=== PATIENT | male | born 1935 | race Caucasian/White ===

== ENCOUNTER 2017-02-10 11:36 | Inpatient (IN) | payer MEDICARE, OTHER ==
[~2017-02-10] VITALS: Ht 172.7 cm; Wt 88.2 kg
[2017-02-10] MEDS: IV NORMAL SALINE 1000ML BAG 1,000 ML IV SCH ×2 (01:30→15:45)
[~2017-02-10 11:36] MED LIST: ASPI-482 PO; GLIP10TA13 PO; INSU100I13 SQ; LOVA40TA2 PO; PIOG45TA19 PO
[2017-02-10 12:14] LABS: BILIRUBIN,URINE NEGATIVE (NEG); GLUCOSE,URINE 500 mg/dL (NEG); NITRITE,URINE NEGATIVE (NEG); PROTEIN,URINE 100 mg/dL (NEG-TRACE); UROBILINOGEN,URINE 0.2 mg/dL (0.2 mg/dL)
[2017-02-10] MEDS ORDERED: ONDANSETRON PF 4 MG/2 ML VIAL. IV ONE (12:15)
[2017-02-10] MEDS ORDERED: MORPHINE SULFATE 4 MG/ML DISP.SYRIN. IV ONE (12:15)
--- NOTE | 2017-02-10 12:17 | PHYS DOC ---
Past Medical History Past Medical History: CAD, Diabetes-Type II, Hypertension, Renal Disease, Unknown, Other Additional Past Medical Histor: enlarged prostate, 1 functioning kidney Past Surgical History: Cancer Surgery, Coronary Bypass Surgery, Knee Replacement Additional Past Surgical Histo: cardiac bypass, back, prostate Alcohol Use: None Drug Use: None Adult General Chief Complaint Chief Complaint: MULTIPLE COMPLAINTS HPI HPI 81-year-old male who reports he awoke with significant right-sided flank pain that does radiate somewhat into his right groin area. He also reports some mild dysuria type symptoms. Denies any fever or chills. Denies any nausea or vomiting. Upon my initial assessment, the patient does not appear to be in any acute distress but does rate his pain an 8 out of 10) early to the right CVA region. Patient does have history of kidney disease and is currently in the process of discussing dialysis. He states he only has one functional right kidney. His left kidney apparently atrophied many years ago for unknown reasons. Denies any history of significant abdominal surgery but has history of open-heart surgery. Pulses last bowel movement was yesterday morning and was not abnormal but he does report he has been constipated. He denies any blood in his stool. Review of Systems Review of Systems Constitutional: Denies fever or chills [] Eyes: Denies change in visual acuity, redness, or eye pain [] HENT: Denies nasal congestion or sore throat [] Respiratory: Denies cough or shortness of breath [] Cardiovascular: No additional information not addressed in HPI [] GI: Has abdominal pain, denies nausea, denies vomiting, denies bloody stools or diarrhea [] : Has dysuria, denies hematuria [] Musculoskeletal: Denies back pain or joint pain [] Integument: Denies rash or skin lesions [] Neurologic: Denies headache, focal weakness or sensory changes [] Endocrine: Denies polyuria or polydipsia [] Current Medications Current Medications Current Medications Medications (Trade) Dose Ordered Sig/Naldo Start Time Stop Time Status Last Admin Dose Admin Ceftriaxone Sodium 50 ml @ 100 mls/hr 1X ONCE 02/10/17 13:30 02/10/17 13:59 DC 02/10/17 13:33 100 MLS/HR Hydralazine HCl (Apresoline) 10 mg 1X ONCE 02/10/17 13:45 02/10/17 13:46 DC 02/10/17 13:52 10 MG Lidocaine HCl (Glydo (Lidocaine) Jelly) 1 eduard 1X ONCE 02/10/17 13:45 02/10/17 13:46 DC 02/10/17 14:09 1 EDUARD Morphine Sulfate 4 mg PRN Q2HR PRN 02/10/17 13:30 02/11/17 13:29 02/10/17 13:52 4 MG Ondansetron HCl (Zofran) 4 mg PRN Q8HRS PRN 02/10/17 13:30 02/10/17 14:36 DC Sodium Chloride 1,000 ml @ 100 mls/hr Q10H 02/10/17 13:26 02/11/17 13:25 02/10/17 15:45 100 MLS/HR Allergies Allergies Allergies Coded Allergies Type Severity Reaction Last Updated Verified Penicillins Allergy Intermediate Hives 02/10/17 Yes Physical Exam Physical Exam Constitutional: Well developed, well nourished, no acute distress, non-toxic appearance. [] HENT: Normocephalic, atraumatic, bilateral external ears normal, oropharynx moist, no oral exudates, nose normal. [] Eyes: PERRLA, EOMI, conjunctiva normal, no discharge. [] Neck: Normal range of motion, no tenderness, supple, no stridor. [] Cardiovascular:Heart rate regular rhythm, no murmur [] Lungs & Thorax: Bilateral breath sounds clear to auscultation [] Abdomen: Bowel sounds normal, soft, no tenderness, no masses, no pulsatile masses. [] Skin: Warm, dry, no erythema, no rash. [] Back: No tenderness, right CVA tenderness. [] Extremities: No tenderness, no cyanosis, no clubbing, ROM intact, no edema. [] Neurologic: Alert and oriented X 3, normal motor function, normal sensory function, no focal deficits noted. [] Psychologic: Affect normal, judgement normal, mood normal. [] Current Patient Data Vital Signs Vital Signs Date Time Temp Pulse Resp B/P (MAP) Pulse Ox O2 Delivery O2 Flow Rate FiO2 02/10/17 13:55 64 20 176/81 (112) 98 Room Air 02/10/17 11:45 98.8 98.8 Lab Values Laboratory Tests Test 02/10/17 11:42 02/10/17 12:15 Urine Collection Type Unknown Urine Color Yellow Urine Clarity Clear Urine pH 6.0 Urine Specific [place] 1.010 Urine Protein 100 mg/dL (NEG-TRACE) Urine Glucose (UA) 500 mg/dL (NEG) Urine Ketones (Stick) Negative mg/dL (NEG) Urine Blood Small (NEG) Urine Nitrite Negative (NEG) Urine Bilirubin Negative (NEG) Urine Urobilinogen Dipstick 0.2 mg/dL (0.2 mg/dL) Urine Leukocyte Esterase Negative (NEG) Urine RBC 6-10 /HPF (0-2) Urine WBC Occ /HPF (0-4) Urine Squamous Epithelial Cells Occ /LPF Urine Bacteria 0 /HPF (0-FEW) Urine Mucus Slight /LPF White Blood Count 9.9 x10^3/uL (4.0-11.0) Red Blood Count 4.82 x10^6/uL (4.30-5.70) Hemoglobin 13.8 g/dL (13.0-17.5) Hematocrit 42.5 % (39.0-53.0) Mean Corpuscular Volume 88 fL (79-100) Mean Corpuscular Hemoglobin 29 pg (25-35) Mean Corpuscular Hemoglobin Concent 33 g/dL (31-37) Red Cell Distribution Width 15.6 % (11.5-14.5) H Platelet Count 187 x10^3/uL (140-400) Neutrophils (%) (Auto) 80 % (31-73) H Lymphocytes (%) (Auto) 13 % (24-48) L Monocytes (%) (Auto) 7 % (0-9) Eosinophils (%) (Auto) 0 % (0-3) Basophils (%) (Auto) 1 % (0-3) Neutrophils # (Auto) 7.9 x10^3uL (1.8-7.7) H Lymphocytes # (Auto) 1.3 x10^3/uL (1.0-4.8) Monocytes # (Auto) 0.7 x10^3/uL (0.0-1.1) Eosinophils # (Auto) 0.0 x10^3/uL (0.0-0.7) Basophils # (Auto) 0.1 x10^3/uL (0.0-0.2) Sodium Level 139 mmol/L (136-145) Potassium Level 4.8 mmol/L (3.5-5.1) Chloride Level 104 mmol/L (98-107) Carbon Dioxide Level 22 mmol/L (21-32) Anion Gap 13 (6-14) Blood Urea Nitrogen 69 mg/dL (8-26) H Creatinine 4.2 mg/dL (0.7-1.3) H Estimated GFR (Cockcroft-Gault) 13.7 Glucose Level 174 mg/dL (70-99) H Calcium Level 8.7 mg/dL (8.5-10.1) Laboratory Tests 02/10/17 12:15 Laboratory Tests 02/10/17 12:15 EKG EKG [] Radiology/Procedures Radiology/Procedures Examination: CT of the abdomen pelvis without contrast History: History of right-sided flank pain Comparison: None available Technique: Axial CT images of the abdomen pelvis were performed without contrast with coronal and sagittal reformats are performed PQRS Compliance Statement: One or more of the following individualized dose reduction techniques were utilized for this examination: 1. Automated exposure control 2. Adjustment of the mA and/or kV according to patient size 3. Use of iterative reconstruction technique Findings: Minimal right upper lobe atelectasis. Minimal bibasal lung atelectasis identified. No evidence of free air identified in the abdomen. The evaluation of the solid organs is limited due to lack of IV contrast. The evaluation of bowel is limited lack of oral contrast. The visualized noncontrasted liver, spleen, adrenals grossly appears unremarkable. The gallbladder is mildly distended. Small hyperdensity is identified in the proximal gallbladder likely gallstones. The visualized pancreas grossly appears unremarkable. The stomach is mildly distended. The small bowel is nondilated. Feces and gas noted throughout the colon. Multiple sigmoid colon diverticulosis. Moderate enlarged prostate gland. The urinary bladder is significantly distended. Moderate right-sided hydronephrosis with moderate proximal hydroureter identified. There is transition point identified at the junction of the proximal and mid right ureter with collapsed appearance of the mid and distal portion of the ureter distal to the proximal portion. An obstructing calculus is not identified. There is mild inflammatory fat stranding identified about the right kidney in the right ureter. Exophytic 1.6 cm density measuring 35 Hounsfield units identified in the superior pole of the right kidney. Moderate to severe atherosclerotic changes identified in the aorta. Moderate enlarged prostate gland. The left kidney is atrophic. Moderate degenerative changes thoracal lumbar spine. Impression: 1. Moderate right-sided hydronephrosis with moderate proximal hydroureter identified. There is transition point identified at the junction of the proximal and mid right ureter with collapsed appearance of the mid and distal portion of the ureter distal to the proximal portion. Could be due to stricture or underlying mucosal lesion. An obstructing calculus is not identified. 2. There is mild inflammatory fat stranding identified about the right kidney could be secondary to back pressure or pyelonephritis. 3. Significantly distended urinary bladder with enlarged appearing prostate gland could be due to bladder outlet obstruction. 4. 1.6 cm exophytic density measuring 30 Hounsfield units identified in the right kidney could be a hyperdense cyst or lesion. Recommend follow-up ultrasound. 5. Gallstones identified within the gallbladder. 6. Multiple sigmoid colon diverticulosis. Course & Med Decision Making Course & Med Decision Making Pertinent Labs and Imaging studies reviewed. (See chart for details) 81-year-old male who has significant right-sided flank pain that has occurred rather suddenly in the night and is somewhat colicky nature will have full laboratory workup including a CT of his abdomen and pelvis without contrast. His laboratory workup reveals an elevated creatinine that has steadily increased from previous levels. His urine shows small amounts of blood but no other acute abnormality. His CBC is unremarkable. His CT of his abdomen and pelvis mistreated mild inflammatory stranding in the right kidney that could be related to pyelonephritis as well as significant right sided hydronephrosis and moderate proximal hydroureter which is not likely related to a stone but more likely related to a ureteral stricture at the mid and distal portion of the right ureter. I discussed these findings with the hospitalist, Dr. Yadav, who agreed to admit with nephrology consult. She stated she would have someone from urology see the patient is on the hospital. A urinary catheter was placed and dose of IV Rocephin was administered. Consult to nephrology was placed. Dragon Disclaimer Dragon Disclaimer This electronic medical record was generated, in whole or in part, using a voice recognition dictation system. Departure Departure Impression: Primary Impression: Renal failure Additional Impressions: Hydronephrosis Pyelonephritis Disposition: 09 ADMITTED INPATIENT Admitting Physician: Renata Yadav Condition: STABLE Referrals: ADWOA DIAZ APRN (PCP) Problem Qualifiers BJ SMITH DO February 10, 2017 12:17
[2017-02-10 12:22] LABS: BACTERIA,URINE 0 /HPF (0-FEW); SQUAMOUS EPITHELIAL CELL,UR OCC /LPF; WBC,URINE OCC /HPF (0-4)
[2017-02-10 12:26] LABS: BASO # 0.1 x10^3/uL (0.0-0.2); BASO % 1 % (0-3); EOS % 0 % (0-3); HEMATOCRIT 42.5 % (39.0-53.0); HEMOGLOBIN 13.8 g/dL (13.0-17.5); LYMPH # 1.3 x10^3/uL (1.0-4.8); LYMPH % 13 % (24-48); MEAN CORPUSCULAR HEMOGLOBIN 29 pg (25-35); MEAN CORPUSCULAR HGB CONC 33 g/dL (31-37); MEAN CORPUSCULAR VOLUME 88 fL (79-100); MONO % 7 % (0-9); NEUT % 80 % (31-73); PLATELET COUNT 187 x10^3/uL (140-400); RED BLOOD COUNT 4.82 x10^6/uL (4.30-5.70); RED CELL DISTRIBUTION WIDTH 15.6 % (11.5-14.5); WHITE BLOOD COUNT 9.9 x10^3/uL (4.0-11.0)
[2017-02-10 12:32] LABS: CALCIUM 8.7 mg/dL (8.5-10.1); CREATININE 4.2 mg/dL (0.7-1.3); GFR 13.7; POTASSIUM 4.8 mmol/L (3.5-5.1)
--- NOTE | 2017-02-10 13:09 | RAD ---
Examination: CT of the abdomen pelvis without contrast History: History of right-sided flank pain Comparison: None available Technique: Axial CT images of the abdomen pelvis were performed without contrast with coronal and sagittal reformats are performed PQRS Compliance Statement: One or more of the following individualized dose reduction techniques were utilized for this examination: 1. Automated exposure control 2. Adjustment of the mA and/or kV according to patient size 3. Use of iterative reconstruction technique Findings: Minimal right upper lobe atelectasis. Minimal bibasal lung atelectasis identified. No evidence of free air identified in the abdomen. The evaluation of the solid organs is limited due to lack of IV contrast. The evaluation of bowel is limited lack of oral contrast. The visualized noncontrasted liver, spleen, adrenals grossly appears unremarkable. The gallbladder is mildly distended. Small hyperdensity is identified in the proximal gallbladder likely gallstones. The visualized pancreas grossly appears unremarkable. The stomach is mildly distended. The small bowel is nondilated. Feces and gas noted throughout the colon. Multiple sigmoid colon diverticulosis. Moderate enlarged prostate gland. The urinary bladder is significantly distended. Moderate right-sided hydronephrosis with moderate proximal hydroureter identified. There is transition point identified at the junction of the proximal and mid right ureter with collapsed appearance of the mid and distal portion of the ureter distal to the proximal portion. An obstructing calculus is not identified. There is mild inflammatory fat stranding identified about the right kidney in the right ureter. Exophytic 1.6 cm density measuring 35 Hounsfield units identified in the superior pole of the right kidney. Moderate to severe atherosclerotic changes identified in the aorta. Moderate enlarged prostate gland. The left kidney is atrophic. Moderate degenerative changes thoracal lumbar spine. Impression: 1. Moderate right-sided hydronephrosis with moderate proximal hydroureter identified. There is transition point identified at the junction of the proximal and mid right ureter with collapsed appearance of the mid and distal portion of the ureter distal to the proximal portion. Could be due to stricture or underlying mucosal lesion. An obstructing calculus is not identified. 2. There is mild inflammatory fat stranding identified about the right kidney could be secondary to back pressure or pyelonephritis. 3. Significantly distended urinary bladder with enlarged appearing prostate gland could be due to bladder outlet obstruction. 4. 1.6 cm exophytic density measuring 30 Hounsfield units identified in the right kidney could be a hyperdense cyst or lesion. Recommend follow-up ultrasound. 5. Gallstones identified within the gallbladder. 6. Multiple sigmoid colon diverticulosis.
[2017-02-10] MEDS ORDERED: ONDANSETRON PF 4 MG/2 ML VIAL. IV PRN ×2 (13:30→14:33)
[2017-02-10] MEDS ORDERED: hydrALAZINE 20 MG/ML VIAL. IVP ONE (13:45)
[2017-02-10] MEDS ORDERED: LIDOCAINE 2% JELLY 6ML IN APPLICATOR. MM ONE (13:45)
[2017-02-10] MEDS: MORPHINE SULFATE 4 MG/ML DISP.SYRIN. IV PRN ×2 (13:52→17:26)
--- NOTE | 2017-02-10 14:23 | ACF ---
Admission Forms Criteria PYELONEPHRITIS, ACUTE Clinical Indications for Admission to Inpatient Care (Place 'X' for any and all applicable criteria): Admission is indicated for ANY ONE of the following 1,2,3,4,5 [ ]I. Outpatient treatment has failed or is not feasible (eg, multidrug- resistant organism).5 [ ]II. beyond 24 weeks' gestation6 [ ]III. Hemodynamic instability [ ]IV. Immunocompromised state (eg, AIDS, diabetes, sickle cell disease) [X]V. Known renal or urologic abnormalities (eg, indwelling catheter, structural abnormalities, renal calculi, urinary stent, previous urologic surgery) [ ]. Condition that requires drainage procedure, including ANY ONE of the following: [ ]a) Urinary obstruction [ ]b) Pyelitis [ ]c) Pyonephrosis [ ]d) Renal or perinephric abscess [ ]e) Emphysematous pyelonephritis 7 [X]VII. Inpatient admission required rather than observation care (Also use Pyelonephritis, Acute: Observation Care Criteria as appropriate) because of ANY ONE of the following: [ ]a) High fever or infection requiring inpatient admission as indicated by ANY ONE of [id number] [ ]A. Documented bacteremia [ ]B. Temp>104.9 [id number] (oral) [ ]C. Temp>103.10F (oral) or <96.80F (rectal) that does not respond to all emergency treatment [ ]b) Acute renal failure [ ]c) Other significant finding or clinical condition judged not to be within the scope of observation care [ ]d) IV fluid to replace significant ongoing (eg, for over 24hrs) losses (> 3 L/m2 per day) [X]e) Other condition,treatment or monitoring requiring inpatient admission The original [facility] [employer] content created by [employer] has been revised. The portions of the content which have been revised are identified through the use of italic text or in bold, and [facility] has neither reviewed nor approved the modified material. All other unmodified content is copyright [employer]. Please see references footnoted in the original [facility] [employer] [facility] edition 2016 Admission Criteria Met?: Yes MARIELOS POZO February 10, 2017 14:23
--- NOTE | 2017-02-10 14:33 | PDOC1 ---
History and Physical Date of Admission Date of Admission DATE: 02/10/17 TIME: 14:21 Identification/Chief Complaint Chief Complaint R sided flank pain Problems: Source Source: Caregiver, Chart review, Patient History of Present Illness History of Present Illness 81 y.o [place] male, known to Dr. 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 NO change in BM. Sudden onset pain, no precipitating factor, alleviated by morphine at ER, no radiation, 10/10 at its worst At ER, CT scan I have personally reviewed shows: 1. Moderate right-sided hydronephrosis with moderate proximal hydroureter identified. There is transition point identified at the junction of the proximal and mid right ureter with collapsed appearance of the mid and distal portion of the ureter distal to the proximal portion. Could be due to stricture or underlying mucosal lesion. An obstructing calculus is not identified. 2. There is mild inflammatory fat stranding identified about the right kidney could be secondary to back pressure or pyelonephritis. 3. Significantly distended urinary bladder with enlarged appearing prostate gland could be due to bladder outlet obstruction. 4. 1.6 cm exophytic density measuring 30 Hounsfield units identified in the right kidney could be a hyperdense cyst or lesion. Recommend follow-up ultrasound. 5. Gallstones identified within the gallbladder. 6. Multiple sigmoid colon diverticulosis. Pt feels better 4/10 from 10./10 pain after IV morphine at ER LAbs crea 4 plus, (lower actually than last labs 3 weeks ago as OP, crea was 5, K was high). Some meds adjustments done as OP and so K is normal here,. SOme oliguria today, VS ok Atrophic left kidney, wants to avod HD at all cost if possible. NO hx kidney stones, denies gross hematuria or tamica urine Past Medical History Cardiovascular: CAD, HTN, Hyperlipidemia Pulmonary: Bronchitis Renal/: Chronic renal insuff, Benign prostatic enlarg. Endocrine: Diabetes Past Surgical History Past Surgical History: Other (cardiac caths, stent) Family History Family History: Hypertension Social History Smoke: No ALCOHOL: none Drugs: None Current Problem List Problem List Problems Medical Problems: (1) Hydronephrosis Status: Acute (2) Pyelonephritis Status: Acute (3) Renal failure Status: Acute Problems: Current Medications Current Medications Current Medications Morphine Sulfate 4 mg 1X ONCE IV Last administered on 02/10/17 12:28; Start 02/10/17 at 12:15; Stop 02/10/17 at 12:16; Status DC Ondansetron HCl (Zofran) 4 mg 1X ONCE IV Last administered on 02/10/17 12:26 ; Start 02/10/17 at 12:15; Stop 02/10/17 at 12:16; Status DC Ceftriaxone Sodium 50 ml @ 100 mls/hr 1X ONCE IV Last administered on 13:33; Start 02/10/17 at 13:30; Stop 02/10/17 at 13:59; Status DC Ondansetron HCl (Zofran) 4 mg PRN Q8HRS PRN IV NAUSEA/VOMITING; Start 02/10/17 at 13:30; Stop 02/11/17 at 13:29 Morphine Sulfate 4 mg PRN Q2HR PRN IV PAIN Last administered on 02/10/17 13:52 ; Start 02/10/17 at 13:30; Stop 02/11/17 at 13:29 Sodium Chloride 1,000 ml @ 100 mls/hr Q10H IV ; Start 02/10/17 at 13:26; Stop 02/11/17 at 13:25 Lidocaine HCl (Glydo (Lidocaine) Jelly) 1 eduard 1X ONCE MM ; Start 02/10/17 at 13 :45; Stop 02/10/17 at 13:46; Status DC Hydralazine HCl (Apresoline) 10 mg 1X ONCE IVP Last administered on 02/10/17 13:52; Start 02/10/17 at 13:45; Stop 02/10/17 at 13:46; Status DC Active Scripts Active Reported Aspir 81 (Aspirin) 81 Mg Tablet.dr 1 Tab PO DAILY Lantus Solostar (Insulin Glargine,Hum.rec.anlog) 100 Unit/1 Ml Insuln.pen 20 Unit SQ QHS Actos (Pioglitazone Hcl) 45 Mg Tablet 1 Tab PO DAILY Lovastatin 40 Mg Tablet 1 Tab PO DAILY Allergies Allergies: Coded Allergies: Penicillins (Verified Allergy, Intermediate, Hives, 02/10/17) ROS General: No: Chills, Night Sweats, Fatigue, Malaise, Appetite, Other PSYCHOLOGICAL ROS: No: Anxiety, Behavioral Disorder, Concentration difficultie , Decreased libido, Depression, Disorientation, Hallucinations, Hostility, Irritablity, Memory difficulties, Mood Swings, Obsessive thoughts, Physical abuse, Sexual abuse, Sleep disturbances, Suicidal ideation, Other Eyes: No Blurry vision, No Decreased vision, No Double vision, No Dry eyes, No Excessive tearing, No Eye Pain, No Itchy Eyes, No Loss of vision, No Photophobia , No Scotomata, No Uses contacts, No Uses glasses, No Other HEENT: No: Heacaches, Visual Changes, Hearing change, Nasal congestion, Nasal discharge, Oral lesions, Sinus pain, Sore Throat, Epistaxis, Sneezing, Snoring, Tinnitus, Vertigo, Vocal changes, Other Hematological and Lymphatic: No: Bleeding Problems, Blood Clots, Blood Transfusions, Brusing, Night Sweats, Pallor, Swollen Lymph Nodes, Other ENDOCRINE: No: Breast Changes, Galactorrhea, Hair Pattern Changes, Hot Flashes , Malaise/lethargy, Mood Swings, Palpitations, Polydipsia/polyuria, Skin Changes , Temperature Intolerance, Unexpected Weight Changes, Other Breast: No New/Changing Breast Lumps, No Nipple changes, No Nipple discharge, No Other Respiratory: No: Cough, Hemoptysis, Orthopnea, Pleuritic Pain, Shortness of breath, SOB with excertion, Sputum Changes, Stridor, Tachypnea, Wheezing, Other Cardiovascular: No Chest Pain, No Palpitations, No Orthopnea, No Paroxysmal Noc. Dyspnea, No Edema, No Lt Headedness, No Other Gastrointestinal: Yes Nausea, Yes Abdominal Pain Genitourinary: No Dysuria, No Frequency, No Incontinence, No Hematuria, No Retention, No Discharge, No Urgency, No Pain, No Flank Pain, No Other, No , No , No , No , No , No , No Musculoskeletal: No Gait Disturbance, No Joint Pain, No Joint Stiffness, No Joint Swelling, No Muscle Pain, No Muscular Weakness, No Pain In:, No Swelling In:, No Other Neurological: No Behavorial Changes, No Bowel/Bladder ControlChng, No Confusion , No Dizziness, No Gait Disturbance, No Headaches, No Impaired Coord/balance, No Memory Loss, No Numbness/Tingling, No Seizures, No Speech Problems, No Tremors, No Visual Changes, No Weakness, No Other Skin: No Dry Skin, No Eczema, No Hair Changes, No Lumps, No Mole Changes, No Mottling, No Nail Changes, No Pruritus, No Rash, No Skin Lesion Changes, No Other, No Acne Physical Exam General: Alert, Oriented X3, Cooperative, No acute distress HEENT: Atraumatic, PERRLA, EOMI Lungs: Clear to auscultation, Normal air movement Heart: S1S2, RRR, no thrills, no rubs, no gallops, no murmurs Cardiovascular: S1, S2 Breasts: Normal Abdomen: Normal bowel sounds, Soft, No tenderness, No hepatosplenomegaly, No masses, Other (no guarding, tenderness RLQ area on deep palp; neg kidney punch) Male Genitals Exam: normal genitalia Rectal Exam: not examined PELVIC: Nml ext genitalia Extremities: No clubbing, No cyanosis, No edema, Normal pulses, No tenderness/ swelling Skin: No rashes, No breakdown, No significant lesion Neuro: Normal gait, Normal speech, Strength at 5/5 X4 ext, Normal tone, Sensation intact, Cranial nerves 3-12 NL, Reflexes 2+ Psych/Mental Status: Mental status NL, Mood NL Vitals Vitals Vital Signs Date Time Temp Pulse Resp B/P (MAP) Pulse Ox O2 Delivery O2 Flow Rate FiO2 02/10/17 13:52 69 236/118 02/10/17 13:52 18 Room Air 02/10/17 12:28 99 02/10/17 11:45 98.8 98.8 Labs Labs Laboratory Tests Test 02/10/17 11:42 02/10/17 12:15 Urine Collection Type Unknown Urine Color Yellow Urine Clarity Clear Urine pH 6.0 Urine Specific [place] 1.010 Urine Protein 100 mg/dL (NEG-TRACE) Urine Glucose (UA) 500 mg/dL (NEG) Urine Ketones (Stick) Negative mg/dL (NEG) Urine Blood Small (NEG) Urine Nitrite Negative (NEG) Urine Bilirubin Negative (NEG) Urine Urobilinogen Dipstick 0.2 mg/dL (0.2 mg/dL) Urine Leukocyte Esterase Negative (NEG) Urine RBC 6-10 /HPF (0-2) Urine WBC Occ /HPF (0-4) Urine Squamous Epithelial Cells Occ /LPF Urine Bacteria 0 /HPF (0-FEW) Urine Mucus Slight /LPF White Blood Count 9.9 x10^3/uL (4.0-11.0) Red Blood Count 4.82 x10^6/uL (4.30-5.70) Hemoglobin 13.8 g/dL (13.0-17.5) Hematocrit 42.5 % (39.0-53.0) Mean Corpuscular Volume 88 fL (79-100) Mean Corpuscular Hemoglobin 29 pg (25-35) Mean Corpuscular Hemoglobin Concent 33 g/dL (31-37) Red Cell Distribution Width 15.6 % (11.5-14.5) Platelet Count 187 x10^3/uL (140-400) Neutrophils (%) (Auto) 80 % (31-73) Lymphocytes (%) (Auto) 13 % (24-48) Monocytes (%) (Auto) 7 % (0-9) Eosinophils (%) (Auto) 0 % (0-3) Basophils (%) (Auto) 1 % (0-3) Neutrophils # (Auto) 7.9 x10^3uL (1.8-7.7) Lymphocytes # (Auto) 1.3 x10^3/uL (1.0-4.8) Monocytes # (Auto) 0.7 x10^3/uL (0.0-1.1) Eosinophils # (Auto) 0.0 x10^3/uL (0.0-0.7) Basophils # (Auto) 0.1 x10^3/uL (0.0-0.2) Sodium Level 139 mmol/L (136-145) Potassium Level 4.8 mmol/L (3.5-5.1) Chloride Level 104 mmol/L (98-107) Carbon Dioxide Level 22 mmol/L (21-32) Anion Gap 13 (6-14) Blood Urea Nitrogen 69 mg/dL (8-26) Creatinine 4.2 mg/dL (0.7-1.3) Estimated GFR (Cockcroft-Gault) 13.7 Glucose Level 174 mg/dL (70-99) Calcium Level 8.7 mg/dL (8.5-10.1) Laboratory Tests Test 02/10/17 11:42 02/10/17 12:15 Urine Collection Type Unknown Urine Color Yellow Urine Clarity Clear Urine pH 6.0 Urine Specific [place] 1.010 Urine Protein 100 mg/dL (NEG-TRACE) Urine Glucose (UA) 500 mg/dL (NEG) Urine Ketones (Stick) Negative mg/dL (NEG) Urine Blood Small (NEG) Urine Nitrite Negative (NEG) Urine Bilirubin Negative (NEG) Urine Urobilinogen Dipstick 0.2 mg/dL (0.2 mg/dL) Urine Leukocyte Esterase Negative (NEG) Urine RBC 6-10 /HPF (0-2) Urine WBC Occ /HPF (0-4) Urine Squamous Epithelial Cells Occ /LPF Urine Bacteria 0 /HPF (0-FEW) Urine Mucus Slight /LPF White Blood Count 9.9 x10^3/uL (4.0-11.0) Red Blood Count 4.82 x10^6/uL (4.30-5.70) Hemoglobin 13.8 g/dL (13.0-17.5) Hematocrit 42.5 % (39.0-53.0) Mean Corpuscular Volume 88 fL (79-100) Mean Corpuscular Hemoglobin 29 pg (25-35) Mean Corpuscular Hemoglobin Concent 33 g/dL (31-37) Red Cell Distribution Width 15.6 % (11.5-14.5) Platelet Count 187 x10^3/uL (140-400) Neutrophils (%) (Auto) 80 % (31-73) Lymphocytes (%) (Auto) 13 % (24-48) Monocytes (%) (Auto) 7 % (0-9) Eosinophils (%) (Auto) 0 % (0-3) Basophils (%) (Auto) 1 % (0-3) Neutrophils # (Auto) 7.9 x10^3uL (1.8-7.7) Lymphocytes # (Auto) 1.3 x10^3/uL (1.0-4.8) Monocytes # (Auto) 0.7 x10^3/uL (0.0-1.1) Eosinophils # (Auto) 0.0 x10^3/uL (0.0-0.7) Basophils # (Auto) 0.1 x10^3/uL (0.0-0.2) Sodium Level 139 mmol/L (136-145) Potassium Level 4.8 mmol/L (3.5-5.1) Chloride Level 104 mmol/L (98-107) Carbon Dioxide Level 22 mmol/L (21-32) Anion Gap 13 (6-14) Blood Urea Nitrogen 69 mg/dL (8-26) Creatinine 4.2 mg/dL (0.7-1.3) Estimated GFR (Cockcroft-Gault) 13.7 Glucose Level 174 mg/dL (70-99) Calcium Level 8.7 mg/dL (8.5-10.1) VTE Prophylaxis Ordered VTE Prophylaxis Devices: Yes VTE Pharmacological Prophylaxi: Yes Assessment/Plan Assessment/Plan 1. SIRS POA, possible infectious in etiology, Pyelopnephritis 2. R/o mid ureter obstructive uropathy with some proximal hydronephrosis 3. SOliatry R kidney (atrophic left) 4. CKD stage 5 5. DM, HTN, CAD with cardiac stents chrocni stable 6,. DM 2 insulin requiring with nephropathy 7, Obesity \8. AOCD 9. BPH 10. Incidental CHolelithiasis 11. Diverticulosis 12. Benign R renal cyst 13. Intolerance to PCN (rash, nausea) PLAN: 2 MN IV rocephin Urine cx Insert velasco accurate I and O (reports of oliguria) BMP daily COnsult renal COnsult uro re this CT findings of possible mid ureter obstrcn No nephrotoxins Resume home meds MOrphine for pain PT/OT SSI Brandon WALLACE Md and family CLAUDIO LANIER MD February 10, 2017 14:33
--- NOTE | 2017-02-10 14:42 | ACF ---
Admit Criteria Forms Admit Criteria Forms Admit Criteria Forms PYELONEPHRITIS, ACUTE Clinical Indications for Admission to Inpatient Care (Place 'X' for any and all applicable criteria): Admission is indicated for ANY ONE of the following 1,2,3,4,5 [ ]I. Outpatient treatment has failed or is not feasible (eg, multidrug- resistant organism).5 [ ]II. beyond 24 weeks' gestation6 [ ]III. Hemodynamic instability [ ]IV. Immunocompromised state (eg, AIDS, diabetes, sickle cell disease) [X]V. Known renal or urologic abnormalities (eg, indwelling catheter, structural abnormalities, renal calculi, urinary stent, previous urologic surgery) [ ]. Condition that requires drainage procedure, including ANY ONE of the following: [ ]a) Urinary obstruction [ ]b) Pyelitis [ ]c) Pyonephrosis [ ]d) Renal or perinephric abscess [ ]e) Emphysematous pyelonephritis 7 [X]VII. Inpatient admission required rather than observation care (Also use Pyelonephritis, Acute: Observation Care Criteria as appropriate) because of ANY ONE of the following: [ ]a) High fever or infection requiring inpatient admission as indicated by ANY ONE of ,12 [ ]A. Documented bacteremia [ ]B. Temp>104.9 [id number] (oral) [ ]C. Temp>103.10F (oral) or <96.80F (rectal) that does not respond to all emergency treatment [X]b) Acute renal failure [ ]c) Other significant finding or clinical condition judged not to be within the scope of observation care [ ]d) IV fluid to replace significant ongoing (eg, for over 24hrs) losses (> 3 L/m2 per day) [ ]e) Other condition,treatment or monitoring requiring inpatient admission The original [employer] content created by [employer] has been revised. The portions of the content which have been revised are identified through the use of italic text or in bold, and [email or web address] has neither reviewed nor approved the modified material. All other unmodified content is copyright [employer]. Please see references footnoted in the original [employer] edition 2016 ELAYNE ALVARENGA February 10, 2017 14:42
[2017-02-10] MEDS ORDERED: LABETALOL 20 MG/4 ML DISP.SYRIN. IVP PRN (14:45)
[2017-02-10] MEDS ORDERED: DEXTROSE 50% 25 GM / 50ML DISP.SYRIN. IV PRN (14:45)
[2017-02-10] MEDS: INSULIN ASPART 300 UNITS/3 ML INSULN.PEN SQ SCH (17:00)
[2017-02-10 19:17] VITALS: BP 156/78
[2017-02-10] MEDS ORDERED: INSULIN DETEMIR 300 UNITS/3 ML INSULN.PEN. SQ SCH (21:00)
[2017-02-10] MEDS: ATORVASTATIN CALCIUM 10 MG TABLET. PO SCH (21:04)
[2017-02-10] MEDS: ACETAMINOPHEN 325 MG TABLET. PO PRN (21:27)
[2017-02-10] MEDS: HEPARIN PF for SUB-Q USE 5,000 UNIT/0.5 ML VIAL. SQ SCH (22:58)
[2017-02-10 23:29] VITALS: BP 151/77
[2017-02-11 03:30] VITALS: BP 141/70
[2017-02-11] MEDS ORDERED: IV NORMAL SALINE 500ML BAG 500 ML IV ONE (04:45)
[2017-02-11 04:46] LABS: BASO % 0 % (0-3); EOS % 0 % (0-3); HEMATOCRIT 36.6 % (39.0-53.0); HEMOGLOBIN 12.2 g/dL (13.0-17.5); LYMPH # 1.2 x10^3/uL (1.0-4.8); LYMPH % 13 % (24-48); MEAN CORPUSCULAR HEMOGLOBIN 29 pg (25-35); MEAN CORPUSCULAR HGB CONC 33 g/dL (31-37); MEAN CORPUSCULAR VOLUME 87 fL (79-100); MONO % 6 % (0-9); NEUT % 80 % (31-73); PLATELET COUNT 172 x10^3/uL (140-400); RED BLOOD COUNT 4.19 x10^6/uL (4.30-5.70); RED CELL DISTRIBUTION WIDTH 15.7 % (11.5-14.5); WHITE BLOOD COUNT 9.1 x10^3/uL (4.0-11.0)
[2017-02-11 05:04] LABS: CALCIUM 7.9 mg/dL (8.5-10.1); CREATININE 5.7 mg/dL (0.7-1.3); GFR 9.6
[2017-02-11 05:08] LABS: POTASSIUM 5.4 mmol/L (3.5-5.1)
[2017-02-11] MEDS: HEPARIN PF for SUB-Q USE 5,000 UNIT/0.5 ML VIAL. SQ SCH ×3 (06:29→21:10)
[2017-02-11 07:00] VITALS: BP 115/63
[2017-02-11] MEDS: INSULIN ASPART 300 UNITS/3 ML INSULN.PEN SQ SCH ×4 (08:00→16:48)
[2017-02-11] MEDS: PIOGLITAZONE 15 MG TABLET. PO SCH (08:11)
[2017-02-11] MEDS: ASPIRIN ENTERIC COATED 81 MG TABLET.DR. PO SCH (08:11)
[2017-02-11] MEDS: INSULIN DETEMIR 300 UNITS/3 ML INSULN.PEN. SQ SCH (08:23)
[2017-02-11] MEDS: IV NORMAL SALINE 1000ML BAG 1,000 ML IV SCH (09:17)
--- NOTE | 2017-02-11 09:50 | PDOC ---
Provider Note Provider Note Urology: c/c acute right flank pain, urine retention 81 y/o male acute onset right flank pain, urine retention Hx: CKD- Dr Leung patient atrophic left kidney no hx kidney stones velasco placed in ER large amount ? scott colored urine now heme colored urine with oliguria over night. CT: mod right hydro- etiology? IMPRESSION: -Acute on top of chronic kidney failure -urine retention- previous hx of TURP -moderate right hydronephrosis Plan: pelvic ultrasound to check placement of velasco catheter renal ultrasound f/u right hydronephrosis, no longer experiencing right flank pain may need cystoscopy right retrograde, right stent placement tomorrow. NAPOLEON CORNELL DO February 11, 2017 09:50
--- NOTE | 2017-02-11 10:55 | PDOC2 ---
CONSULT Date of Consult Date of Consult DATE: 02/11/17 TIME: 10:48 Reason for Consult Reason for Consult: RENAL FAILURE Referring Physician Referring Physician: YANNICK Identification/Chief Complaint Chief Complaint THIS IS AN 81 YR OLD ADMITTED WITH SUDDEN ONSET OF RIGHT FLANK PAIN. HE IS NOTED TO HAVE A RIGHT HYDRONEPHROSIS ON IMAGING DONE. 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 CR IS UP TO 5.7 WITH A K OF 5.4. IMAGES ALSO SHOWED A VERY DISTENDED URINARY BLADDER WITH PROSTATIC HYPERTROPHY. A LUGO PLACED YIELDED A GOOD AMT OF URINE BUT NOT DOCUMENTED. SINCE THEN HE HAS DEVELOPED HEMATURIA AND ANURIA. 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 Endocrine: Diabetes Past Surgical History Past Surgical History: Other (cardiac caths, stent) Family History Family History: Hypertension Social History No ALCOHOL: none Drugs: None Lives: with Family Current Problem List Problem List Problems Medical Problems: (1) Hydronephrosis Status: Acute (2) Pyelonephritis Status: Acute (3) Renal failure Status: Acute Current Medications Current Medications Current Medications Morphine Sulfate 4 mg 1X ONCE IV Last administered on 02/10/17 12:28; Start 02/10/17 at 12:15; Stop 02/10/17 at 12:16; Status DC Ondansetron HCl (Zofran) 4 mg 1X ONCE IV Last administered on 02/10/17 12:26 ; Start 02/10/17 at 12:15; Stop 02/10/17 at 12:16; Status DC Ceftriaxone Sodium 50 ml @ 100 mls/hr 1X ONCE IV Last administered on 13:33; Start 02/10/17 at 13:30; Stop 02/10/17 at 13:59; Status DC Ondansetron HCl (Zofran) 4 mg PRN Q8HRS PRN IV NAUSEA/VOMITING; Start 02/10/17 at 13:30; Stop 02/10/17 at 14:36; Status DC Morphine Sulfate 4 mg PRN Q2HR PRN IV PAIN Last administered on 02/10/17 17:26 ; Start 02/10/17 at 13:30; Stop 02/11/17 at 13:29 Sodium Chloride 1,000 ml @ 100 mls/hr Q10H IV Last administered on 02/11/17 09:17; Start 02/10/17 at 13:26; Stop 02/11/17 at 13:25 Lidocaine HCl (Glydo (Lidocaine) Jelly) 1 eduard 1X ONCE MM Last administered on 02/10/17 14:09; Start 02/10/17 at 13:45; Stop 02/10/17 at 13:46; Status DC Hydralazine HCl (Apresoline) 10 mg 1X ONCE IVP Last administered on 02/10/17 13:52; Start 02/10/17 at 13:45; Stop 02/10/17 at 13:46; Status DC Ondansetron HCl (Zofran) 4 mg PRN Q6HRS PRN IV NAUSEA/VOMITING Last administered on 02/10/17 21:29; Start 02/10/17 at 14:33; Stop 02/11/17 at 14:32 Hydralazine HCl (Apresoline) 10 mg PRN Q4HRS PRN IVP ELEVATED BP, SEE COMMENTS ; Start 02/10/17 at 14:45 Insulin Aspart (NovoLOG) 0-9 UNITS TIDWMEALS SQ ; Start 02/10/17 at 17:00 Dextrose (Dextrose 50%-Water Syringe) 12.5 gm PRN Q15MIN PRN IV SEE COMMENTS; Start 02/10/17 at 14:45 Acetaminophen (Tylenol) 650 mg PRN Q6HRS PRN PO fever Last administered on 02/10 21:27; Start 02/10/17 at 14:45 Heparin Sodium (Porcine) (Heparin Sq) 5,000 unit Q8HRS SQ Last administered on 02/11/17 06:29; Start 02/10/17 at 22:00 Aspirin (Ecotrin) 81 mg [id number] PO Last administered on 02/11/17 08:11; Start 02/11/17 at 08:00 Insulin Detemir (Levemir) 20 units QHS SQ ; Start 02/10/17 at 21:00; Stop at 09:00; Status DC Atorvastatin Calcium (Lipitor) 10 mg QHS PO Last administered on 02/10/17 21: 04; Start 02/10/17 at 21:00 Pioglitazone HCl (Actos) 45 mg DAILY PO Last administered on 02/11/17 08:11; Start 02/11/17 at 09:00 Labetalol HCl (Normodyne) 20 mg PRN Q2HR PRN IVP HYPERTENSION, SEE COMMENTS; Start 02/10/17 at 14:45 Insulin Detemir (Levemir) 20 units DAILY08 SQ Last administered on 02/11/17 08 :23; Start 02/11/17 at 08:00 Sodium Chloride 500 ml @ 500 mls/hr 1X ONCE IV ; Start 02/11/17 at 04:45; Stop 02/11/17 at 05:44; Status DC Active Scripts Active Reported Aspir 81 (Aspirin) 81 Mg Tablet.dr 1 Tab PO DAILY Lantus Solostar (Insulin Glargine,Hum.rec.anlog) 100 Unit/1 Ml Insuln.pen 20 Unit SQ QHS Actos (Pioglitazone Hcl) 45 Mg Tablet 1 Tab PO DAILY Lovastatin 40 Mg Tablet 1 Tab PO DAILY Allergies Allergies: Coded Allergies: Penicillins (Verified Allergy, Intermediate, Hives, 02/10/17) ROS General: YES: Fatigue Eyes: Yes Decreased vision HEENT: YES: Heacaches, Hearing change Respiratory: YES: Cough Gastrointestinal: Yes Constipation Genitourinary: YES Frequency, YES Flank Pain Musculoskeletal: Yes Muscular Weakness Neurological: Yes Weakness Skin: Yes Dry Skin Physical Exam General: Alert, Oriented X3, Cooperative, No acute distress HEENT: Atraumatic, PERRLA Lungs: Clear to auscultation, Normal air movement Heart: Regular rate Abdomen: Normal bowel sounds, Soft, No tenderness Extremities: No clubbing Neuro: Normal speech, Cranial nerves 3-12 NL Psych/Mental Status: Mental status NL, Mood NL MUSCULOSKELETAL: No deformity, No swelling Vitals VITALS Vital Signs Date Time Temp Pulse Resp B/P (MAP) Pulse Ox O2 Delivery O2 Flow Rate FiO2 02/11/17 07:45 Room Air 02/11/17 07:00 98.0 61 18 115/63 (80) 94 98.0 Labs Labs Laboratory Tests Test 02/10/17 11:42 02/10/17 12:15 02/10/17 16:18 02/10/17 21:11 Urine Collection Type Unknown Urine Color Yellow Urine Clarity Clear Urine pH 6.0 Urine Specific [place] 1.010 Urine Protein 100 mg/dL (NEG-TRACE) Urine Glucose (UA) 500 mg/dL (NEG) Urine Ketones (Stick) Negative mg/dL (NEG) Urine Blood Small (NEG) Urine Nitrite Negative (NEG) Urine Bilirubin Negative (NEG) Urine Urobilinogen Dipstick 0.2 mg/dL (0.2 mg/dL) Urine Leukocyte Esterase Negative (NEG) Urine RBC 6-10 /HPF (0-2) Urine WBC Occ /HPF (0-4) Urine Squamous Epithelial Cells Occ /LPF Urine Bacteria 0 /HPF (0-FEW) Urine Mucus Slight /LPF White Blood Count 9.9 x10^3/uL (4.0-11.0) Red Blood Count 4.82 x10^6/uL (4.30-5.70) Hemoglobin 13.8 g/dL (13.0-17.5) Hematocrit 42.5 % (39.0-53.0) Mean Corpuscular Volume 88 fL (79-100) Mean Corpuscular Hemoglobin 29 pg (25-35) Mean Corpuscular Hemoglobin Concent 33 g/dL (31-37) Red Cell Distribution Width 15.6 % (11.5-14.5) Platelet Count 187 x10^3/uL (140-400) Neutrophils (%) (Auto) 80 % (31-73) Lymphocytes (%) (Auto) 13 % (24-48) Monocytes (%) (Auto) 7 % (0-9) Eosinophils (%) (Auto) 0 % (0-3) Basophils (%) (Auto) 1 % (0-3) Neutrophils # (Auto) 7.9 x10^3uL (1.8-7.7) Lymphocytes # (Auto) 1.3 x10^3/uL (1.0-4.8) Monocytes # (Auto) 0.7 x10^3/uL (0.0-1.1) Eosinophils # (Auto) 0.0 x10^3/uL (0.0-0.7) Basophils # (Auto) 0.1 x10^3/uL (0.0-0.2) Erythrocyte Sedimentation Rate 7 (0-15) Sodium Level 139 mmol/L (136-145) Potassium Level 4.8 mmol/L (3.5-5.1) Chloride Level 104 mmol/L (98-107) Carbon Dioxide Level 22 mmol/L (21-32) Anion Gap 13 (6-14) Blood Urea Nitrogen 69 mg/dL (8-26) Creatinine 4.2 mg/dL (0.7-1.3) Estimated GFR (Cockcroft-Gault) 13.7 Glucose Level 174 mg/dL (70-99) Hemoglobin A1c 7.6 % (4.8-5.6) Calcium Level 8.7 mg/dL (8.5-10.1) Glucose (Fingerstick) 134 mg/dL (70-99) 157 mg/dL (70-99) Test 02/11/17 03:41 02/11/17 03:42 02/11/17 07:20 White Blood Count 9.1 x10^3/uL (4.0-11.0) Red Blood Count 4.19 x10^6/uL (4.30-5.70) Hemoglobin 12.2 g/dL (13.0-17.5) Hematocrit 36.6 % (39.0-53.0) Mean Corpuscular Volume 87 fL (79-100) Mean Corpuscular Hemoglobin 29 pg (25-35) Mean Corpuscular Hemoglobin Concent 33 g/dL (31-37) Red Cell Distribution Width 15.7 % (11.5-14.5) Platelet Count 172 x10^3/uL (140-400) Neutrophils (%) (Auto) 80 % (31-73) Lymphocytes (%) (Auto) 13 % (24-48) Monocytes (%) (Auto) 6 % (0-9) Eosinophils (%) (Auto) 0 % (0-3) Basophils (%) (Auto) 0 % (0-3) Neutrophils # (Auto) 7.3 x10^3uL (1.8-7.7) Lymphocytes # (Auto) 1.2 x10^3/uL (1.0-4.8) Monocytes # (Auto) 0.6 x10^3/uL (0.0-1.1) Eosinophils # (Auto) 0.0 x10^3/uL (0.0-0.7) Basophils # (Auto) 0.0 x10^3/uL (0.0-0.2) Sodium Level 140 mmol/L (136-145) Potassium Level 5.4 mmol/L (3.5-5.1) Chloride Level 107 mmol/L (98-107) Carbon Dioxide Level 22 mmol/L (21-32) Anion Gap 11 (6-14) Blood Urea Nitrogen 76 mg/dL (8-26) Creatinine 5.7 mg/dL (0.7-1.3) Estimated GFR (Cockcroft-Gault) 9.6 Glucose Level 143 mg/dL (70-99) Calcium Level 7.9 mg/dL (8.5-10.1) Glucose (Fingerstick) 134 mg/dL (70-99) Laboratory Tests Test 02/10/17 11:42 02/10/17 12:15 02/10/17 16:18 02/10/17 21:11 Urine Collection Type Unknown Urine Color Yellow Urine Clarity Clear Urine pH 6.0 Urine Specific [place] 1.010 Urine Protein 100 mg/dL (NEG-TRACE) Urine Glucose (UA) 500 mg/dL (NEG) Urine Ketones (Stick) Negative mg/dL (NEG) Urine Blood Small (NEG) Urine Nitrite Negative (NEG) Urine Bilirubin Negative (NEG) Urine Urobilinogen Dipstick 0.2 mg/dL (0.2 mg/dL) Urine Leukocyte Esterase Negative (NEG) Urine RBC 6-10 /HPF (0-2) Urine WBC Occ /HPF (0-4) Urine Squamous Epithelial Cells Occ /LPF Urine Bacteria 0 /HPF (0-FEW) Urine Mucus Slight /LPF White Blood Count 9.9 x10^3/uL (4.0-11.0) Red Blood Count 4.82 x10^6/uL (4.30-5.70) Hemoglobin 13.8 g/dL (13.0-17.5) Hematocrit 42.5 % (39.0-53.0) Mean Corpuscular Volume 88 fL (79-100) Mean Corpuscular Hemoglobin 29 pg (25-35) Mean Corpuscular Hemoglobin Concent 33 g/dL (31-37) Red Cell Distribution Width 15.6 % (11.5-14.5) Platelet Count 187 x10^3/uL (140-400) Neutrophils (%) (Auto) 80 % (31-73) Lymphocytes (%) (Auto) 13 % (24-48) Monocytes (%) (Auto) 7 % (0-9) Eosinophils (%) (Auto) 0 % (0-3) Basophils (%) (Auto) 1 % (0-3) Neutrophils # (Auto) 7.9 x10^3uL (1.8-7.7) Lymphocytes # (Auto) 1.3 x10^3/uL (1.0-4.8) Monocytes # (Auto) 0.7 x10^3/uL (0.0-1.1) Eosinophils # (Auto) 0.0 x10^3/uL (0.0-0.7) Basophils # (Auto) 0.1 x10^3/uL (0.0-0.2) Erythrocyte Sedimentation Rate 7 (0-15) Sodium Level 139 mmol/L (136-145) Potassium Level 4.8 mmol/L (3.5-5.1) Chloride Level 104 mmol/L (98-107) Carbon Dioxide Level 22 mmol/L (21-32) Anion Gap 13 (6-14) Blood Urea Nitrogen 69 mg/dL (8-26) Creatinine 4.2 mg/dL (0.7-1.3) Estimated GFR (Cockcroft-Gault) 13.7 Glucose Level 174 mg/dL (70-99) Hemoglobin A1c 7.6 % (4.8-5.6) Calcium Level 8.7 mg/dL (8.5-10.1) Glucose (Fingerstick) 134 mg/dL (70-99) 157 mg/dL (70-99) Test 02/11/17 03:41 02/11/17 03:42 02/11/17 07:20 White Blood Count 9.1 x10^3/uL (4.0-11.0) Red Blood Count 4.19 x10^6/uL (4.30-5.70) Hemoglobin 12.2 g/dL (13.0-17.5) Hematocrit 36.6 % (39.0-53.0) Mean Corpuscular Volume 87 fL (79-100) Mean Corpuscular Hemoglobin 29 pg (25-35) Mean Corpuscular Hemoglobin Concent 33 g/dL (31-37) Red Cell Distribution Width 15.7 % (11.5-14.5) Platelet Count 172 x10^3/uL (140-400) Neutrophils (%) (Auto) 80 % (31-73) Lymphocytes (%) (Auto) 13 % (24-48) Monocytes (%) (Auto) 6 % (0-9) Eosinophils (%) (Auto) 0 % (0-3) Basophils (%) (Auto) 0 % (0-3) Neutrophils # (Auto) 7.3 x10^3uL (1.8-7.7) Lymphocytes # (Auto) 1.2 x10^3/uL (1.0-4.8) Monocytes # (Auto) 0.6 x10^3/uL (0.0-1.1) Eosinophils # (Auto) 0.0 x10^3/uL (0.0-0.7) Basophils # (Auto) 0.0 x10^3/uL (0.0-0.2) Sodium Level 140 mmol/L (136-145) Potassium Level 5.4 mmol/L (3.5-5.1) Chloride Level 107 mmol/L (98-107) Carbon Dioxide Level 22 mmol/L (21-32) Anion Gap 11 (6-14) Blood Urea Nitrogen 76 mg/dL (8-26) Creatinine 5.7 mg/dL (0.7-1.3) Estimated GFR (Cockcroft-Gault) 9.6 Glucose Level 143 mg/dL (70-99) Calcium Level 7.9 mg/dL (8.5-10.1) Glucose (Fingerstick) 134 mg/dL (70-99) Assessment/Plan Assessment/Plan IMP CHERI WITH ANURIA AND CR OF 5.7 CKD STAGE 4 TO 5 WITH CR OF 3.5-4.0 AT BASELINE ATROPHIED LEFT KIDNEY RIGHT KIDNEY HYDRONEPHROSIS MILD HYPERKALEMIA BPH WITH URINARY RETENTION DM II HTN PLAN KAYEXALATE REPEAT SONOGRAM TODAY MAINTAIN LUGO IVF'S UROLOGY TO SEE PT MAY NEED CYSTO IF PROGRESSIVE RENAL FAILURE WILL PROB START HD ON MONDAY D/W JORGE CARTER MD February 11, 2017 10:55
[2017-02-11 11:00] VITALS: BP 125/66
[2017-02-11] MEDS ORDERED: SODIUM POLYSTYRENE SULFONATE 15 GM/60 ML ORAL.SUSP. PO ONE (11:00)
--- NOTE | 2017-02-11 11:07 | RAD ---
Indication: Right flank pain. Kerns catheter placement. Technique: Renal ultrasound was performed. Exam was technically difficult given body habitus. No comparison is available. Findings: Right kidney measures at least 11.8 cm in length and the left 7.7 cm. There is moderate right hydronephrosis. There is a simple right cyst measuring 18 mm. Bladder is decompressed by Kerns catheter. Impression: 1. Kerns catheter is in place. 2. Atrophic left kidney. 3. Moderate right hydronephrosis. 4. Simple cyst right kidney.
--- NOTE | 2017-02-11 11:12 | CONS ---
DATE OF CONSULTATION: 02/11/2017 CHIEF COMPLAINT: Acute right flank pain, urinary retention. HISTORY OF PRESENT ILLNESS: This is an 81-year-old male that presented to the Emergency Room with acute onset of right flank pain. He was also found to be in urinary retention and a Kerns catheter was placed in the Emergency Room and it is my understanding that the return of scott-colored urine, but the amount was not recorded in the chart. This patient has a history of chronic kidney disease. He is a patient of Dr. Ramirez. He has a history of a solitary right kidney and an atrophic left kidney. I am not sure what his baseline BUN and creatinine were. The patient underwent a CT scan while in the Emergency Room, which revealed moderate right-sided hydronephrosis and dilation of the proximal right ureter. No obvious stone was identified. The patient's admission creatinine was 4.2. His BUN is 69. The patient was admitted for pain control and evaluation. It should be mentioned that a CT scan, which demonstrated a distended urinary bladder and an enlarged prostate gland. PAST MEDICAL HISTORY: The patient has a history of chronic kidney disease and diabetes. ALLERGIES: THE PATIENT IS ALLERGIC TO PENICILLINS. PHYSICAL EXAMINATION: GENERAL DESCRIPTION: An 81-year-old male who is alert and oriented. He denies any pain or discomfort at this time. His nausea and emesis has completely subsided. ABDOMEN: Moderately obese. Negative for flank pain to palpation bilaterally. No palpable abdominal masses. No suprapubic tenderness. GENITALIA: The patient has indwelling Kerns catheter, which is now draining heme colored urine. I told that he has developed oliguria over the night. The catheter was irrigated. It was not obstructed. EXTREMITIES: Negative for cyanosis or edema. LABORATORY DATA: The patient's white blood cell count is 9.1. His hemoglobin is 12.1, hematocrit 36.6, platelet count is adequate. Chemistries on admission, the patient's creatinine was 4.2, his BUN was 69. This morning, his creatinine is 5.7 and his BUN 76, glucose 143, potassium is slightly elevated at ____. Urinalysis on admission, no evidence of bacteria, occasional white blood cells, 6-10 red blood cells, nitrite negative. X-RAY STUDIES: Noncontrast CT scan performed while the patient was in the Emergency Room, found to have the bladder was significantly distended. He had moderate right-sided hydronephrosis with moderate proximal hydroureter. The remaining ureter was not dilated below the level. Calculus was not identified. During ____ the patient developed gross hematuria and oliguria. IMPRESSION: 1. Acute on top of chronic kidney failure. 2. Urinary retention - previous history of transurethral resection of the prostate procedure. 3. Moderate right hydronephrosis. PLANS: 1. I have ordered a pelvic ultrasound to check the placement of Kerns catheter to make sure the Kerns balloon is within the bladder. 2. I have ordered a renal ultrasound. Follow up right hydronephrosis to see if he still has right hydronephrosis since he is no longer experiencing right flank pain. 3. The patient may need cystoscopy, right retrograde pyelogram and placement of right ureteral stent tomorrow if symptoms do not improve. NAPOLEON CORNELL DO DR: INES/weston JOB#: [id number] / [id number]
--- NOTE | 2017-02-11 12:55 | PDOC ---
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 Vitals Vitals Vital Signs Date Time Temp Pulse Resp B/P (MAP) Pulse Ox O2 Delivery O2 Flow Rate FiO2 02/11/17 11:00 98.3 69 18 125/66 (85) 95 Room Air 98.3 Physical Exam General: Alert, Oriented X3, Cooperative, No acute distress Heart: Regular rate, Normal S1, Normal S2 Lungs: Clear Abdomen: Normal bowel sounds, Soft, No tenderness, Other (LUGO) Extremities: No clubbing Skin: No rashes, No breakdown, No significant lesion Labs LABS Laboratory Tests Test 02/10/17 16:18 02/10/17 21:11 02/11/17 03:41 02/11/17 03:42 Glucose (Fingerstick) 134 mg/dL (70-99) 157 mg/dL (70-99) White Blood Count 9.1 x10^3/uL (4.0-11.0) Red Blood Count 4.19 x10^6/uL (4.30-5.70) Hemoglobin 12.2 g/dL (13.0-17.5) Hematocrit 36.6 % (39.0-53.0) Mean Corpuscular Volume 87 fL (79-100) Mean Corpuscular Hemoglobin 29 pg (25-35) Mean Corpuscular Hemoglobin Concent 33 g/dL (31-37) Red Cell Distribution Width 15.7 % (11.5-14.5) Platelet Count 172 x10^3/uL (140-400) Neutrophils (%) (Auto) 80 % (31-73) Lymphocytes (%) (Auto) 13 % (24-48) Monocytes (%) (Auto) 6 % (0-9) Eosinophils (%) (Auto) 0 % (0-3) Basophils (%) (Auto) 0 % (0-3) Neutrophils # (Auto) 7.3 x10^3uL (1.8-7.7) Lymphocytes # (Auto) 1.2 x10^3/uL (1.0-4.8) Monocytes # (Auto) 0.6 x10^3/uL (0.0-1.1) Eosinophils # (Auto) 0.0 x10^3/uL (0.0-0.7) Basophils # (Auto) 0.0 x10^3/uL (0.0-0.2) Sodium Level 140 mmol/L (136-145) Potassium Level 5.4 mmol/L (3.5-5.1) Chloride Level 107 mmol/L (98-107) Carbon Dioxide Level 22 mmol/L (21-32) Anion Gap 11 (6-14) Blood Urea Nitrogen 76 mg/dL (8-26) Creatinine 5.7 mg/dL (0.7-1.3) Estimated GFR (Cockcroft-Gault) 9.6 Glucose Level 143 mg/dL (70-99) Calcium Level 7.9 mg/dL (8.5-10.1) Test 02/11/17 07:20 02/11/17 11:01 Glucose (Fingerstick) 134 mg/dL (70-99) 148 mg/dL (70-99) Assessment and Plan Assessmemt and Plan Problems Medical Problems: (1) Hydronephrosis Status: Acute (2) Pyelonephritis Status: Acute (3) Renal failure Status: Acute Problems: Comment Review of Relevant I have reviewed the following items magaly (where applicable) has been applied. Labs Laboratory Tests Test 02/10/17 11:42 02/10/17 12:15 02/10/17 16:18 02/10/17 21:11 Urine Collection Type Unknown Urine Color Yellow Urine Clarity Clear Urine pH 6.0 Urine Specific [place] 1.010 Urine Protein 100 mg/dL (NEG-TRACE) Urine Glucose (UA) 500 mg/dL (NEG) Urine Ketones (Stick) Negative mg/dL (NEG) Urine Blood Small (NEG) Urine Nitrite Negative (NEG) Urine Bilirubin Negative (NEG) Urine Urobilinogen Dipstick 0.2 mg/dL (0.2 mg/dL) Urine Leukocyte Esterase Negative (NEG) Urine RBC 6-10 /HPF (0-2) Urine WBC Occ /HPF (0-4) Urine Squamous Epithelial Cells Occ /LPF Urine Bacteria 0 /HPF (0-FEW) Urine Mucus Slight /LPF White Blood Count 9.9 x10^3/uL (4.0-11.0) Red Blood Count 4.82 x10^6/uL (4.30-5.70) Hemoglobin 13.8 g/dL (13.0-17.5) Hematocrit 42.5 % (39.0-53.0) Mean Corpuscular Volume 88 fL (79-100) Mean Corpuscular Hemoglobin 29 pg (25-35) Mean Corpuscular Hemoglobin Concent 33 g/dL (31-37) Red Cell Distribution Width 15.6 % (11.5-14.5) Platelet Count 187 x10^3/uL (140-400) Neutrophils (%) (Auto) 80 % (31-73) Lymphocytes (%) (Auto) 13 % (24-48) Monocytes (%) (Auto) 7 % (0-9) Eosinophils (%) (Auto) 0 % (0-3) Basophils (%) (Auto) 1 % (0-3) Neutrophils # (Auto) 7.9 x10^3uL (1.8-7.7) Lymphocytes # (Auto) 1.3 x10^3/uL (1.0-4.8) Monocytes # (Auto) 0.7 x10^3/uL (0.0-1.1) Eosinophils # (Auto) 0.0 x10^3/uL (0.0-0.7) Basophils # (Auto) 0.1 x10^3/uL (0.0-0.2) Erythrocyte Sedimentation Rate 7 (0-15) Sodium Level 139 mmol/L (136-145) Potassium Level 4.8 mmol/L (3.5-5.1) Chloride Level 104 mmol/L (98-107) Carbon Dioxide Level 22 mmol/L (21-32) Anion Gap 13 (6-14) Blood Urea Nitrogen 69 mg/dL (8-26) Creatinine 4.2 mg/dL (0.7-1.3) Estimated GFR (Cockcroft-Gault) 13.7 Glucose Level 174 mg/dL (70-99) Hemoglobin A1c 7.6 % (4.8-5.6) Calcium Level 8.7 mg/dL (8.5-10.1) Glucose (Fingerstick) 134 mg/dL (70-99) 157 mg/dL (70-99) Test 02/11/17 03:41 02/11/17 03:42 02/11/17 07:20 02/11/17 11:01 White Blood Count 9.1 x10^3/uL (4.0-11.0) Red Blood Count 4.19 x10^6/uL (4.30-5.70) Hemoglobin 12.2 g/dL (13.0-17.5) Hematocrit 36.6 % (39.0-53.0) Mean Corpuscular Volume 87 fL (79-100) Mean Corpuscular Hemoglobin 29 pg (25-35) Mean Corpuscular Hemoglobin Concent 33 g/dL (31-37) Red Cell Distribution Width 15.7 % (11.5-14.5) Platelet Count 172 x10^3/uL (140-400) Neutrophils (%) (Auto) 80 % (31-73) Lymphocytes (%) (Auto) 13 % (24-48) Monocytes (%) (Auto) 6 % (0-9) Eosinophils (%) (Auto) 0 % (0-3) Basophils (%) (Auto) 0 % (0-3) Neutrophils # (Auto) 7.3 x10^3uL (1.8-7.7) Lymphocytes # (Auto) 1.2 x10^3/uL (1.0-4.8) Monocytes # (Auto) 0.6 x10^3/uL (0.0-1.1) Eosinophils # (Auto) 0.0 x10^3/uL (0.0-0.7) Basophils # (Auto) 0.0 x10^3/uL (0.0-0.2) Sodium Level 140 mmol/L (136-145) Potassium Level 5.4 mmol/L (3.5-5.1) Chloride Level 107 mmol/L (98-107) Carbon Dioxide Level 22 mmol/L (21-32) Anion Gap 11 (6-14) Blood Urea Nitrogen 76 mg/dL (8-26) Creatinine 5.7 mg/dL (0.7-1.3) Estimated GFR (Cockcroft-Gault) 9.6 Glucose Level 143 mg/dL (70-99) Calcium Level 7.9 mg/dL (8.5-10.1) Glucose (Fingerstick) 134 mg/dL (70-99) 148 mg/dL (70-99) Laboratory Tests Test 02/10/17 16:18 02/10/17 21:11 02/11/17 03:41 02/11/17 03:42 Glucose (Fingerstick) 134 mg/dL (70-99) 157 mg/dL (70-99) White Blood Count 9.1 x10^3/uL (4.0-11.0) Red Blood Count 4.19 x10^6/uL (4.30-5.70) Hemoglobin 12.2 g/dL (13.0-17.5) Hematocrit 36.6 % (39.0-53.0) Mean Corpuscular Volume 87 fL (79-100) Mean Corpuscular Hemoglobin 29 pg (25-35) Mean Corpuscular Hemoglobin Concent 33 g/dL (31-37) Red Cell Distribution Width 15.7 % (11.5-14.5) Platelet Count 172 x10^3/uL (140-400) Neutrophils (%) (Auto) 80 % (31-73) Lymphocytes (%) (Auto) 13 % (24-48) Monocytes (%) (Auto) 6 % (0-9) Eosinophils (%) (Auto) 0 % (0-3) Basophils (%) (Auto) 0 % (0-3) Neutrophils # (Auto) 7.3 x10^3uL (1.8-7.7) Lymphocytes # (Auto) 1.2 x10^3/uL (1.0-4.8) Monocytes # (Auto) 0.6 x10^3/uL (0.0-1.1) Eosinophils # (Auto) 0.0 x10^3/uL (0.0-0.7) Basophils # (Auto) 0.0 x10^3/uL (0.0-0.2) Sodium Level 140 mmol/L (136-145) Potassium Level 5.4 mmol/L (3.5-5.1) Chloride Level 107 mmol/L (98-107) Carbon Dioxide Level 22 mmol/L (21-32) Anion Gap 11 (6-14) Blood Urea Nitrogen 76 mg/dL (8-26) Creatinine 5.7 mg/dL (0.7-1.3) Estimated GFR (Cockcroft-Gault) 9.6 Glucose Level 143 mg/dL (70-99) Calcium Level 7.9 mg/dL (8.5-10.1) Test 02/11/17 07:20 02/11/17 11:01 Glucose (Fingerstick) 134 mg/dL (70-99) 148 mg/dL (70-99) Medications Current Medications Morphine Sulfate 4 mg 1X ONCE IV Last administered on 02/10/17 12:28; Start 02/10/17 at 12:15; Stop 02/10/17 at 12:16; Status DC Ondansetron HCl (Zofran) 4 mg 1X ONCE IV Last administered on 02/10/17 12:26 ; Start 02/10/17 at 12:15; Stop 02/10/17 at 12:16; Status DC Ceftriaxone Sodium 50 ml @ 100 mls/hr 1X ONCE IV Last administered on 13:33; Start 02/10/17 at 13:30; Stop 02/10/17 at 13:59; Status DC Ondansetron HCl (Zofran) 4 mg PRN Q8HRS PRN IV NAUSEA/VOMITING; Start 02/10/17 at 13:30; Stop 02/10/17 at 14:36; Status DC Morphine Sulfate 4 mg PRN Q2HR PRN IV PAIN Last administered on 02/10/17 17:26 ; Start 02/10/17 at 13:30; Stop 02/11/17 at 13:29 Sodium Chloride 1,000 ml @ 100 mls/hr Q10H IV Last administered on 02/11/17 09:17; Start 02/10/17 at 13:26; Stop 02/11/17 at 13:25 Lidocaine HCl (Glydo (Lidocaine) Jelly) 1 eduard 1X ONCE MM Last administered on 02/10/17 14:09; Start 02/10/17 at 13:45; Stop 02/10/17 at 13:46; Status DC Hydralazine HCl (Apresoline) 10 mg 1X ONCE IVP Last administered on 02/10/17 13:52; Start 02/10/17 at 13:45; Stop 02/10/17 at 13:46; Status DC Ondansetron HCl (Zofran) 4 mg PRN Q6HRS PRN IV NAUSEA/VOMITING Last administered on 02/10/17 21:29; Start 02/10/17 at 14:33; Stop 02/11/17 at 14:32 Hydralazine HCl (Apresoline) 10 mg PRN Q4HRS PRN IVP ELEVATED BP, SEE COMMENTS ; Start 02/10/17 at 14:45 Insulin Aspart (NovoLOG) 0-9 UNITS TIDWMEALS SQ ; Start 02/10/17 at 17:00 Dextrose (Dextrose 50%-Water Syringe) 12.5 gm PRN Q15MIN PRN IV SEE COMMENTS; Start 02/10/17 at 14:45 Acetaminophen (Tylenol) 650 mg PRN Q6HRS PRN PO fever Last administered on 02/10 21:27; Start 02/10/17 at 14:45 Heparin Sodium (Porcine) (Heparin Sq) 5,000 unit Q8HRS SQ Last administered on 02/11/17 06:29; Start 02/10/17 at 22:00 Aspirin (Ecotrin) 81 mg DAILYWBKFT PO Last administered on 02/11/17 08:11; Start 02/11/17 at 08:00 Insulin Detemir (Levemir) 20 units QHS SQ ; Start 02/10/17 at 21:00; Stop at 09:00; Status DC Atorvastatin Calcium (Lipitor) 10 mg QHS PO Last administered on 02/10/17 21: 04; Start 02/10/17 at 21:00 Pioglitazone HCl (Actos) 45 mg DAILY PO Last administered on 02/11/17 08:11; Start 02/11/17 at 09:00 Labetalol HCl (Normodyne) 20 mg PRN Q2HR PRN IVP HYPERTENSION, SEE COMMENTS; Start 02/10/17 at 14:45 Insulin Detemir (Levemir) 20 units DAILY08 SQ Last administered on 02/11/17 08 :23; Start 02/11/17 at 08:00 Sodium Chloride 500 ml @ 500 mls/hr 1X ONCE IV ; Start 02/11/17 at 04:45; Stop 02/11/17 at 05:44; Status DC Sodium Polystyrene Sulfonate (Kayexalate) 15 gm 1X ONCE PO Last administered on 02/11/17t 12:27; Start 02/11/17 at 11:00; Stop 02/11/17 at 11:01; Status DC Active Scripts Active Reported Aspir 81 (Aspirin) 81 Mg Tablet. 1 Tab PO DAILY Lantus Solostar (Insulin Glargine,Hum.rec.anlog) 100 Unit/1 Ml Insuln.pen 20 Unit SQ QHS Actos (Pioglitazone Hcl) 45 Mg Tablet 1 Tab PO DAILY Lovastatin 40 Mg Tablet 1 Tab PO DAILY Vitals/I & O Vital Sign - Last 24 Hours 02/10/17 02/10/17 02/10/17 02/10/17 13:52 13:52 13:55 14:25 Pulse 69 69 64 70 Resp 18 20 14 B/P (MAP) 236/118 (157) 236/118 176/81 (112) 133/62 (85) Pulse Ox 98 96 O2 Delivery Room Air Room Air Room Air 02/10/17 02/10/17 02/10/17 02/10/17 14:39 14:55 15:15 17:26 Pulse 68 Resp 18 B/P (MAP) 134/63 (86) 151/68 (95) Pulse Ox 97 O2 Delivery Room Air Room Air Room Air 02/10/17 02/10/17 02/10/17 02/11/17 18:25 19:17 23:29 03:30 Temp 98.1 98.0 97.7 98.1 98.0 97.7 Pulse 68 66 69 Resp 18 18 18 B/P (MAP) 156/78 (104) 151/77 (101) 141/70 (93) Pulse Ox 96 97 96 O2 Delivery Room Air Room Air Room Air Room Air 02/11/17 02/11/17 02/11/17 07:00 07:45 11:00 Temp 98.0 98.3 98.0 98.3 Pulse 61 69 Resp 18 18 B/P (MAP) 115/63 (80) 125/66 (85) Pulse Ox 94 95 O2 Delivery Room Air Room Air Room Air Intake and Output 02/10/17 02/10/17 02/11/17 15:00 23:00 07:00 Intake Total 50 ml 400 ml 2000 ml Output Total 1100 ml 835 ml Balance 50 ml -700 ml 1165 ml SHAKIR BHARDWAJ MD February 11, 2017 12:55
[2017-02-11 15:00] VITALS: BP 138/65
[2017-02-11 19:43] VITALS: BP 122/58
[2017-02-11] MEDS: ATORVASTATIN CALCIUM 10 MG TABLET. PO SCH (21:05)
[2017-02-11 23:19] VITALS: BP 133/68
[2017-02-12] VITALS (9 sets, daily range): BP systolic 142–166; BP diastolic 65–85
[2017-02-12] MEDS: ACETAMINOPHEN 325 MG TABLET. PO PRN (00:58)
[2017-02-12] MEDS: MORPHINE SULFATE 4 MG/ML DISP.SYRIN. IV PRN ×2 (01:41→18:25)
[2017-02-12 04:19] LABS: CALCIUM 7.4 mg/dL (8.5-10.1); GFR 9.1; POTASSIUM 4.3 mmol/L (3.5-5.1)
[2017-02-12] MEDS: HEPARIN PF for SUB-Q USE 5,000 UNIT/0.5 ML VIAL. SQ SCH ×3 (06:00→21:08)
[2017-02-12] MEDS: INSULIN ASPART 300 UNITS/3 ML INSULN.PEN SQ SCH ×3 (08:00→16:43)
[2017-02-12] MEDS: ASPIRIN ENTERIC COATED 81 MG TABLET.DR. PO SCH (08:00)
[2017-02-12] MEDS: INSULIN DETEMIR 300 UNITS/3 ML INSULN.PEN. SQ SCH (08:00)
[2017-02-12] MEDS: PIOGLITAZONE 15 MG TABLET. PO SCH (09:00)
[2017-02-12] MEDS ORDERED: PROCHLORPERAZINE 10 MG/2 ML VIAL. IV PRN (09:30)
[2017-02-12] MEDS ORDERED: MORPHINE SULFATE 2 MG/ML DISP.SYRIN. IV PRN (09:30)
[2017-02-12] MEDS ORDERED: ONDANSETRON PF 4 MG/2 ML VIAL. IV PRN (09:30)
[2017-02-12] MEDS ORDERED: IV NORMAL SALINE 1000ML BAG 1,000 ML IV SCH (09:30)
[2017-02-12] MEDS ORDERED: fentaNYL PF VIAL 100 MCG/2 ML VIAL IV PRN ×2 (09:30)
[2017-02-12] MEDS ORDERED: HYDROmorphone 2 MG/ML VIAL IV PRN (09:30)
--- NOTE | 2017-02-12 10:29 | PDOC ---
Provider Note Provider Note Urology: Discussed procedure, (Cystoscopy right ureteral stent placement) with patient and family, all of their questions were answered they appear to understand and agreeable. NAPOLEON CORNELL DO February 12, 2017 10:29
--- NOTE | 2017-02-12 10:34 | PDOC2 ---
UROLOGY CONSULT Date of Admission DATE: 02/12/17 TIME: 10:30 Reason for Consult: Renal failure, right hydronephrosis Problems: (1) Renal failure (2) Hydronephrosis HISTORY OF KIDNEY PROBLEMS: Yes Presented with acute right flank pain ROS ROS: RESPIRATORY: Shortness of breath denies. Cough denies. UROLOGY: Denies blood in urine. Denies difficulty urinating Current Medications Current Medications Morphine Sulfate 4 mg 1X ONCE IV Last administered on 02/10/17 12:28; Start 02/10/17 at 12:15; Stop 02/10/17 at 12:16; Status DC Ondansetron HCl (Zofran) 4 mg 1X ONCE IV Last administered on 02/10/17 12:26 ; Start 02/10/17 at 12:15; Stop 02/10/17 at 12:16; Status DC Ceftriaxone Sodium 50 ml @ 100 mls/hr 1X ONCE IV Last administered on 13:33; Start 02/10/17 at 13:30; Stop 02/10/17 at 13:59; Status DC Ondansetron HCl (Zofran) 4 mg PRN Q8HRS PRN IV NAUSEA/VOMITING; Start 02/10/17 at 13:30; Stop 02/10/17 at 14:36; Status DC Morphine Sulfate 4 mg PRN Q2HR PRN IV PAIN Last administered on 02/10/17 17:26 ; Start 02/10/17 at 13:30; Stop 02/11/17 at 13:29; Status DC Sodium Chloride 1,000 ml @ 100 mls/hr Q10H IV Last administered on 02/11/17 09:17; Start 02/10/17 at 13:26; Stop 02/11/17 at 13:25; Status DC Lidocaine HCl (Glydo (Lidocaine) Jelly) 1 eduard 1X ONCE MM Last administered on 02/10/17 14:09; Start 02/10/17 at 13:45; Stop 02/10/17 at 13:46; Status DC Hydralazine HCl (Apresoline) 10 mg 1X ONCE IVP Last administered on 02/10/17 13:52; Start 02/10/17 at 13:45; Stop 02/10/17 at 13:46; Status DC Ondansetron HCl (Zofran) 4 mg PRN Q6HRS PRN IV NAUSEA/VOMITING Last administered on 02/10/17 21:29; Start 02/10/17 at 14:33; Stop 02/11/17 at 14:32 ; Status DC Hydralazine HCl (Apresoline) 10 mg PRN Q4HRS PRN IVP ELEVATED BP, SEE COMMENTS ; Start 02/10/17 at 14:45 Insulin Aspart (NovoLOG) 0-9 UNITS TIDWMEALS SQ ; Start 02/10/17 at 17:00 Dextrose (Dextrose 50%-Water Syringe) 12.5 gm PRN Q15MIN PRN IV SEE COMMENTS; Start 02/10/17 at 14:45 Acetaminophen (Tylenol) 650 mg PRN Q6HRS PRN PO fever Last administered on 02/12 00:58; Start 02/10/17 at 14:45 Heparin Sodium (Porcine) (Heparin Sq) 5,000 unit Q8HRS SQ Last administered on 02/11/17 21:10; Start 02/10/17 at 22:00 Aspirin (Ecotrin) 81 mg DAILYWBKFT PO Last administered on 02/11/17 08:11; Start 02/11/17 at 08:00 Insulin Detemir (Levemir) 20 units QHS SQ ; Start 02/10/17 at 21:00; Stop at 09:00; Status DC Atorvastatin Calcium (Lipitor) 10 mg QHS PO Last administered on 02/11/17 21: 05; Start 02/10/17 at 21:00 Pioglitazone HCl (Actos) 45 mg DAILY PO Last administered on 02/11/17 08:11; Start 02/11/17 at 09:00 Labetalol HCl (Normodyne) 20 mg PRN Q2HR PRN IVP HYPERTENSION, SEE COMMENTS; Start 02/10/17 at 14:45 Insulin Detemir (Levemir) 20 units DAILY08 SQ Last administered on 02/11/17 08 :23; Start 02/11/17 at 08:00 Sodium Chloride 500 ml @ 500 mls/hr 1X ONCE IV ; Start 02/11/17 at 04:45; Stop 02/11/17 at 05:44; Status DC Sodium Polystyrene Sulfonate (Kayexalate) 15 gm 1X ONCE PO Last administered on 02/11/17 12:27; Start 02/11/17 at 11:00; Stop 02/11/17 at 11:01; Status DC Morphine Sulfate 4 mg PRN Q2HR PRN IV PAIN Last administered on 02/12/17 01:41 ; Start 02/12/17 at 01:45 Ondansetron HCl (Zofran) 4 mg PRN Q6HRS PRN IV NAUSEA/VOMITING; Start 02/12/17 at 09:30; Stop 02/13/17 at 09:29 Fentanyl Citrate (Fentanyl 2ml Vial) 25 mcg PRN Q5MIN PRN IV MILD PAIN; Start 02/12/17 at 09:30; Stop 02/13/17 at 09:29 Fentanyl Citrate (Fentanyl 2ml Vial) 50 mcg PRN Q5MIN PRN IV MODERATE PAIN; Start 02/12/17 at 09:30; Stop 02/13/17 at 09:29 Morphine Sulfate 1 mg PRN Q10MIN PRN IV SEVERE PAIN; Start 02/12/17 at 09:30; Stop 02/13/17 at 09:29 Hydromorphone HCl (Dilaudid) 0.5 mg PRN Q10MIN PRN IV SEV PAIN, Second choice; Start 02/12/17 at 09:30; Stop 02/13/17 at 09:29 Prochlorperazine Edisylate (Compazine) 5 mg PACU PRN PRN IV NAUSEA, MRX1; Start 02/12/17 at 09:30; Stop 02/13/17 at 09:29 Sodium Chloride 1,000 ml @ 0 mls/hr Q0M IV ; Start 02/12/17 at 09:30 Active Scripts Active Reported Aspir 81 (Aspirin) 81 Mg Tablet.dr 1 Tab PO DAILY Lantus Solostar (Insulin Glargine,Hum.rec.anlog) 100 Unit/1 Ml Insuln.pen 20 Unit SQ QHS Actos (Pioglitazone Hcl) 45 Mg Tablet 1 Tab PO DAILY Lovastatin 40 Mg Tablet 1 Tab PO DAILY Allergies: Coded Allergies: Penicillins (Verified Allergy, Intermediate, Hives, 02/10/17) Physical Examination PHYSICAL EXAMINATION: GENERAL: Gen. appearance: No acute distress. Mood/affect: Pleasant. HEENT: Head: Normocephalic, atraumatic. Airway Impairment: No. CHEST: Shape and expansion: Normal. Expansion: Normal. SKIN: General: Warm. Color: Good. GENITOURINARY:External genitalia - wnl. NEUROLOGICAL: Mental status: Alert and oriented 3. Language: Normal. Right flank pain during the night VITALS Vital Signs Date Time Temp Pulse Resp B/P (MAP) Pulse Ox O2 Delivery O2 Flow Rate FiO2 02/12/17 07:00 98.0 67 16 163/68 (99) 93 Room Air 98.0 Labs Laboratory Tests Test 02/10/17 11:42 02/10/17 12:15 02/10/17 16:18 02/10/17 21:11 Urine Collection Type Unknown Urine Color Yellow Urine Clarity Clear Urine pH 6.0 Urine Specific [place] 1.010 Urine Protein 100 mg/dL (NEG-TRACE) Urine Glucose (UA) 500 mg/dL (NEG) Urine Ketones (Stick) Negative mg/dL (NEG) Urine Blood Small (NEG) Urine Nitrite Negative (NEG) Urine Bilirubin Negative (NEG) Urine Urobilinogen Dipstick 0.2 mg/dL (0.2 mg/dL) Urine Leukocyte Esterase Negative (NEG) Urine RBC 6-10 /HPF (0-2) Urine WBC Occ /HPF (0-4) Urine Squamous Epithelial Cells Occ /LPF Urine Bacteria 0 /HPF (0-FEW) Urine Mucus Slight /LPF White Blood Count 9.9 x10^3/uL (4.0-11.0) Red Blood Count 4.82 x10^6/uL (4.30-5.70) Hemoglobin 13.8 g/dL (13.0-17.5) Hematocrit 42.5 % (39.0-53.0) Mean Corpuscular Volume 88 fL (79-100) Mean Corpuscular Hemoglobin 29 pg (25-35) Mean Corpuscular Hemoglobin Concent 33 g/dL (31-37) Red Cell Distribution Width 15.6 % (11.5-14.5) Platelet Count 187 x10^3/uL (140-400) Neutrophils (%) (Auto) 80 % (31-73) Lymphocytes (%) (Auto) 13 % (24-48) Monocytes (%) (Auto) 7 % (0-9) Eosinophils (%) (Auto) 0 % (0-3) Basophils (%) (Auto) 1 % (0-3) Neutrophils # (Auto) 7.9 x10^3uL (1.8-7.7) Lymphocytes # (Auto) 1.3 x10^3/uL (1.0-4.8) Monocytes # (Auto) 0.7 x10^3/uL (0.0-1.1) Eosinophils # (Auto) 0.0 x10^3/uL (0.0-0.7) Basophils # (Auto) 0.1 x10^3/uL (0.0-0.2) Erythrocyte Sedimentation Rate 7 (0-15) Sodium Level 139 mmol/L (136-145) Potassium Level 4.8 mmol/L (3.5-5.1) Chloride Level 104 mmol/L (98-107) Carbon Dioxide Level 22 mmol/L (21-32) Anion Gap 13 (6-14) Blood Urea Nitrogen 69 mg/dL (8-26) Creatinine 4.2 mg/dL (0.7-1.3) Estimated GFR (Cockcroft-Gault) 13.7 Glucose Level 174 mg/dL (70-99) Hemoglobin A1c 7.6 % (4.8-5.6) Calcium Level 8.7 mg/dL (8.5-10.1) Glucose (Fingerstick) 134 mg/dL (70-99) 157 mg/dL (70-99) Test 02/11/17 03:41 02/11/17 03:42 02/11/17 07:20 02/11/17 11:01 White Blood Count 9.1 x10^3/uL (4.0-11.0) Red Blood Count 4.19 x10^6/uL (4.30-5.70) Hemoglobin 12.2 g/dL (13.0-17.5) Hematocrit 36.6 % (39.0-53.0) Mean Corpuscular Volume 87 fL (79-100) Mean Corpuscular Hemoglobin 29 pg (25-35) Mean Corpuscular Hemoglobin Concent 33 g/dL (31-37) Red Cell Distribution Width 15.7 % (11.5-14.5) Platelet Count 172 x10^3/uL (140-400) Neutrophils (%) (Auto) 80 % (31-73) Lymphocytes (%) (Auto) 13 % (24-48) Monocytes (%) (Auto) 6 % (0-9) Eosinophils (%) (Auto) 0 % (0-3) Basophils (%) (Auto) 0 % (0-3) Neutrophils # (Auto) 7.3 x10^3uL (1.8-7.7) Lymphocytes # (Auto) 1.2 x10^3/uL (1.0-4.8) Monocytes # (Auto) 0.6 x10^3/uL (0.0-1.1) Eosinophils # (Auto) 0.0 x10^3/uL (0.0-0.7) Basophils # (Auto) 0.0 x10^3/uL (0.0-0.2) Sodium Level 140 mmol/L (136-145) Potassium Level 5.4 mmol/L (3.5-5.1) Chloride Level 107 mmol/L (98-107) Carbon Dioxide Level 22 mmol/L (21-32) Anion Gap 11 (6-14) Blood Urea Nitrogen 76 mg/dL (8-26) Creatinine 5.7 mg/dL (0.7-1.3) Estimated GFR (Cockcroft-Gault) 9.6 Glucose Level 143 mg/dL (70-99) Calcium Level 7.9 mg/dL (8.5-10.1) Glucose (Fingerstick) 134 mg/dL (70-99) 148 mg/dL (70-99) Test 02/11/17 16:16 02/11/17 20:45 02/12/17 03:42 02/12/17 07:43 Glucose (Fingerstick) 134 mg/dL (70-99) 135 mg/dL (70-99) 77 mg/dL (70-99) Sodium Level 138 mmol/L (136-145) Potassium Level 4.3 mmol/L (3.5-5.1) Chloride Level 106 mmol/L (98-107) Carbon Dioxide Level 21 mmol/L (21-32) Anion Gap 11 (6-14) Blood Urea Nitrogen 79 mg/dL (8-26) Creatinine 6.0 mg/dL (0.7-1.3) Estimated GFR (Cockcroft-Gault) 9.1 Glucose Level 82 mg/dL (70-99) Calcium Level 7.4 mg/dL (8.5-10.1) Laboratory Tests Test 02/11/17 11:01 02/11/17 16:16 02/11/17 20:45 02/12/17 03:42 Glucose (Fingerstick) 148 mg/dL (70-99) 134 mg/dL (70-99) 135 mg/dL (70-99) Sodium Level 138 mmol/L (136-145) Potassium Level 4.3 mmol/L (3.5-5.1) Chloride Level 106 mmol/L (98-107) Carbon Dioxide Level 21 mmol/L (21-32) Anion Gap 11 (6-14) Blood Urea Nitrogen 79 mg/dL (8-26) Creatinine 6.0 mg/dL (0.7-1.3) Estimated GFR (Cockcroft-Gault) 9.1 Glucose Level 82 mg/dL (70-99) Calcium Level 7.4 mg/dL (8.5-10.1) Test 02/12/17 07:43 Glucose (Fingerstick) 77 mg/dL (70-99) Images CT-scan reviewed Assessment/Plan Plan: Cystoscopy right retrograde, placement of right ureteral stent discussed with family and patient, all questions answered they appear to understand and agreeable Problem Qualifiers (1) Hydronephrosis: Hydronephrosis type: unspecified Qualified Codes: N13.30 - Unspecified hydronephrosis NAPOLEON CORNELL DO February 12, 2017 10:34
--- NOTE | 2017-02-12 11:13 | PDOC ---
Renal-Progress Notes Subjective Notes Notes NO COMPLAINTS History of Present Illness Hx of present illness STABLE Vitals Vitals Vital Signs Date Time Temp Pulse Resp B/P (MAP) Pulse Ox O2 Delivery O2 Flow Rate FiO2 02/12/17 10:42 97.5 71 14 188/84 96 Room Air 97.5 Weight Weight [ ] I.O. Intake and Output Intake and Output 02/12/17 07:00 Intake Total 1060 ml Output Total 1425 ml Balance -365 ml IV Total 1060 ml Output Urine Total 1425 ml Labs Labs Laboratory Tests Test 02/11/17 16:16 02/11/17 20:45 02/12/17 03:42 02/12/17 07:43 Glucose (Fingerstick) 134 mg/dL (70-99) 135 mg/dL (70-99) 77 mg/dL (70-99) Sodium Level 138 mmol/L (136-145) Potassium Level 4.3 mmol/L (3.5-5.1) Chloride Level 106 mmol/L (98-107) Carbon Dioxide Level 21 mmol/L (21-32) Anion Gap 11 (6-14) Blood Urea Nitrogen 79 mg/dL (8-26) Creatinine 6.0 mg/dL (0.7-1.3) Estimated GFR (Cockcroft-Gault) 9.1 Glucose Level 82 mg/dL (70-99) Calcium Level 7.4 mg/dL (8.5-10.1) Micro Micro Microbiology 02/10/17 Urine Culture - Final, Complete 02/10/17 Urine Culture Result 1 (MANGO) - Final, Complete Review of Systems Constitutional: yes: alert, oriented Ears/Nose/Throat: Yes: no symptom reported Eyes: Yes: no symptom reported Pulmonary: Yes no symptom reported Cardiovascular: Yes no symptom reported Gastrointestional: Yes: no symptom reported Genitourinary: Yes: no symptom reported Musculoskeletal: Yes: no symptom reported Psychiatric/Neurological: Yes: no symptom reported Endocrine: Yes: no symptom reported Hematologic/Lymphatic: Yes: no symptom reported Physical Exam General Appearance: no apparent distress Skin: warm Respiratory: bilateral CTA Heart: S1S2 Abdomen: soft Extremities: pulses present Neurology: alert, oriented Assessment Assessment IMP CHERI WITH CR UP TO 6.0 CKD STAGE 4-5 WITH CR 3.5-4.0 ATROPHIED LEFT KIDNEY RIGHT URETERAL OBSTRUCTION WITH RIGHT HYDRONEPHROSIS HYPERKALEMIA-RESOLVED PLAN CONT IVF'S CYSTO AND STENT TODAY D/W UROLOGY MAY NEED DIALYSIS IF CLEARANCE DOES NOT GET BETTER WITH DECOMPRESSION OF HYDRO JORGE CERON MD February 12, 2017 11:13
[2017-02-12] MEDS: IV NORMAL SALINE 1000ML BAG 1,000 ML IV SCH (11:15)
[2017-02-12] MEDS ORDERED: IOHEXOL 300 MG/ML 50 ML VIAL. ONE (11:19)
[2017-02-12] MEDS ORDERED: LIDOCAINE 2% PF Vial for OR 5 ML VIAL. ONE (11:20)
[2017-02-12] MEDS ORDERED: ONDANSETRON PF 4 MG/2 ML VIAL. ONE (11:20)
[2017-02-12] MEDS ORDERED: PROPOFOL 20 ML IV ONE (11:20)
[2017-02-12] MEDS ORDERED: DEXAMETHASONE SOD PHOS 20 MG/5 ML VIAL. ONE (11:20)
[2017-02-12] MEDS ORDERED: CIPROFLOXACIN 400MG PREMIX 200 ML IV ONE (11:30)
[2017-02-12] MEDS ORDERED: ePHEDrine PF IN SALINE 50 MG/5 ML DISP.SYRIN IV ONE (11:52)
--- NOTE | 2017-02-12 12:27 | PDOC ---
BRIEF OPERATIVE NOTE Date: February 12, 2017 Pre-Op Diagnosis Right hydronephrosis, ARF, Flank pain Post-Op Diagnosis Same plus distal right ureteral calculus at UVJ Procedure Performed Cystoscopy right retrograde, placement of ureteral stent (4.8Fr by 24cm) Surgeon Del Anesthesia Type: General Specimens Obtained None Findings calculus distal right ureter with high-grade obstruction Complications None Additional Remarks patient will need ureteroscopy holmium laser lithotripsy in future as outpatient NAPOLEON CORNELL DO February 12, 2017 12:27
[2017-02-12] MEDS ORDERED: SEVOFLURANE 31 TO 60 MINUTES. IH ONE (12:29)
[2017-02-12] MEDS: hydrALAZINE 20 MG/ML VIAL. IVP PRN (12:45)
--- NOTE | 2017-02-12 13:12 | PDOC ---
PROGRESS NOTES Chief Complaint Chief Complaint CC: decreased urine out put A/P CHERI WITH ANURIA : worsening. 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 Vitals Vitals Vital Signs Date Time Temp Pulse Resp B/P (MAP) Pulse Ox O2 Delivery O2 Flow Rate FiO2 02/12/17 12:45 82 181/82 02/12/17 12:44 98.3 16 93 Room Air 98.3 Physical Exam General: Alert, Oriented X3, Cooperative, No acute distress Heart: Regular rate, Normal S1, Normal S2 Lungs: Clear Abdomen: Normal bowel sounds, Soft, No tenderness, Other (LUGO) Extremities: No clubbing Skin: No rashes, No breakdown, No significant lesion Labs LABS Laboratory Tests Test 02/11/17 16:16 02/11/17 20:45 02/12/17 03:42 02/12/17 07:43 Glucose (Fingerstick) 134 mg/dL (70-99) 135 mg/dL (70-99) 77 mg/dL (70-99) Sodium Level 138 mmol/L (136-145) Potassium Level 4.3 mmol/L (3.5-5.1) Chloride Level 106 mmol/L (98-107) Carbon Dioxide Level 21 mmol/L (21-32) Anion Gap 11 (6-14) Blood Urea Nitrogen 79 mg/dL (8-26) Creatinine 6.0 mg/dL (0.7-1.3) Estimated GFR (Cockcroft-Gault) 9.1 Glucose Level 82 mg/dL (70-99) Calcium Level 7.4 mg/dL (8.5-10.1) Test 02/12/17 12:21 Glucose (Fingerstick) 114 mg/dL (70-99) Assessment and Plan Assessmemt and Plan Problems Medical Problems: (1) Hydronephrosis Status: Acute (2) Pyelonephritis Status: Acute (3) Renal failure Status: Acute Problems: Comment Review of Relevant I have reviewed the following items magaly (where applicable) has been applied. Labs Laboratory Tests Test 02/10/17 16:18 02/10/17 21:11 02/11/17 03:41 02/11/17 03:42 Glucose (Fingerstick) 134 mg/dL (70-99) 157 mg/dL (70-99) White Blood Count 9.1 x10^3/uL (4.0-11.0) Red Blood Count 4.19 x10^6/uL (4.30-5.70) Hemoglobin 12.2 g/dL (13.0-17.5) Hematocrit 36.6 % (39.0-53.0) Mean Corpuscular Volume 87 fL (79-100) Mean Corpuscular Hemoglobin 29 pg (25-35) Mean Corpuscular Hemoglobin Concent 33 g/dL (31-37) Red Cell Distribution Width 15.7 % (11.5-14.5) Platelet Count 172 x10^3/uL (140-400) Neutrophils (%) (Auto) 80 % (31-73) Lymphocytes (%) (Auto) 13 % (24-48) Monocytes (%) (Auto) 6 % (0-9) Eosinophils (%) (Auto) 0 % (0-3) Basophils (%) (Auto) 0 % (0-3) Neutrophils # (Auto) 7.3 x10^3uL (1.8-7.7) Lymphocytes # (Auto) 1.2 x10^3/uL (1.0-4.8) Monocytes # (Auto) 0.6 x10^3/uL (0.0-1.1) Eosinophils # (Auto) 0.0 x10^3/uL (0.0-0.7) Basophils # (Auto) 0.0 x10^3/uL (0.0-0.2) Sodium Level 140 mmol/L (136-145) Potassium Level 5.4 mmol/L (3.5-5.1) Chloride Level 107 mmol/L (98-107) Carbon Dioxide Level 22 mmol/L (21-32) Anion Gap 11 (6-14) Blood Urea Nitrogen 76 mg/dL (8-26) Creatinine 5.7 mg/dL (0.7-1.3) Estimated GFR (Cockcroft-Gault) 9.6 Glucose Level 143 mg/dL (70-99) Calcium Level 7.9 mg/dL (8.5-10.1) Test 02/11/17 07:20 02/11/17 11:01 02/11/17 16:16 02/11/17 20:45 Glucose (Fingerstick) 134 mg/dL (70-99) 148 mg/dL (70-99) 134 mg/dL (70-99) 135 mg/dL (70-99) Test 02/12/17 03:42 02/12/17 07:43 02/12/17 12:21 Sodium Level 138 mmol/L (136-145) Potassium Level 4.3 mmol/L (3.5-5.1) Chloride Level 106 mmol/L (98-107) Carbon Dioxide Level 21 mmol/L (21-32) Anion Gap 11 (6-14) Blood Urea Nitrogen 79 mg/dL (8-26) Creatinine 6.0 mg/dL (0.7-1.3) Estimated GFR (Cockcroft-Gault) 9.1 Glucose Level 82 mg/dL (70-99) Calcium Level 7.4 mg/dL (8.5-10.1) Glucose (Fingerstick) 77 mg/dL (70-99) 114 mg/dL (70-99) Laboratory Tests Test 02/11/17 16:16 02/11/17 20:45 02/12/17 03:42 02/12/17 07:43 Glucose (Fingerstick) 134 mg/dL (70-99) 135 mg/dL (70-99) 77 mg/dL (70-99) Sodium Level 138 mmol/L (136-145) Potassium Level 4.3 mmol/L (3.5-5.1) Chloride Level 106 mmol/L (98-107) Carbon Dioxide Level 21 mmol/L (21-32) Anion Gap 11 (6-14) Blood Urea Nitrogen 79 mg/dL (8-26) Creatinine 6.0 mg/dL (0.7-1.3) Estimated GFR (Cockcroft-Gault) 9.1 Glucose Level 82 mg/dL (70-99) Calcium Level 7.4 mg/dL (8.5-10.1) Test 02/12/17 12:21 Glucose (Fingerstick) 114 mg/dL (70-99) Microbiology 02/10/17 Urine Culture - Final, Complete 02/10/17 Urine Culture Result 1 (MANGO) - Final, Complete Medications Current Medications Morphine Sulfate 4 mg 1X ONCE IV Last administered on 02/10/17 12:28; Start 02/10/17 at 12:15; Stop 02/10/17 at 12:16; Status DC Ondansetron HCl (Zofran) 4 mg 1X ONCE IV Last administered on 02/10/17 12:26 ; Start 02/10/17 at 12:15; Stop 02/10/17 at 12:16; Status DC Ceftriaxone Sodium 50 ml @ 100 mls/hr 1X ONCE IV Last administered on 13:33; Start 02/10/17 at 13:30; Stop 02/10/17 at 13:59; Status DC Ondansetron HCl (Zofran) 4 mg PRN Q8HRS PRN IV NAUSEA/VOMITING; Start 02/10/17 at 13:30; Stop 02/10/17 at 14:36; Status DC Morphine Sulfate 4 mg PRN Q2HR PRN IV PAIN Last administered on 02/10/17 17:26 ; Start 02/10/17 at 13:30; Stop 02/11/17 at 13:29; Status DC Sodium Chloride 1,000 ml @ 100 mls/hr Q10H IV Last administered on 02/11/17 09:17; Start 02/10/17 at 13:26; Stop 02/11/17 at 13:25; Status DC Lidocaine HCl (Glydo (Lidocaine) Jelly) 1 eduard 1X ONCE MM Last administered on 02/10/17 14:09; Start 02/10/17 at 13:45; Stop 02/10/17 at 13:46; Status DC Hydralazine HCl (Apresoline) 10 mg 1X ONCE IVP Last administered on 02/10/17 13:52; Start 02/10/17 at 13:45; Stop 02/10/17 at 13:46; Status DC Ondansetron HCl (Zofran) 4 mg PRN Q6HRS PRN IV NAUSEA/VOMITING Last administered on 02/10/17 21:29; Start 02/10/17 at 14:33; Stop 02/11/17 at 14:32 ; Status DC Hydralazine HCl (Apresoline) 10 mg PRN Q4HRS PRN IVP ELEVATED BP, SEE COMMENTS Last administered on 02/12/17 12:45; Start 02/10/17 at 14:45 Insulin Aspart (NovoLOG) 0-9 UNITS TIDWMEALS SQ ; Start 02/10/17 at 17:00 Dextrose (Dextrose 50%-Water Syringe) 12.5 gm PRN Q15MIN PRN IV SEE COMMENTS; Start 02/10/17 at 14:45 Acetaminophen (Tylenol) 650 mg PRN Q6HRS PRN PO fever Last administered on 02/12 00:58; Start 02/10/17 at 14:45 Heparin Sodium (Porcine) (Heparin Sq) 5,000 unit Q8HRS SQ Last administered on 02/11/17 21:10; Start 02/10/17 at 22:00 Aspirin (Ecotrin) 81 mg [id number] PO Last administered on 02/11/17 08:11; Start 02/11/17 at 08:00 Insulin Detemir (Levemir) 20 units QHS SQ ; Start 02/10/17 at 21:00; Stop at 09:00; Status DC Atorvastatin Calcium (Lipitor) 10 mg QHS PO Last administered on 02/11/17 21: 05; Start 02/10/17 at 21:00 Pioglitazone HCl (Actos) 45 mg DAILY PO Last administered on 02/11/17 08:11; Start 02/11/17 at 09:00 Labetalol HCl (Normodyne) 20 mg PRN Q2HR PRN IVP HYPERTENSION, SEE COMMENTS; Start 02/10/17 at 14:45 Insulin Detemir (Levemir) 20 units DAILY08 SQ Last administered on 02/11/17 08 :23; Start 02/11/17 at 08:00 Sodium Chloride 500 ml @ 500 mls/hr 1X ONCE IV ; Start 02/11/17 at 04:45; Stop 02/11/17 at 05:44; Status DC Sodium Polystyrene Sulfonate (Kayexalate) 15 gm 1X ONCE PO Last administered on 02/11/17 12:27; Start 02/11/17 at 11:00; Stop 02/11/17 at 11:01; Status DC Morphine Sulfate 4 mg PRN Q2HR PRN IV PAIN Last administered on 5/21/17at 01:41 ; Start 02/12/17 at 01:45 Ondansetron HCl (Zofran) 4 mg PRN Q6HRS PRN IV NAUSEA/VOMITING; Start 02/12/17 at 09:30; Stop 02/13/17 at 09:29 Fentanyl Citrate (Fentanyl 2ml Vial) 25 mcg PRN Q5MIN PRN IV MILD PAIN; Start 02/12/17 at 09:30; Stop 02/13/17 at 09:29 Fentanyl Citrate (Fentanyl 2ml Vial) 50 mcg PRN Q5MIN PRN IV MODERATE PAIN; Start 02/12/17 at 09:30; Stop 02/13/17 at 09:29 Morphine Sulfate 1 mg PRN Q10MIN PRN IV SEVERE PAIN; Start 02/12/17 at 09:30; Stop 02/13/17 at 09:29 Hydromorphone HCl (Dilaudid) 0.5 mg PRN Q10MIN PRN IV SEV PAIN, Second choice; Start 02/12/17 at 09:30; Stop 02/13/17 at 09:29 Prochlorperazine Edisylate (Compazine) 5 mg PACU PRN PRN IV NAUSEA, MRX1; Start 02/12/17 at 09:30; Stop 02/13/17 at 09:29 Sodium Chloride 1,000 ml @ 0 mls/hr Q0M IV ; Start 02/12/17 at 09:30 Sodium Chloride 1,000 ml @ 75 mls/hr [id number] IV ; Start 02/12/17 at 11:15 Iohexol (Omnipaque 300 Mg/ml) 50 ml STK-MED ONCE .ROUTE Last administered on t 11:51; Start 02/12/17 at 11:19; Stop 02/12/17 at 11:20; Status DC Dexamethasone Sodium Phosphate (Decadron) 20 mg STK-MED ONCE .ROUTE ; Start at 11:20; Stop 02/12/17 at 11:21; Status DC Lidocaine HCl (Lidocaine Pf 2% Vial) 5 ml STK-MED ONCE .ROUTE ; Start 02/12/17 at 11:20; Stop 02/12/17 at 11:21; Status DC Ondansetron HCl (Zofran) 4 mg STK-MED ONCE .ROUTE ; Start 02/12/17 at 11:20; Stop 02/12/17 at 11:21; Status DC Propofol 20 ml @ As Directed STK-MED ONCE IV ; Start 02/12/17 at 11:20; Stop at 11:21; Status DC Ciprofloxacin Lactate 200 ml @ 200 mls/hr 1X PREOP ONCE IV Last administered on 02/12/17t 11:34; Start 02/12/17 at 11:30; Stop 02/12/17 at 12:29; Status DC Ephedrine Sulfate 50 mg STK-MED ONCE IV ; Start 02/12/17 at 11:52; Stop at 11:53; Status DC Sevoflurane (Ultane) 30 ml STK-MED ONCE IH ; Start 02/12/17 at 12:29; Stop 02/12 at 12:30; Status DC Active Scripts Active Reported Aspir 81 (Aspirin) 81 Mg Tablet. 1 Tab PO DAILY Lantus Solostar (Insulin Glargine,Hum.rec.anlog) 100 Unit/1 Ml Insuln.pen 20 Unit SQ QHS Actos (Pioglitazone Hcl) 45 Mg Tablet 1 Tab PO DAILY Lovastatin 40 Mg Tablet 1 Tab PO DAILY Vitals/I & O Vital Sign - Last 24 Hours 02/11/17 02/11/17 02/11/17 02/11/17 15:00 19:43 20:00 21:14 Temp 97.7 98.5 97.7 98.5 Pulse 63 68 Resp 18 18 B/P (MAP) 138/65 (89) 122/58 (79) Pulse Ox 96 93 O2 Delivery Room Air Room Air Room Air Room Air 02/11/17 02/12/17 02/12/17 02/12/17 23:19 03:22 07:00 08:15 Temp 97.7 97.7 98.0 97.7 97.7 98.0 Pulse 60 64 67 Resp 18 18 16 B/P (MAP) 133/68 (89) 151/65 (93) 163/68 (99) Pulse Ox 97 95 93 O2 Delivery Room Air Room Air Room Air Room Air 02/12/17 02/12/17 02/12/17 02/12/17 10:42 12:14 12:29 12:42 Temp 97.5 99.5 97.5 99.5 Pulse 71 91 87 Resp 14 14 16 B/P (MAP) 188/84 174/81 181/82 Pulse Ox 96 99 95 O2 Delivery Room Air Simple Mask Room Air Room Air 02/12/17 02/12/17 12:44 12:45 Temp 98.3 98.3 Pulse 87 82 Resp 16 B/P (MAP) 174/93 181/82 Pulse Ox 93 O2 Delivery Room Air Intake and Output 02/11/17 02/11/17 02/12/17 15:00 23:00 07:00 Intake Total 1060 ml Output Total 500 ml 925 ml Balance 560 ml -925 ml SHAKIR BHARDWAJ MD February 12, 2017 13:12
[2017-02-12] MEDS: METOPROLOL TART IMMED RELEASE 25 MG TABLET. PO SCH ×2 (14:33→21:02)
--- NOTE | 2017-02-12 15:48 | OP ---
DATE OF SURGERY: 02/12/2017 PREOPERATIVE DIAGNOSES: Right flank pain, right hydronephrosis, and acute renal failure. POSTOPERATIVE DIAGNOSES: Right flank pain, right hydronephrosis, acute renal failure, and distal right ureteral calculus. PROCEDURE: Cystoscopy, right retrograde pyelogram, placement of indwelling right ureteral stent (4.8 Palestinian x 24 cm). SURGEON: Napoleon Cornell DO ANESTHESIA: General. INDICATIONS AND JUDGMENT: This is an 81-year-old male admitted to the hospital with acute right flank pain. CT scan without contrast revealed moderate right hydronephrosis and what appeared to be obstruction of the right kidney. However, the definite stone was not identified at that time. The patient continued to have right flank pain. His creatinine continued to elevated; therefore, it was felt that he would benefit from cystoscopy, retrograde pyelogram, and stent placement. The procedure was explained to the patient and his family. They appeared to understand and were agreeable. DESCRIPTION OF PROCEDURE: The patient was preloaded with 400 mg of IV Cipro. He was taken to the operating room and placed on the operating room table in the supine position. He was given a general anesthetic and then placed in a dorsal lithotomy position using Watson stirrups hence we do not have a cystoscopy table. A C-arm was moved into position. Rigid cystoscopy was performed. The prostate was enlarged, felt to be about 25 g. Scope was advanced into the bladder. The bladder was examined. There was no evidence of calculi within the bladder. The right ureteral orifice was identified. It was cannulated with an 8-Palestinian cone tip ureteral catheter. Contrast was injected. There appeared to be a large stone at the ureterovesical junction with high-grade obstruction and dilated right ureter. I then with some difficulty advanced a 0.035 Glidewire past the obstruction at the ureterovesical angle and was able to advance the wire up into the renal pelvis. Following that, a 4.8 Palestinian x 24 cm double-J ureteral stent was advanced over the Glidewire under fluoroscopy, past the obstructing stone and up into the renal pelvis. Positioning appeared to be satisfactory, therefore, the wire was removed. Fluoroscopy revealed that this large calculus did not have much calcium and it was not very radiopaque. The instruments were removed. The patient tolerated the procedure well. I did not replace his Kerns catheter at the conclusion of the case. He was sent to recovery room in satisfactory condition. Plans will be to allow the patient's renal function to improve to his baseline. We will bring him back as an outpatient for ureteroscopy, holmium laser lithotripsy stone extraction. NAPOLEON CORNELL DO DR: INES/weston JOB#: [id number] / [id number]
[2017-02-12] MEDS ORDERED: LIDOCAINE 2% JELLY 6ML IN APPLICATOR. MM ONE (18:15)
[2017-02-12] MEDS: ATORVASTATIN CALCIUM 10 MG TABLET. PO SCH (21:01)
[2017-02-12] MEDS ORDERED: INSULIN ASPART 300 UNITS/3 ML INSULN.PEN SQ ONE (21:15)
[2017-02-13] MEDS: IV NORMAL SALINE 1000ML BAG 1,000 ML IV SCH ×3 (00:40→22:53)
[2017-02-13 03:19] VITALS: BP 140/63
[2017-02-13] MEDS: HEPARIN PF for SUB-Q USE 5,000 UNIT/0.5 ML VIAL. SQ SCH ×3 (05:11→21:33)
[2017-02-13 06:13] LABS: CALCIUM 7.6 mg/dL (8.5-10.1); CREATININE 5.9 mg/dL (0.7-1.3); GFR 9.2; POTASSIUM 5.2 mmol/L (3.5-5.1)
[2017-02-13 07:00] VITALS: BP 164/78
[2017-02-13] MEDS: INSULIN ASPART 300 UNITS/3 ML INSULN.PEN SQ SCH ×3 (08:00→17:02)
[2017-02-13] MEDS: PIOGLITAZONE 15 MG TABLET. PO SCH (09:52)
[2017-02-13] MEDS: METOPROLOL TART IMMED RELEASE 25 MG TABLET. PO SCH ×2 (09:55→21:32)
[2017-02-13] MEDS: ASPIRIN ENTERIC COATED 81 MG TABLET.DR. PO SCH (09:55)
[2017-02-13] MEDS: INSULIN DETEMIR 300 UNITS/3 ML INSULN.PEN. SQ SCH (10:01)
[2017-02-13 11:00] VITALS: BP 172/78
--- NOTE | 2017-02-13 11:12 | PDOC ---
Renal-Progress Notes Vitals Vitals Vital Signs Date Time Temp Pulse Resp B/P (MAP) Pulse Ox O2 Delivery O2 Flow Rate FiO2 02/13/17 09:55 86 164/78 02/13/17 07:00 98.0 18 94 Room Air 98.0 Weight Weight [ ] I.O. Intake and Output Intake and Output 02/13/17 06:59 Intake Total 1400 ml Output Total 1775 ml Balance -375 ml Intake Oral 500 ml IV Total 900 ml Output Urine Total 1775 ml Labs Labs Laboratory Tests Test 02/12/17 12:21 02/12/17 13:05 02/12/17 16:21 02/12/17 20:53 Glucose (Fingerstick) 114 mg/dL (70-99) 115 mg/dL (70-99) 305 mg/dL (70-99) 254 mg/dL (70-99) Test 02/13/17 04:35 02/13/17 07:56 Sodium Level 139 mmol/L (136-145) Potassium Level 5.2 mmol/L (3.5-5.1) Chloride Level 106 mmol/L (98-107) Carbon Dioxide Level 20 mmol/L (21-32) Anion Gap 13 (6-14) Blood Urea Nitrogen 80 mg/dL (8-26) Creatinine 5.9 mg/dL (0.7-1.3) Estimated GFR (Cockcroft-Gault) 9.2 Glucose Level 192 mg/dL (70-99) Calcium Level 7.6 mg/dL (8.5-10.1) Glucose (Fingerstick) 171 mg/dL (70-99) Micro Micro Microbiology 02/10/17 Urine Culture - Final, Complete 02/10/17 Urine Culture Result 1 (MANGO) - Final, Complete Review of Systems Constitutional: yes: alert, oriented Ears/Nose/Throat: Yes: no symptom reported Eyes: Yes: no symptom reported Pulmonary: Yes no symptom reported Cardiovascular: Yes no symptom reported Gastrointestional: Yes: no symptom reported Genitourinary: Yes: no symptom reported Musculoskeletal: Yes: no symptom reported Psychiatric/Neurological: Yes: no symptom reported Endocrine: Yes: no symptom reported Hematologic/Lymphatic: Yes: no symptom reported Physical Exam General Appearance: no apparent distress Skin: warm Respiratory: bilateral CTA Heart: S1S2 Abdomen: soft Extremities: pulses present Neurology: alert, oriented Assessment Assessment IMP CHERI WITH CR UP TO 6.0 YESTERDAY BUT DOWN TO 5.6 TODAY S/P RIGHT URETERAL STENT FOR STONE RELATED OBSTRUCTION CKD STAGE 4-5 WITH CR 3.5-4.0 ATROPHIED LEFT KIDNEY HYPERKALEMIA-RESOLVED PLAN CONT IVF'S CONT TO LOOK FOR IMPROVEMENT IN RENAL FUNCTION MAY NEED DIALYSIS IF CLEARANCE DOES NOT CONT TO GET BETTER JORGE CERON MD February 13, 2017 11:12
--- NOTE | 2017-02-13 12:49 | PDOC ---
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 Clark was walking in the hallway with nurse this morning No acute distress No complaints reported Discussed care with nurse Vitals Vitals Vital Signs Date Time Temp Pulse Resp B/P (MAP) Pulse Ox O2 Delivery O2 Flow Rate FiO2 02/13/17 11:00 98.1 68 18 172/78 (109) 96 Room Air 98.1 Physical Exam General: Alert, Oriented X3, Cooperative, No acute distress Heart: Regular rate, Normal S1, Normal S2 Lungs: Clear, Other (no wheezing) Abdomen: Normal bowel sounds, Soft, No tenderness, Other (LUGO) Extremities: No clubbing Skin: No rashes, No breakdown, No significant lesion Labs LABS Laboratory Tests Test 02/12/17 13:05 02/12/17 16:21 02/12/17 20:53 02/13/17 04:35 Glucose (Fingerstick) 115 mg/dL (70-99) 305 mg/dL (70-99) 254 mg/dL (70-99) Sodium Level 139 mmol/L (136-145) Potassium Level 5.2 mmol/L (3.5-5.1) Chloride Level 106 mmol/L (98-107) Carbon Dioxide Level 20 mmol/L (21-32) Anion Gap 13 (6-14) Blood Urea Nitrogen 80 mg/dL (8-26) Creatinine 5.9 mg/dL (0.7-1.3) Estimated GFR (Cockcroft-Gault) 9.2 Glucose Level 192 mg/dL (70-99) Calcium Level 7.6 mg/dL (8.5-10.1) Test 02/13/17 07:56 02/13/17 11:17 Glucose (Fingerstick) 171 mg/dL (70-99) 281 mg/dL (70-99) Review of Systems Review of Systems General: denies weakness GI: denies N/V/D/C Assessment and Plan Assessmemt and Plan Problems Medical Problems: (1) Hydronephrosis Status: Acute (2) Pyelonephritis Status: Acute (3) Renal failure Status: Acute CHERI WITH ANURIA 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 Ramirez recommends continued IVF and monitor renal function , "may need dialysis if clearance does not cont to get better" -Recheck AM labs -Monitor Cr -PT/OT as appropriate -Discharge disposition pending -Subspecialty input appreciated Problems: Comment Review of Relevant I have reviewed the following items magaly (where applicable) has been applied. Labs Laboratory Tests Test 02/11/17 16:16 02/11/17 20:45 02/12/17 03:42 02/12/17 07:43 Glucose (Fingerstick) 134 mg/dL (70-99) 135 mg/dL (70-99) 77 mg/dL (70-99) Sodium Level 138 mmol/L (136-145) Potassium Level 4.3 mmol/L (3.5-5.1) Chloride Level 106 mmol/L (98-107) Carbon Dioxide Level 21 mmol/L (21-32) Anion Gap 11 (6-14) Blood Urea Nitrogen 79 mg/dL (8-26) Creatinine 6.0 mg/dL (0.7-1.3) Estimated GFR (Cockcroft-Gault) 9.1 Glucose Level 82 mg/dL (70-99) Calcium Level 7.4 mg/dL (8.5-10.1) Test 02/12/17 12:21 02/12/17 13:05 02/12/17 16:21 02/12/17 20:53 Glucose (Fingerstick) 114 mg/dL (70-99) 115 mg/dL (70-99) 305 mg/dL (70-99) 254 mg/dL (70-99) Test 02/13/17 04:35 02/13/17 07:56 02/13/17 11:17 Sodium Level 139 mmol/L (136-145) Potassium Level 5.2 mmol/L (3.5-5.1) Chloride Level 106 mmol/L (98-107) Carbon Dioxide Level 20 mmol/L (21-32) Anion Gap 13 (6-14) Blood Urea Nitrogen 80 mg/dL (8-26) Creatinine 5.9 mg/dL (0.7-1.3) Estimated GFR (Cockcroft-Gault) 9.2 Glucose Level 192 mg/dL (70-99) Calcium Level 7.6 mg/dL (8.5-10.1) Glucose (Fingerstick) 171 mg/dL (70-99) 281 mg/dL (70-99) Laboratory Tests Test 02/12/17 13:05 02/12/17 16:21 02/12/17 20:53 02/13/17 04:35 Glucose (Fingerstick) 115 mg/dL (70-99) 305 mg/dL (70-99) 254 mg/dL (70-99) Sodium Level 139 mmol/L (136-145) Potassium Level 5.2 mmol/L (3.5-5.1) Chloride Level 106 mmol/L (98-107) Carbon Dioxide Level 20 mmol/L (21-32) Anion Gap 13 (6-14) Blood Urea Nitrogen 80 mg/dL (8-26) Creatinine 5.9 mg/dL (0.7-1.3) Estimated GFR (Cockcroft-Gault) 9.2 Glucose Level 192 mg/dL (70-99) Calcium Level 7.6 mg/dL (8.5-10.1) Test 02/13/17 07:56 02/13/17 11:17 Glucose (Fingerstick) 171 mg/dL (70-99) 281 mg/dL (70-99) Microbiology 02/10/17 Urine Culture - Final, Complete 02/10/17 Urine Culture Result 1 (MANGO) - Final, Complete Medications Current Medications Morphine Sulfate 4 mg 1X ONCE IV Last administered on 02/10/17 12:28; Start 02/10/17 at 12:15; Stop 02/10/17 at 12:16; Status DC Ondansetron HCl (Zofran) 4 mg 1X ONCE IV Last administered on 02/10/17 12:26 ; Start 02/10/17 at 12:15; Stop 02/10/17 at 12:16; Status DC Ceftriaxone Sodium 50 ml @ 100 mls/hr 1X ONCE IV Last administered on 13:33; Start 02/10/17 at 13:30; Stop 02/10/17 at 13:59; Status DC Ondansetron HCl (Zofran) 4 mg PRN Q8HRS PRN IV NAUSEA/VOMITING; Start 02/10/17 at 13:30; Stop 02/10/17 at 14:36; Status DC Morphine Sulfate 4 mg PRN Q2HR PRN IV PAIN Last administered on 02/10/17 17:26 ; Start 02/10/17 at 13:30; Stop 02/11/17 at 13:29; Status DC Sodium Chloride 1,000 ml @ 100 mls/hr Q10H IV Last administered on 02/11/17 09:17; Start 02/10/17 at 13:26; Stop 02/11/17 at 13:25; Status DC Lidocaine HCl (Glydo (Lidocaine) Jelly) 1 eduard 1X ONCE MM Last administered on 02/10/17 14:09; Start 02/10/17 at 13:45; Stop 02/10/17 at 13:46; Status DC Hydralazine HCl (Apresoline) 10 mg 1X ONCE IVP Last administered on 02/10/17 13:52; Start 02/10/17 at 13:45; Stop 02/10/17 at 13:46; Status DC Ondansetron HCl (Zofran) 4 mg PRN Q6HRS PRN IV NAUSEA/VOMITING Last administered on 02/10/17 21:29; Start 02/10/17 at 14:33; Stop 02/11/17 at 14:32 ; Status DC Hydralazine HCl (Apresoline) 10 mg PRN Q4HRS PRN IVP ELEVATED BP, SEE COMMENTS Last administered on 02/12/17 12:45; Start 02/10/17 at 14:45 Insulin Aspart (NovoLOG) 0-9 UNITS TIDWMEALS SQ Last administered on 02/13/17 11:42; Start 02/10/17 at 17:00 Dextrose (Dextrose 50%-Water Syringe) 12.5 gm PRN Q15MIN PRN IV SEE COMMENTS; Start 02/10/17 at 14:45 Acetaminophen (Tylenol) 650 mg PRN Q6HRS PRN PO fever Last administered on 02/12 00:58; Start 02/10/17 at 14:45 Heparin Sodium (Porcine) (Heparin Sq) 5,000 unit Q8HRS SQ Last administered on 02/13/17 05:11; Start 02/10/17 at 22:00 Aspirin (Ecotrin) 81 mg DAILYWBKFT PO Last administered on 02/13/17 09:55; Start 02/11/17 at 08:00 Insulin Detemir (Levemir) 20 units QHS SQ ; Start 02/10/17 at 21:00; Stop at 09:00; Status DC Atorvastatin Calcium (Lipitor) 10 mg QHS PO Last administered on 02/12/17 21: 01; Start 02/10/17 at 21:00 Pioglitazone HCl (Actos) 45 mg DAILY PO Last administered on 02/13/17 09:52; Start 02/11/17 at 09:00 Labetalol HCl (Normodyne) 20 mg PRN Q2HR PRN IVP HYPERTENSION, SEE COMMENTS; Start 02/10/17 at 14:45 Insulin Detemir (Levemir) 20 units DAILY08 SQ Last administered on 02/13/17 10 :01; Start 02/11/17 at 08:00 Sodium Chloride 500 ml @ 500 mls/hr 1X ONCE IV ; Start 02/11/17 at 04:45; Stop 02/11/17 at 05:44; Status DC Sodium Polystyrene Sulfonate (Kayexalate) 15 gm 1X ONCE PO Last administered on 02/11/17 12:27; Start 02/11/17 at 11:00; Stop 02/11/17 at 11:01; Status DC Morphine Sulfate 4 mg PRN Q2HR PRN IV PAIN Last administered on 02/12/17 18:25 ; Start 02/12/17 at 01:45 Ondansetron HCl (Zofran) 4 mg PRN Q6HRS PRN IV NAUSEA/VOMITING; Start 02/12/17 at 09:30; Stop 02/13/17 at 09:29; Status DC Fentanyl Citrate (Fentanyl 2ml Vial) 25 mcg PRN Q5MIN PRN IV MILD PAIN; Start 02/12/17 at 09:30; Stop 02/13/17 at 09:29; Status DC Fentanyl Citrate (Fentanyl 2ml Vial) 50 mcg PRN Q5MIN PRN IV MODERATE PAIN; Start 02/12/17 at 09:30; Stop 02/13/17 at 09:29; Status DC Morphine Sulfate 1 mg PRN Q10MIN PRN IV SEVERE PAIN; Start 02/12/17 at 09:30; Stop 02/13/17 at 09:29; Status DC Hydromorphone HCl (Dilaudid) 0.5 mg PRN Q10MIN PRN IV SEV PAIN, Second choice; Start 02/12/17 at 09:30; Stop 02/13/17 at 09:29; Status DC Prochlorperazine Edisylate (Compazine) 5 mg PACU PRN PRN IV NAUSEA, MRX1; Start 02/12/17 at 09:30; Stop 02/13/17 at 09:29; Status DC Sodium Chloride 1,000 ml @ 0 mls/hr Q0M IV ; Start 02/12/17 at 09:30 Sodium Chloride 1,000 ml @ 100 mls/hr Q10H IV Last administered on 02/13/17 11:37; Start 02/12/17 at 11:15 Iohexol (Omnipaque 300 Mg/ml) 50 ml STK-MED ONCE .ROUTE Last administered on 11:51; Start 02/12/17 at 11:19; Stop 02/12/17 at 11:20; Status DC Dexamethasone Sodium Phosphate (Decadron) 20 mg STK-MED ONCE .ROUTE ; Start at 11:20; Stop 02/12/17 at 11:21; Status DC Lidocaine HCl (Lidocaine Pf 2% Vial) 5 ml STK-MED ONCE .ROUTE ; Start 02/12/17 at 11:20; Stop 02/12/17 at 11:21; Status DC Ondansetron HCl (Zofran) 4 mg STK-MED ONCE .ROUTE ; Start 02/12/17 at 11:20; Stop 02/12/17 at 11:21; Status DC Propofol 20 ml @ As Directed STK-MED ONCE IV ; Start 02/12/17 at 11:20; Stop at 11:21; Status DC Ciprofloxacin Lactate 200 ml @ 200 mls/hr 1X PREOP ONCE IV Last administered on 02/12/17 11:34; Start 02/12/17 at 11:30; Stop 02/12/17 at 12:29; Status DC Ephedrine Sulfate 50 mg STK-MED ONCE IV ; Start 02/12/17 at 11:52; Stop at 11:53; Status DC Sevoflurane (Ultane) 30 ml STK-MED ONCE IH ; Start 02/12/17 at 12:29; Stop 02/12 at 12:30; Status DC Metoprolol Tartrate (Lopressor) 25 mg BID PO Last administered on 02/13/17 09: 55; Start 02/12/17 at 14:15 Lidocaine HCl (Glydo (Lidocaine) Jelly) 1 eduard 1X ONCE MM Last administered on 02/12/17 18:11; Start 02/12/17 at 18:15; Stop 02/12/17 at 18:16; Status DC Insulin Aspart (NovoLOG) 4 units 1X ONCE SQ Last administered on 02/12/17 21: 19; Start 02/12/17 at 21:15; Stop 02/12/17 at 21:16; Status DC Active Scripts Active Reported Aspir 81 (Aspirin) 81 Mg Tablet.dr 1 Tab PO DAILY Lantus Solostar (Insulin Glargine,Hum.rec.anlog) 100 Unit/1 Ml Insuln.pen 20 Unit SQ QHS Actos (Pioglitazone Hcl) 45 Mg Tablet 1 Tab PO DAILY Lovastatin 40 Mg Tablet 1 Tab PO DAILY Vitals/I & O Vital Sign - Last 24 Hours 02/12/17 02/12/17 02/12/17 02/12/17 13:01 13:15 13:30 14:00 Temp 97.7 97.7 Pulse 88 93 99 91 Resp 20 20 20 20 B/P (MAP) 165/76 (105) 160/73 (102) Pulse Ox 94 94 93 94 O2 Delivery Room Air Room Air Room Air Room Air 02/12/17 02/12/17 02/12/17 02/12/17 14:15 14:30 14:33 14:45 Pulse 105 98 88 104 Resp 20 20 20 B/P (MAP) 166/85 (112) 151/73 (99) 165/76 Pulse Ox 95 94 95 O2 Delivery Room Air Room Air Room Air 02/12/17 02/12/17 02/12/17 02/12/17 15:00 18:25 19:13 19:36 Temp 97.7 97.7 Pulse 105 71 Resp 20 18 B/P (MAP) 142/68 (92) 160/71 (100) Pulse Ox 88 96 O2 Delivery Room Air Room Air Room Air Room Air 02/12/17 02/12/17 02/12/17 02/13/17 20:00 21:02 23:11 03:19 Temp 97.4 97.7 97.4 97.7 Pulse 71 74 69 Resp 18 18 B/P (MAP) 160/71 143/74 (97) 140/63 (88) Pulse Ox 96 96 O2 Delivery Room Air Room Air Room Air 02/13/17 02/13/17 02/13/17 07:00 09:55 11:00 Temp 98.0 98.1 98.0 98.1 Pulse 73 86 68 Resp 18 18 B/P (MAP) 164/78 (106) 164/78 172/78 (109) Pulse Ox 94 96 O2 Delivery Room Air Room Air Intake and Output 02/12/17 02/12/17 02/13/17 15:00 23:00 07:00 Intake Total 900 ml 300 ml 200 ml Output Total 900 ml 875 ml Balance 900 ml -600 ml -675 ml NGHIA AC III DO February 13, 2017 12:49
[2017-02-13 15:00] VITALS: BP 138/65
[2017-02-13 19:44] VITALS: BP 141/65
[2017-02-13] MEDS: ATORVASTATIN CALCIUM 10 MG TABLET. PO SCH (21:31)
[2017-02-13 23:42] VITALS: BP 163/75
[2017-02-14] VITALS (7 sets, daily range): BP systolic 142–180; BP diastolic 69–87
[2017-02-14 04:48] LABS: BASO # 0.1 x10^3/uL (0.0-0.2); BASO % 1 % (0-3); EOS % 3 % (0-3); HEMATOCRIT 37.5 % (39.0-53.0); HEMOGLOBIN 12.1 g/dL (13.0-17.5); LYMPH # 1.6 x10^3/uL (1.0-4.8); LYMPH % 16 % (24-48); MEAN CORPUSCULAR HEMOGLOBIN 29 pg (25-35); MEAN CORPUSCULAR HGB CONC 32 g/dL (31-37); MEAN CORPUSCULAR VOLUME 89 fL (79-100); MONO % 9 % (0-9); NEUT % 71 % (31-73); PLATELET COUNT 186 x10^3/uL (140-400); RED BLOOD COUNT 4.22 x10^6/uL (4.30-5.70); RED CELL DISTRIBUTION WIDTH 16.1 % (11.5-14.5)
[2017-02-14 05:17] LABS: CREATININE 4.9 mg/dL (0.7-1.3); GFR 11.5; POTASSIUM 5.2 mmol/L (3.5-5.1)
[2017-02-14] MEDS: HEPARIN PF for SUB-Q USE 5,000 UNIT/0.5 ML VIAL. SQ SCH ×3 (05:58→21:52)
--- NOTE | 2017-02-14 07:34 | RAD ---
KUB, 02/14/2017: History: Follow-up stent placement A bladder catheter is in place. A right ureteral stent is in place. Its upper pigtail is projected over the mid right kidney region. Its lower pigtail is partially uncoiled with its tip projected over the region of the right side of the urinary bladder. The renal regions are partially obscured by overlying bowel content. No radiopaque urinary tract calculus is identified. Scattered vascular calcifications are noted. The abdominal gas pattern is unremarkable. Moderate multilevel degenerative change is present in the spine. IMPRESSION: 1. A right ureteral stent is in place. 2. No acute abdominal abnormality is detected.
[2017-02-14] MEDS: ASPIRIN ENTERIC COATED 81 MG TABLET.DR. PO SCH (07:45)
[2017-02-14] MEDS: INSULIN ASPART 300 UNITS/3 ML INSULN.PEN SQ SCH ×3 (07:45→17:16)
[2017-02-14] MEDS: METOPROLOL TART IMMED RELEASE 25 MG TABLET. PO SCH ×2 (07:46→21:30)
[2017-02-14] MEDS: PIOGLITAZONE 15 MG TABLET. PO SCH (07:46)
[2017-02-14] MEDS: INSULIN DETEMIR 300 UNITS/3 ML INSULN.PEN. SQ SCH (07:53)
[2017-02-14] MEDS: IV NORMAL SALINE 1000ML BAG 1,000 ML IV SCH ×2 (09:01→17:14)
[2017-02-14] MEDS: hydrALAZINE 20 MG/ML VIAL. IVP PRN (09:35)
--- NOTE | 2017-02-14 10:24 | PDOC ---
PROGRESS NOTES Chief Complaint Chief Complaint Right ureteral obstruction History of Present Illness History of Present Illness Mr. Clark was lying upright in bed in NAD Reports he is feeling ok Vitals Vitals Vital Signs Date Time Temp Pulse Resp B/P (MAP) Pulse Ox O2 Delivery O2 Flow Rate FiO2 02/14/17 09:39 72 173/82 (112) 02/14/17 07:00 98.4 18 95 Room Air 98.4 Physical Exam General: Alert, Oriented X3, Cooperative, No acute distress Heart: Regular rate, Normal S1, Normal S2 Lungs: Clear, Other (no wheezing) Abdomen: Normal bowel sounds, Soft, No tenderness, Other (LUGO) Extremities: No clubbing, No cyanosis Skin: No rashes, No breakdown, No significant lesion Labs LABS Laboratory Tests Test 02/13/17 11:17 02/13/17 16:04 02/13/17 20:44 02/14/17 04:25 Glucose (Fingerstick) 281 mg/dL (70-99) 226 mg/dL (70-99) 162 mg/dL (70-99) White Blood Count 10.0 x10^3/uL (4.0-11.0) Red Blood Count 4.22 x10^6/uL (4.30-5.70) Hemoglobin 12.1 g/dL (13.0-17.5) Hematocrit 37.5 % (39.0-53.0) Mean Corpuscular Volume 89 fL (79-100) Mean Corpuscular Hemoglobin 29 pg (25-35) Mean Corpuscular Hemoglobin Concent 32 g/dL (31-37) Red Cell Distribution Width 16.1 % (11.5-14.5) Platelet Count 186 x10^3/uL (140-400) Neutrophils (%) (Auto) 71 % (31-73) Lymphocytes (%) (Auto) 16 % (24-48) Monocytes (%) (Auto) 9 % (0-9) Eosinophils (%) (Auto) 3 % (0-3) Basophils (%) (Auto) 1 % (0-3) Neutrophils # (Auto) 7.2 x10^3uL (1.8-7.7) Lymphocytes # (Auto) 1.6 x10^3/uL (1.0-4.8) Monocytes # (Auto) 0.9 x10^3/uL (0.0-1.1) Eosinophils # (Auto) 0.3 x10^3/uL (0.0-0.7) Basophils # (Auto) 0.1 x10^3/uL (0.0-0.2) Sodium Level 144 mmol/L (136-145) Potassium Level 5.2 mmol/L (3.5-5.1) Chloride Level 111 mmol/L (98-107) Carbon Dioxide Level 21 mmol/L (21-32) Anion Gap 12 (6-14) Blood Urea Nitrogen 75 mg/dL (8-26) Creatinine 4.9 mg/dL (0.7-1.3) Estimated GFR (Cockcroft-Gault) 11.5 Glucose Level 124 mg/dL (70-99) Calcium Level 8.0 mg/dL (8.5-10.1) Test 02/14/17 07:30 Glucose (Fingerstick) 110 mg/dL (70-99) Review of Systems Review of Systems Denies chest pain Denies SOA Assessment and Plan Assessmemt and Plan Problems Medical Problems: (1) Hydronephrosis Status: Acute (2) Pyelonephritis Status: Acute (3) Renal failure Status: Acute Assessment: S/P Cystoscopy, right retrograde pyelogram, placement of indwelling right ureteral stent (4.8 Turkish x 24 cm). CHERI WITH ANURIA CKD STAGE 4 TO 5 - Cr improving with last level at 4.9 ATROPHIED LEFT KIDNEY RIGHT KIDNEY HYDRONEPHROSIS - s/p right ureteral stent 02/12 MILD HYPERKALEMIA BPH WITH URINARY RETENTION - improved with lugo in place DM II WITH HYPERGLYCEMIA HTN - most likely secondary to CKD Plan: -Nephro consulted- Dr. Paredes recommends continued IVF and monitor renal function - if Cr improves tomorrow, pt can be d/c. -Urology following -Recheck AM labs -Monitor Cr -PT/OT as appropriate -Discharge disposition pending -Subspecialty input appreciated Problems: Comment Review of Relevant I have reviewed the following items magaly (where applicable) has been applied. Labs Laboratory Tests Test 02/12/17 12:21 02/12/17 13:05 02/12/17 16:21 02/12/17 20:53 Glucose (Fingerstick) 114 mg/dL (70-99) 115 mg/dL (70-99) 305 mg/dL (70-99) 254 mg/dL (70-99) Test 02/13/17 04:35 02/13/17 07:56 02/13/17 11:17 02/13/17 16:04 Sodium Level 139 mmol/L (136-145) Potassium Level 5.2 mmol/L (3.5-5.1) Chloride Level 106 mmol/L (98-107) Carbon Dioxide Level 20 mmol/L (21-32) Anion Gap 13 (6-14) Blood Urea Nitrogen 80 mg/dL (8-26) Creatinine 5.9 mg/dL (0.7-1.3) Estimated GFR (Cockcroft-Gault) 9.2 Glucose Level 192 mg/dL (70-99) Calcium Level 7.6 mg/dL (8.5-10.1) Glucose (Fingerstick) 171 mg/dL (70-99) 281 mg/dL (70-99) 226 mg/dL (70-99) Test 02/13/17 20:44 02/14/17 04:25 02/14/17 07:30 Glucose (Fingerstick) 162 mg/dL (70-99) 110 mg/dL (70-99) White Blood Count 10.0 x10^3/uL (4.0-11.0) Red Blood Count 4.22 x10^6/uL (4.30-5.70) Hemoglobin 12.1 g/dL (13.0-17.5) Hematocrit 37.5 % (39.0-53.0) Mean Corpuscular Volume 89 fL (79-100) Mean Corpuscular Hemoglobin 29 pg (25-35) Mean Corpuscular Hemoglobin Concent 32 g/dL (31-37) Red Cell Distribution Width 16.1 % (11.5-14.5) Platelet Count 186 x10^3/uL (140-400) Neutrophils (%) (Auto) 71 % (31-73) Lymphocytes (%) (Auto) 16 % (24-48) Monocytes (%) (Auto) 9 % (0-9) Eosinophils (%) (Auto) 3 % (0-3) Basophils (%) (Auto) 1 % (0-3) Neutrophils # (Auto) 7.2 x10^3uL (1.8-7.7) Lymphocytes # (Auto) 1.6 x10^3/uL (1.0-4.8) Monocytes # (Auto) 0.9 x10^3/uL (0.0-1.1) Eosinophils # (Auto) 0.3 x10^3/uL (0.0-0.7) Basophils # (Auto) 0.1 x10^3/uL (0.0-0.2) Sodium Level 144 mmol/L (136-145) Potassium Level 5.2 mmol/L (3.5-5.1) Chloride Level 111 mmol/L (98-107) Carbon Dioxide Level 21 mmol/L (21-32) Anion Gap 12 (6-14) Blood Urea Nitrogen 75 mg/dL (8-26) Creatinine 4.9 mg/dL (0.7-1.3) Estimated GFR (Cockcroft-Gault) 11.5 Glucose Level 124 mg/dL (70-99) Calcium Level 8.0 mg/dL (8.5-10.1) Laboratory Tests Test 02/13/17 11:17 02/13/17 16:04 02/13/17 20:44 02/14/17 04:25 Glucose (Fingerstick) 281 mg/dL (70-99) 226 mg/dL (70-99) 162 mg/dL (70-99) White Blood Count 10.0 x10^3/uL (4.0-11.0) Red Blood Count 4.22 x10^6/uL (4.30-5.70) Hemoglobin 12.1 g/dL (13.0-17.5) Hematocrit 37.5 % (39.0-53.0) Mean Corpuscular Volume 89 fL (79-100) Mean Corpuscular Hemoglobin 29 pg (25-35) Mean Corpuscular Hemoglobin Concent 32 g/dL (31-37) Red Cell Distribution Width 16.1 % (11.5-14.5) Platelet Count 186 x10^3/uL (140-400) Neutrophils (%) (Auto) 71 % (31-73) Lymphocytes (%) (Auto) 16 % (24-48) Monocytes (%) (Auto) 9 % (0-9) Eosinophils (%) (Auto) 3 % (0-3) Basophils (%) (Auto) 1 % (0-3) Neutrophils # (Auto) 7.2 x10^3uL (1.8-7.7) Lymphocytes # (Auto) 1.6 x10^3/uL (1.0-4.8) Monocytes # (Auto) 0.9 x10^3/uL (0.0-1.1) Eosinophils # (Auto) 0.3 x10^3/uL (0.0-0.7) Basophils # (Auto) 0.1 x10^3/uL (0.0-0.2) Sodium Level 144 mmol/L (136-145) Potassium Level 5.2 mmol/L (3.5-5.1) Chloride Level 111 mmol/L (98-107) Carbon Dioxide Level 21 mmol/L (21-32) Anion Gap 12 (6-14) Blood Urea Nitrogen 75 mg/dL (8-26) Creatinine 4.9 mg/dL (0.7-1.3) Estimated GFR (Cockcroft-Gault) 11.5 Glucose Level 124 mg/dL (70-99) Calcium Level 8.0 mg/dL (8.5-10.1) Test 02/14/17 07:30 Glucose (Fingerstick) 110 mg/dL (70-99) Microbiology 02/10/17 Urine Culture - Final, Complete 02/10/17 Urine Culture Result 1 (MANGO) - Final, Complete Medications Current Medications Morphine Sulfate 4 mg 1X ONCE IV Last administered on 02/10/17 12:28; Start 02/10/17 at 12:15; Stop 02/10/17 at 12:16; Status DC Ondansetron HCl (Zofran) 4 mg 1X ONCE IV Last administered on 02/10/17 12:26 ; Start 02/10/17 at 12:15; Stop 02/10/17 at 12:16; Status DC Ceftriaxone Sodium 50 ml @ 100 mls/hr 1X ONCE IV Last administered on 13:33; Start 02/10/17 at 13:30; Stop 02/10/17 at 13:59; Status DC Ondansetron HCl (Zofran) 4 mg PRN Q8HRS PRN IV NAUSEA/VOMITING; Start 02/10/17 at 13:30; Stop 02/10/17 at 14:36; Status DC Morphine Sulfate 4 mg PRN Q2HR PRN IV PAIN Last administered on 02/10/17 17:26 ; Start 02/10/17 at 13:30; Stop 02/11/17 at 13:29; Status DC Sodium Chloride 1,000 ml @ 100 mls/hr Q10H IV Last administered on 02/11/17 09:17; Start 02/10/17 at 13:26; Stop 02/11/17 at 13:25; Status DC Lidocaine HCl (Glydo (Lidocaine) Jelly) 1 eduard 1X ONCE MM Last administered on 02/10/17 14:09; Start 02/10/17 at 13:45; Stop 02/10/17 at 13:46; Status DC Hydralazine HCl (Apresoline) 10 mg 1X ONCE IVP Last administered on 02/10/17 13:52; Start 02/10/17 at 13:45; Stop 02/10/17 at 13:46; Status DC Ondansetron HCl (Zofran) 4 mg PRN Q6HRS PRN IV NAUSEA/VOMITING Last administered on 02/10/17 21:29; Start 02/10/17 at 14:33; Stop 02/11/17 at 14:32 ; Status DC Hydralazine HCl (Apresoline) 10 mg PRN Q4HRS PRN IVP ELEVATED BP, SEE COMMENTS Last administered on 02/14/17 09:35; Start 02/10/17 at 14:45 Insulin Aspart (NovoLOG) 0-9 UNITS TIDWMEALS SQ Last administered on 02/13/17 17:02; Start 02/10/17 at 17:00 Dextrose (Dextrose 50%-Water Syringe) 12.5 gm PRN Q15MIN PRN IV SEE COMMENTS; Start 02/10/17 at 14:45 Acetaminophen (Tylenol) 650 mg PRN Q6HRS PRN PO fever Last administered on 02/12 00:58; Start 02/10/17 at 14:45 Heparin Sodium (Porcine) (Heparin Sq) 5,000 unit Q8HRS SQ Last administered on 02/14/17 05:58; Start 02/10/17 at 22:00 Aspirin (Ecotrin) 81 mg DAILYWBKFT PO Last administered on 02/14/17 07:45; Start 02/11/17 at 08:00 Insulin Detemir (Levemir) 20 units QHS SQ ; Start 02/10/17 at 21:00; Stop at 09:00; Status DC Atorvastatin Calcium (Lipitor) 10 mg QHS PO Last administered on 02/13/17 21: 31; Start 02/10/17 at 21:00 Pioglitazone HCl (Actos) 45 mg DAILY PO Last administered on 02/14/17 07:46; Start 02/11/17 at 09:00 Labetalol HCl (Normodyne) 20 mg PRN Q2HR PRN IVP HYPERTENSION, SEE COMMENTS; Start 02/10/17 at 14:45 Insulin Detemir (Levemir) 20 units DAILY08 SQ Last administered on 02/14/17 07 :53; Start 02/11/17 at 08:00 Sodium Chloride 500 ml @ 500 mls/hr 1X ONCE IV ; Start 02/11/17 at 04:45; Stop 02/11/17 at 05:44; Status DC Sodium Polystyrene Sulfonate (Kayexalate) 15 gm 1X ONCE PO Last administered on 02/11/17 12:27; Start 02/11/17 at 11:00; Stop 02/11/17 at 11:01; Status DC Morphine Sulfate 4 mg PRN Q2HR PRN IV PAIN Last administered on 02/12/17 18:25 ; Start 02/12/17 at 01:45 Ondansetron HCl (Zofran) 4 mg PRN Q6HRS PRN IV NAUSEA/VOMITING; Start 02/12/17 at 09:30; Stop 02/13/17 at 09:29; Status DC Fentanyl Citrate (Fentanyl 2ml Vial) 25 mcg PRN Q5MIN PRN IV MILD PAIN; Start 02/12/17 at 09:30; Stop 02/13/17 at 09:29; Status DC Fentanyl Citrate (Fentanyl 2ml Vial) 50 mcg PRN Q5MIN PRN IV MODERATE PAIN; Start 02/12/17 at 09:30; Stop 02/13/17 at 09:29; Status DC Morphine Sulfate 1 mg PRN Q10MIN PRN IV SEVERE PAIN; Start 02/12/17 at 09:30; Stop 02/13/17 at 09:29; Status DC Hydromorphone HCl (Dilaudid) 0.5 mg PRN Q10MIN PRN IV SEV PAIN, Second choice; Start 02/12/17 at 09:30; Stop 02/13/17 at 09:29; Status DC Prochlorperazine Edisylate (Compazine) 5 mg PACU PRN PRN IV NAUSEA, MRX1; Start 02/12/17 at 09:30; Stop 02/13/17 at 09:29; Status DC Sodium Chloride 1,000 ml @ 0 mls/hr Q0M IV ; Start 02/12/17 at 09:30; Stop at 14:24; Status DC Sodium Chloride 1,000 ml @ 100 mls/hr Q10H IV Last administered on 02/14/17 09:01; Start 02/12/17 at 11:15 Iohexol (Omnipaque 300 Mg/ml) 50 ml STK-MED ONCE .ROUTE Last administered on 11:51; Start 02/12/17 at 11:19; Stop 02/12/17 at 11:20; Status DC Dexamethasone Sodium Phosphate (Decadron) 20 mg STK-MED ONCE .ROUTE ; Start at 11:20; Stop 02/12/17 at 11:21; Status DC Lidocaine HCl (Lidocaine Pf 2% Vial) 5 ml STK-MED ONCE .ROUTE ; Start 02/12/17 at 11:20; Stop 02/12/17 at 11:21; Status DC Ondansetron HCl (Zofran) 4 mg STK-MED ONCE .ROUTE ; Start 02/12/17 at 11:20; Stop 02/12/17 at 11:21; Status DC Propofol 20 ml @ As Directed STK-MED ONCE IV ; Start 02/12/17 at 11:20; Stop at 11:21; Status DC Ciprofloxacin Lactate 200 ml @ 200 mls/hr 1X PREOP ONCE IV Last administered on 02/12/17 11:34; Start 02/12/17 at 11:30; Stop 02/12/17 at 12:29; Status DC Ephedrine Sulfate 50 mg STK-MED ONCE IV ; Start 02/12/17 at 11:52; Stop at 11:53; Status DC Sevoflurane (Ultane) 30 ml STK-MED ONCE IH ; Start 02/12/17 at 12:29; Stop 02/12 at 12:30; Status DC Metoprolol Tartrate (Lopressor) 25 mg BID PO Last administered on 02/14/17 07: 46; Start 02/12/17 at 14:15 Lidocaine HCl (Glydo (Lidocaine) Jelly) 1 eduard 1X ONCE MM Last administered on 02/12/17 18:11; Start 02/12/17 at 18:15; Stop 02/12/17 at 18:16; Status DC Insulin Aspart (NovoLOG) 4 units 1X ONCE SQ Last administered on 02/12/17 21: 19; Start 02/12/17 at 21:15; Stop 02/12/17 at 21:16; Status DC Active Scripts Active Reported Aspir 81 (Aspirin) 81 Mg Tablet.dr 1 Tab PO DAILY Lantus Solostar (Insulin Glargine,Hum.rec.anlog) 100 Unit/1 Ml Insuln.pen 20 Unit SQ QHS Actos (Pioglitazone Hcl) 45 Mg Tablet 1 Tab PO DAILY Lovastatin 40 Mg Tablet 1 Tab PO DAILY Vitals/I & O Vital Sign - Last 24 Hours 02/13/17 02/13/17 02/13/17 02/13/17 11:00 15:00 19:44 21:32 Temp 98.1 97.8 97.8 98.1 97.8 97.8 Pulse 68 71 77 77 Resp 18 18 B/P (MAP) 172/78 (109) 138/65 (89) 141/65 (90) 141/65 Pulse Ox 96 96 97 O2 Delivery Room Air Room Air Room Air 02/13/17 02/14/17 02/14/17 02/14/17 23:42 03:28 07:00 07:46 Temp 98.3 98.3 98.4 98.3 98.3 98.4 Pulse 78 66 71 80 Resp 18 18 B/P (MAP) 163/75 (104) 172/79 (110) 180/87 (118) 180/87 Pulse Ox 96 94 95 O2 Delivery Room Air Room Air Room Air 02/14/17 02/14/17 09:35 09:39 Pulse 72 72 B/P (MAP) 173/82 173/82 (112) Intake and Output 502/13/17 02/14/17 15:00 23:00 07:00 Intake Total 200 ml Output Total 1500 ml 1950 ml Balance 200 ml -1500 ml -1950 ml NGHIA AC III, DO February 14, 2017 10:24
--- NOTE | 2017-02-14 11:23 | PDOC ---
Renal-Progress Notes Subjective Notes Notes BETTER History of Present Illness Hx of present illness IMPROVED Vitals Vitals Vital Signs Date Time Temp Pulse Resp B/P (MAP) Pulse Ox O2 Delivery O2 Flow Rate FiO2 02/14/17 09:39 72 173/82 (112) 02/14/17 07:00 98.4 18 95 Room Air 98.4 Weight Weight [ ] I.O. Intake and Output Intake and Output 02/14/17 07:00 Intake Total 200 ml Output Total 3450 ml Balance -3250 ml Intake Oral 200 ml Output Urine Total 3450 ml Labs Labs Laboratory Tests Test 02/13/17 16:04 02/13/17 20:44 02/14/17 04:25 02/14/17 07:30 Glucose (Fingerstick) 226 mg/dL (70-99) 162 mg/dL (70-99) 110 mg/dL (70-99) White Blood Count 10.0 x10^3/uL (4.0-11.0) Red Blood Count 4.22 x10^6/uL (4.30-5.70) Hemoglobin 12.1 g/dL (13.0-17.5) Hematocrit 37.5 % (39.0-53.0) Mean Corpuscular Volume 89 fL (79-100) Mean Corpuscular Hemoglobin 29 pg (25-35) Mean Corpuscular Hemoglobin Concent 32 g/dL (31-37) Red Cell Distribution Width 16.1 % (11.5-14.5) Platelet Count 186 x10^3/uL (140-400) Neutrophils (%) (Auto) 71 % (31-73) Lymphocytes (%) (Auto) 16 % (24-48) Monocytes (%) (Auto) 9 % (0-9) Eosinophils (%) (Auto) 3 % (0-3) Basophils (%) (Auto) 1 % (0-3) Neutrophils # (Auto) 7.2 x10^3uL (1.8-7.7) Lymphocytes # (Auto) 1.6 x10^3/uL (1.0-4.8) Monocytes # (Auto) 0.9 x10^3/uL (0.0-1.1) Eosinophils # (Auto) 0.3 x10^3/uL (0.0-0.7) Basophils # (Auto) 0.1 x10^3/uL (0.0-0.2) Sodium Level 144 mmol/L (136-145) Potassium Level 5.2 mmol/L (3.5-5.1) Chloride Level 111 mmol/L (98-107) Carbon Dioxide Level 21 mmol/L (21-32) Anion Gap 12 (6-14) Blood Urea Nitrogen 75 mg/dL (8-26) Creatinine 4.9 mg/dL (0.7-1.3) Estimated GFR (Cockcroft-Gault) 11.5 Glucose Level 124 mg/dL (70-99) Calcium Level 8.0 mg/dL (8.5-10.1) Micro Micro Microbiology 02/10/17 Urine Culture - Final, Complete 02/10/17 Urine Culture Result 1 (MANGO) - Final, Complete Review of Systems Constitutional: yes: alert, oriented Ears/Nose/Throat: Yes: no symptom reported Eyes: Yes: no symptom reported Pulmonary: Yes no symptom reported Cardiovascular: Yes no symptom reported Gastrointestional: Yes: no symptom reported Genitourinary: Yes: no symptom reported Musculoskeletal: Yes: no symptom reported Psychiatric/Neurological: Yes: no symptom reported Endocrine: Yes: no symptom reported Hematologic/Lymphatic: Yes: no symptom reported Physical Exam General Appearance: no apparent distress Skin: warm Respiratory: bilateral CTA Heart: S1S2 Abdomen: soft Extremities: pulses present Neurology: alert, oriented Assessment Assessment IMP CHERI WITH CR UP TO 6.0 YESTERDAY BUT DOWN TO 4.9 TODAY S/P RIGHT URETERAL STENT FOR STONE RELATED OBSTRUCTION 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
[2017-02-14] MEDS ORDERED: POLYETHYLENE GLYCOL 3350 17 GM PACKET. PO PRN (11:45)
[2017-02-14] MEDS ORDERED: SENNOSIDES/DOCUSATE 8.6/50MG TABLET. PO PRN (11:45)
[2017-02-14] MEDS: POLYETHYLENE GLYCOL 3350 17 GM PACKET. PO SCH (11:56)
[2017-02-14] MEDS: ATORVASTATIN CALCIUM 10 MG TABLET. PO SCH (21:29)
[2017-02-15 03:10] VITALS: BP 158/71
[2017-02-15 03:39] LABS: BASO % 1 % (0-3); EOS % 3 % (0-3); HEMATOCRIT 34.4 % (39.0-53.0); HEMOGLOBIN 11.7 g/dL (13.0-17.5); LYMPH # 1.9 x10^3/uL (1.0-4.8); LYMPH % 21 % (24-48); MEAN CORPUSCULAR HEMOGLOBIN 30 pg (25-35); MEAN CORPUSCULAR HGB CONC 34 g/dL (31-37); MEAN CORPUSCULAR VOLUME 88 fL (79-100); MONO % 9 % (0-9); NEUT % 66 % (31-73); PLATELET COUNT 183 x10^3/uL (140-400); RED BLOOD COUNT 3.94 x10^6/uL (4.30-5.70); RED CELL DISTRIBUTION WIDTH 16.4 % (11.5-14.5)
[2017-02-15 04:23] LABS: CREATININE 4.4 mg/dL (0.7-1.3); POTASSIUM 4.5 mmol/L (3.5-5.1)
[2017-02-15] MEDS: HEPARIN PF for SUB-Q USE 5,000 UNIT/0.5 ML VIAL. SQ SCH ×3 (05:44→20:44)
[2017-02-15] MEDS: IV NORMAL SALINE 1000ML BAG 1,000 ML IV SCH ×2 (05:45→15:14)
[2017-02-15 07:00] VITALS: BP 148/76
[2017-02-15] MEDS: INSULIN DETEMIR 300 UNITS/3 ML INSULN.PEN. SQ SCH ×2 (08:00→12:56)
[2017-02-15] MEDS: INSULIN ASPART 300 UNITS/3 ML INSULN.PEN SQ SCH ×3 (08:00→16:58)
[2017-02-15] MEDS: PIOGLITAZONE 15 MG TABLET. PO SCH (08:17)
[2017-02-15] MEDS: ASPIRIN ENTERIC COATED 81 MG TABLET.DR. PO SCH (08:17)
[2017-02-15] MEDS: METOPROLOL TART IMMED RELEASE 25 MG TABLET. PO SCH ×2 (08:18→20:37)
[2017-02-15] MEDS: POLYETHYLENE GLYCOL 3350 17 GM PACKET. PO SCH (08:18)
--- NOTE | 2017-02-15 08:52 | PDOC ---
PROGRESS NOTES Chief Complaint Chief Complaint Right ureteral obstruction History of Present Illness History of Present Illness Mr. Clark was lying upright in bed in NAD Eating breakfast Reports he is feeling ok Would like to go home, but stated he would prefer w/out a velasco Vitals Vitals Vital Signs Date Time Temp Pulse Resp B/P (MAP) Pulse Ox O2 Delivery O2 Flow Rate FiO2 02/15/17 08:18 73 158/71 02/15/17 03:10 98.5 18 94 Room Air 98.5 Physical Exam General: Alert, Oriented X3, Cooperative, No acute distress Heart: Regular rate, Normal S1, Normal S2 Lungs: Clear, Other (no wheezing) Abdomen: Normal bowel sounds, Soft, No tenderness, Other (VELASCO) Extremities: No clubbing, No cyanosis Skin: No rashes, No breakdown, No significant lesion Labs LABS Laboratory Tests Test 02/14/17 12:02 02/14/17 14:43 02/14/17 16:21 02/14/17 21:10 Glucose (Fingerstick) 243 mg/dL (70-99) 273 mg/dL (70-99) 174 mg/dL (70-99) 96 mg/dL (70-99) Test 02/15/17 02:45 02/15/17 07:42 White Blood Count 9.0 x10^3/uL (4.0-11.0) Red Blood Count 3.94 x10^6/uL (4.30-5.70) Hemoglobin 11.7 g/dL (13.0-17.5) Hematocrit 34.4 % (39.0-53.0) Mean Corpuscular Volume 88 fL (79-100) Mean Corpuscular Hemoglobin 30 pg (25-35) Mean Corpuscular Hemoglobin Concent 34 g/dL (31-37) Red Cell Distribution Width 16.4 % (11.5-14.5) Platelet Count 183 x10^3/uL (140-400) Neutrophils (%) (Auto) 66 % (31-73) Lymphocytes (%) (Auto) 21 % (24-48) Monocytes (%) (Auto) 9 % (0-9) Eosinophils (%) (Auto) 3 % (0-3) Basophils (%) (Auto) 1 % (0-3) Neutrophils # (Auto) 5.9 x10^3uL (1.8-7.7) Lymphocytes # (Auto) 1.9 x10^3/uL (1.0-4.8) Monocytes # (Auto) 0.8 x10^3/uL (0.0-1.1) Eosinophils # (Auto) 0.3 x10^3/uL (0.0-0.7) Basophils # (Auto) 0.0 x10^3/uL (0.0-0.2) Sodium Level 145 mmol/L (136-145) Potassium Level 4.5 mmol/L (3.5-5.1) Chloride Level 112 mmol/L (98-107) Carbon Dioxide Level 21 mmol/L (21-32) Anion Gap 12 (6-14) Blood Urea Nitrogen 70 mg/dL (8-26) Creatinine 4.4 mg/dL (0.7-1.3) Estimated GFR (Cockcroft-Gault) 13.0 Glucose Level 71 mg/dL (70-99) Calcium Level 8.0 mg/dL (8.5-10.1) Glucose (Fingerstick) 99 mg/dL (70-99) Review of Systems Review of Systems Denies chest pain Denies SOA Assessment and Plan Assessmemt and Plan Problems Medical Problems: (1) Hydronephrosis Status: Acute (2) Pyelonephritis Status: Acute (3) Renal failure Status: Acute Assessment: S/P Cystoscopy, right retrograde pyelogram, placement of indwelling right ureteral stent (4.8 Cuban x 24 cm). CHERI WITH ANURIA CKD STAGE 4 TO 5 - Cr improving with last level at 4.4 ATROPHIED LEFT KIDNEY RIGHT KIDNEY HYDRONEPHROSIS - s/p right ureteral stent 02/12 MILD HYPERKALEMIA BPH WITH URINARY RETENTION - improved with velasco in place DM II WITH HYPERGLYCEMIA HTN - most likely secondary to CKD Plan: -Nephro consulted- ok to d/c with improving Cr -Urology following - need to determine if pt will require velasco at home -D/C today if ok with urology -Activity as tolerated -f/u w/ pcp in 2 weeks -Subspecialty input appreciated Problems: Comment Review of Relevant I have reviewed the following items magaly (where applicable) has been applied. Labs Laboratory Tests Test 02/13/17 11:17 02/13/17 16:04 02/13/17 20:44 02/14/17 04:25 Glucose (Fingerstick) 281 mg/dL (70-99) 226 mg/dL (70-99) 162 mg/dL (70-99) White Blood Count 10.0 x10^3/uL (4.0-11.0) Red Blood Count 4.22 x10^6/uL (4.30-5.70) Hemoglobin 12.1 g/dL (13.0-17.5) Hematocrit 37.5 % (39.0-53.0) Mean Corpuscular Volume 89 fL (79-100) Mean Corpuscular Hemoglobin 29 pg (25-35) Mean Corpuscular Hemoglobin Concent 32 g/dL (31-37) Red Cell Distribution Width 16.1 % (11.5-14.5) Platelet Count 186 x10^3/uL (140-400) Neutrophils (%) (Auto) 71 % (31-73) Lymphocytes (%) (Auto) 16 % (24-48) Monocytes (%) (Auto) 9 % (0-9) Eosinophils (%) (Auto) 3 % (0-3) Basophils (%) (Auto) 1 % (0-3) Neutrophils # (Auto) 7.2 x10^3uL (1.8-7.7) Lymphocytes # (Auto) 1.6 x10^3/uL (1.0-4.8) Monocytes # (Auto) 0.9 x10^3/uL (0.0-1.1) Eosinophils # (Auto) 0.3 x10^3/uL (0.0-0.7) Basophils # (Auto) 0.1 x10^3/uL (0.0-0.2) Sodium Level 144 mmol/L (136-145) Potassium Level 5.2 mmol/L (3.5-5.1) Chloride Level 111 mmol/L (98-107) Carbon Dioxide Level 21 mmol/L (21-32) Anion Gap 12 (6-14) Blood Urea Nitrogen 75 mg/dL (8-26) Creatinine 4.9 mg/dL (0.7-1.3) Estimated GFR (Cockcroft-Gault) 11.5 Glucose Level 124 mg/dL (70-99) Calcium Level 8.0 mg/dL (8.5-10.1) Test 02/14/17 07:30 02/14/17 12:02 02/14/17 14:43 02/14/17 16:21 Glucose (Fingerstick) 110 mg/dL (70-99) 243 mg/dL (70-99) 273 mg/dL (70-99) 174 mg/dL (70-99) Test 02/14/17 21:10 02/15/17 02:45 02/15/17 07:42 Glucose (Fingerstick) 96 mg/dL (70-99) 99 mg/dL (70-99) White Blood Count 9.0 x10^3/uL (4.0-11.0) Red Blood Count 3.94 x10^6/uL (4.30-5.70) Hemoglobin 11.7 g/dL (13.0-17.5) Hematocrit 34.4 % (39.0-53.0) Mean Corpuscular Volume 88 fL (79-100) Mean Corpuscular Hemoglobin 30 pg (25-35) Mean Corpuscular Hemoglobin Concent 34 g/dL (31-37) Red Cell Distribution Width 16.4 % (11.5-14.5) Platelet Count 183 x10^3/uL (140-400) Neutrophils (%) (Auto) 66 % (31-73) Lymphocytes (%) (Auto) 21 % (24-48) Monocytes (%) (Auto) 9 % (0-9) Eosinophils (%) (Auto) 3 % (0-3) Basophils (%) (Auto) 1 % (0-3) Neutrophils # (Auto) 5.9 x10^3uL (1.8-7.7) Lymphocytes # (Auto) 1.9 x10^3/uL (1.0-4.8) Monocytes # (Auto) 0.8 x10^3/uL (0.0-1.1) Eosinophils # (Auto) 0.3 x10^3/uL (0.0-0.7) Basophils # (Auto) 0.0 x10^3/uL (0.0-0.2) Sodium Level 145 mmol/L (136-145) Potassium Level 4.5 mmol/L (3.5-5.1) Chloride Level 112 mmol/L (98-107) Carbon Dioxide Level 21 mmol/L (21-32) Anion Gap 12 (6-14) Blood Urea Nitrogen 70 mg/dL (8-26) Creatinine 4.4 mg/dL (0.7-1.3) Estimated GFR (Cockcroft-Gault) 13.0 Glucose Level 71 mg/dL (70-99) Calcium Level 8.0 mg/dL (8.5-10.1) Laboratory Tests Test 02/14/17 12:02 02/14/17 14:43 02/14/17 16:21 02/14/17 21:10 Glucose (Fingerstick) 243 mg/dL (70-99) 273 mg/dL (70-99) 174 mg/dL (70-99) 96 mg/dL (70-99) Test 02/15/17 02:45 02/15/17 07:42 White Blood Count 9.0 x10^3/uL (4.0-11.0) Red Blood Count 3.94 x10^6/uL (4.30-5.70) Hemoglobin 11.7 g/dL (13.0-17.5) Hematocrit 34.4 % (39.0-53.0) Mean Corpuscular Volume 88 fL (79-100) Mean Corpuscular Hemoglobin 30 pg (25-35) Mean Corpuscular Hemoglobin Concent 34 g/dL (31-37) Red Cell Distribution Width 16.4 % (11.5-14.5) Platelet Count 183 x10^3/uL (140-400) Neutrophils (%) (Auto) 66 % (31-73) Lymphocytes (%) (Auto) 21 % (24-48) Monocytes (%) (Auto) 9 % (0-9) Eosinophils (%) (Auto) 3 % (0-3) Basophils (%) (Auto) 1 % (0-3) Neutrophils # (Auto) 5.9 x10^3uL (1.8-7.7) Lymphocytes # (Auto) 1.9 x10^3/uL (1.0-4.8) Monocytes # (Auto) 0.8 x10^3/uL (0.0-1.1) Eosinophils # (Auto) 0.3 x10^3/uL (0.0-0.7) Basophils # (Auto) 0.0 x10^3/uL (0.0-0.2) Sodium Level 145 mmol/L (136-145) Potassium Level 4.5 mmol/L (3.5-5.1) Chloride Level 112 mmol/L (98-107) Carbon Dioxide Level 21 mmol/L (21-32) Anion Gap 12 (6-14) Blood Urea Nitrogen 70 mg/dL (8-26) Creatinine 4.4 mg/dL (0.7-1.3) Estimated GFR (Cockcroft-Gault) 13.0 Glucose Level 71 mg/dL (70-99) Calcium Level 8.0 mg/dL (8.5-10.1) Glucose (Fingerstick) 99 mg/dL (70-99) Microbiology 02/10/17 Urine Culture - Final, Complete 02/10/17 Urine Culture Result 1 (MANGO) - Final, Complete Medications Current Medications Morphine Sulfate 4 mg 1X ONCE IV Last administered on 02/10/17 12:28; Start 02/10/17 at 12:15; Stop 02/10/17 at 12:16; Status DC Ondansetron HCl (Zofran) 4 mg 1X ONCE IV Last administered on 02/10/17 12:26 ; Start 02/10/17 at 12:15; Stop 02/10/17 at 12:16; Status DC Ceftriaxone Sodium 50 ml @ 100 mls/hr 1X ONCE IV Last administered on 13:33; Start 02/10/17 at 13:30; Stop 02/10/17 at 13:59; Status DC Ondansetron HCl (Zofran) 4 mg PRN Q8HRS PRN IV NAUSEA/VOMITING; Start 02/10/17 at 13:30; Stop 02/10/17 at 14:36; Status DC Morphine Sulfate 4 mg PRN Q2HR PRN IV PAIN Last administered on 02/10/17 17:26 ; Start 02/10/17 at 13:30; Stop 02/11/17 at 13:29; Status DC Sodium Chloride 1,000 ml @ 100 mls/hr Q10H IV Last administered on 02/11/17 09:17; Start 02/10/17 at 13:26; Stop 02/11/17 at 13:25; Status DC Lidocaine HCl (Glydo (Lidocaine) Jelly) 1 eduard 1X ONCE MM Last administered on 02/10/17 14:09; Start 02/10/17 at 13:45; Stop 02/10/17 at 13:46; Status DC Hydralazine HCl (Apresoline) 10 mg 1X ONCE IVP Last administered on 02/10/17 13:52; Start 02/10/17 at 13:45; Stop 02/10/17 at 13:46; Status DC Ondansetron HCl (Zofran) 4 mg PRN Q6HRS PRN IV NAUSEA/VOMITING Last administered on 02/10/17 21:29; Start 02/10/17 at 14:33; Stop 02/11/17 at 14:32 ; Status DC Hydralazine HCl (Apresoline) 10 mg PRN Q4HRS PRN IVP ELEVATED BP, SEE COMMENTS Last administered on 02/14/17 09:35; Start 02/10/17 at 14:45 Insulin Aspart (NovoLOG) 0-9 UNITS TIDWMEALS SQ Last administered on 02/14/17 17:16; Start 02/10/17 at 17:00 Dextrose (Dextrose 50%-Water Syringe) 12.5 gm PRN Q15MIN PRN IV SEE COMMENTS; Start 02/10/17 at 14:45 Acetaminophen (Tylenol) 650 mg PRN Q6HRS PRN PO fever Last administered on 02/12 00:58; Start 02/10/17 at 14:45 Heparin Sodium (Porcine) (Heparin Sq) 5,000 unit Q8HRS SQ Last administered on 02/15/17 05:44; Start 02/10/17 at 22:00 Aspirin (Ecotrin) 81 mg [id number] PO Last administered on 02/15/17 08:17; Start 02/11/17 at 08:00 Insulin Detemir (Levemir) 20 units QHS SQ ; Start 02/10/17 at 21:00; Stop at 09:00; Status DC Atorvastatin Calcium (Lipitor) 10 mg QHS PO Last administered on 02/14/17 21: 29; Start 02/10/17 at 21:00 Pioglitazone HCl (Actos) 45 mg DAILY PO Last administered on 02/15/17 08:17; Start 02/11/17 at 09:00 Labetalol HCl (Normodyne) 20 mg PRN Q2HR PRN IVP HYPERTENSION, SEE COMMENTS; Start 02/10/17 at 14:45 Insulin Detemir (Levemir) 20 units DAILY08 SQ Last administered on 02/14/17 07 :53; Start 02/11/17 at 08:00 Sodium Chloride 500 ml @ 500 mls/hr 1X ONCE IV ; Start 02/11/17 at 04:45; Stop 02/11/17 at 05:44; Status DC Sodium Polystyrene Sulfonate (Kayexalate) 15 gm 1X ONCE PO Last administered on 02/11/17 12:27; Start 02/11/17 at 11:00; Stop 02/11/17 at 11:01; Status DC Morphine Sulfate 4 mg PRN Q2HR PRN IV PAIN Last administered on 02/12/17 18:25 ; Start 02/12/17 at 01:45 Ondansetron HCl (Zofran) 4 mg PRN Q6HRS PRN IV NAUSEA/VOMITING; Start 02/12/17 at 09:30; Stop 02/13/17 at 09:29; Status DC Fentanyl Citrate (Fentanyl 2ml Vial) 25 mcg PRN Q5MIN PRN IV MILD PAIN; Start 02/12/17 at 09:30; Stop 02/13/17 at 09:29; Status DC Fentanyl Citrate (Fentanyl 2ml Vial) 50 mcg PRN Q5MIN PRN IV MODERATE PAIN; Start 02/12/17 at 09:30; Stop 02/13/17 at 09:29; Status DC Morphine Sulfate 1 mg PRN Q10MIN PRN IV SEVERE PAIN; Start 02/12/17 at 09:30; Stop 02/13/17 at 09:29; Status DC Hydromorphone HCl (Dilaudid) 0.5 mg PRN Q10MIN PRN IV SEV PAIN, Second choice; Start 02/12/17 at 09:30; Stop 02/13/17 at 09:29; Status DC Prochlorperazine Edisylate (Compazine) 5 mg PACU PRN PRN IV NAUSEA, MRX1; Start 02/12/17 at 09:30; Stop 02/13/17 at 09:29; Status DC Sodium Chloride 1,000 ml @ 0 mls/hr Q0M IV ; Start 02/12/17 at 09:30; Stop at 14:24; Status DC Sodium Chloride 1,000 ml @ 100 mls/hr Q10H IV Last administered on 02/15/17 05:45; Start 02/12/17 at 11:15 Iohexol (Omnipaque 300 Mg/ml) 50 ml STK-MED ONCE .ROUTE Last administered on 11:51; Start 02/12/17 at 11:19; Stop 02/12/17 at 11:20; Status DC Dexamethasone Sodium Phosphate (Decadron) 20 mg STK-MED ONCE .ROUTE ; Start at 11:20; Stop 02/12/17 at 11:21; Status DC Lidocaine HCl (Lidocaine Pf 2% Vial) 5 ml STK-MED ONCE .ROUTE ; Start 02/12/17 at 11:20; Stop 02/12/17 at 11:21; Status DC Ondansetron HCl (Zofran) 4 mg STK-MED ONCE .ROUTE ; Start 02/12/17 at 11:20; Stop 02/12/17 at 11:21; Status DC Propofol 20 ml @ As Directed STK-MED ONCE IV ; Start 02/12/17 at 11:20; Stop at 11:21; Status DC Ciprofloxacin Lactate 200 ml @ 200 mls/hr 1X PREOP ONCE IV Last administered on 02/12/17 11:34; Start 02/12/17 at 11:30; Stop 02/12/17 at 12:29; Status DC Ephedrine Sulfate 50 mg STK-MED ONCE IV ; Start 02/12/17 at 11:52; Stop at 11:53; Status DC Sevoflurane (Ultane) 30 ml STK-MED ONCE IH ; Start 02/12/17 at 12:29; Stop 02/12 at 12:30; Status DC Metoprolol Tartrate (Lopressor) 25 mg BID PO Last administered on 02/15/17 08: 18; Start 02/12/17 at 14:15 Lidocaine HCl (Glydo (Lidocaine) Jelly) 1 eduard 1X ONCE MM Last administered on 02/12/17 18:11; Start 02/12/17 at 18:15; Stop 02/12/17 at 18:16; Status DC Insulin Aspart (NovoLOG) 4 units 1X ONCE SQ Last administered on 02/12/17 21: 19; Start 02/12/17 at 21:15; Stop 02/12/17 at 21:16; Status DC Senna/Docusate Sodium (Senna Plus) 2 tab PRN BID PRN PO CONSTIPATION Last administered on 02/14/17 11:56; Start 02/14/17 at 11:45 Polyethylene Glycol (miraLAX PACKET) 17 gm PRN DAILY PRN PO CONSTIPATION; Start 02/14/17 at 11:45 Polyethylene Glycol (miraLAX PACKET) 17 gm DAILY PO Last administered on 08:18; Start 02/14/17 at 12:00 Active Scripts Active Reported Aspir 81 (Aspirin) 81 Mg Tablet.dr 1 Tab PO DAILY Lantus Solostar (Insulin Glargine,Hum.rec.anlog) 100 Unit/1 Ml Insuln.pen 20 Unit SQ QHS Actos (Pioglitazone Hcl) 45 Mg Tablet 1 Tab PO DAILY Lovastatin 40 Mg Tablet 1 Tab PO DAILY Vitals/I & O Vital Sign - Last 24 Hours 02/14/17 02/14/17 02/14/17 02/14/17 09:35 09:39 11:00 15:00 Temp 98.1 98.3 98.1 98.3 Pulse 72 72 72 70 Resp 18 18 B/P (MAP) 173/82 173/82 (112) 168/83 (111) 168/73 (104) Pulse Ox 96 95 O2 Delivery Room Air Room Air 02/14/17 02/14/17 02/14/17 02/15/17 19:30 21:30 23:32 03:10 Temp 97.9 98.3 98.5 97.9 98.3 98.5 Pulse 69 69 60 73 Resp 18 18 18 B/P (MAP) 142/69 (93) 142/69 150/70 (96) 158/71 (100) Pulse Ox 97 95 94 O2 Delivery Room Air Room Air Room Air 02/15/17 08:18 Pulse 73 B/P (MAP) 158/71 Intake and Output 02/14/17 02/14/17 02/15/17 15:00 23:00 07:00 Intake Total 1640 ml Output Total 800 ml 1600 ml 1150 ml Balance -800 ml -1600 ml 490 ml CASTLE,NIAL K III DO February 15, 2017 08:51
--- NOTE | 2017-02-15 10:08 | PDOC ---
Renal-Progress Notes Subjective Notes Notes NO NEW COMPLAINTS History of Present Illness Hx of present illness NO CHANGE Vitals Vitals Vital Signs Date Time Temp Pulse Resp B/P (MAP) Pulse Ox O2 Delivery O2 Flow Rate FiO2 02/15/17 08:18 73 158/71 02/15/17 07:00 97.4 20 98 Room Air 97.4 Weight Weight [ ] I.O. Intake and Output Intake and Output 02/15/17 07:00 Intake Total 2080 ml Output Total 5550 ml Balance -3470 ml Intake Oral 880 ml IV Total 1200 ml Output Urine Total 5550 ml Labs Labs Laboratory Tests Test 02/14/17 12:02 02/14/17 14:43 02/14/17 16:21 02/14/17 21:10 Glucose (Fingerstick) 243 mg/dL (70-99) 273 mg/dL (70-99) 174 mg/dL (70-99) 96 mg/dL (70-99) Test 02/15/17 02:45 02/15/17 07:42 White Blood Count 9.0 x10^3/uL (4.0-11.0) Red Blood Count 3.94 x10^6/uL (4.30-5.70) Hemoglobin 11.7 g/dL (13.0-17.5) Hematocrit 34.4 % (39.0-53.0) Mean Corpuscular Volume 88 fL (79-100) Mean Corpuscular Hemoglobin 30 pg (25-35) Mean Corpuscular Hemoglobin Concent 34 g/dL (31-37) Red Cell Distribution Width 16.4 % (11.5-14.5) Platelet Count 183 x10^3/uL (140-400) Neutrophils (%) (Auto) 66 % (31-73) Lymphocytes (%) (Auto) 21 % (24-48) Monocytes (%) (Auto) 9 % (0-9) Eosinophils (%) (Auto) 3 % (0-3) Basophils (%) (Auto) 1 % (0-3) Neutrophils # (Auto) 5.9 x10^3uL (1.8-7.7) Lymphocytes # (Auto) 1.9 x10^3/uL (1.0-4.8) Monocytes # (Auto) 0.8 x10^3/uL (0.0-1.1) Eosinophils # (Auto) 0.3 x10^3/uL (0.0-0.7) Basophils # (Auto) 0.0 x10^3/uL (0.0-0.2) Sodium Level 145 mmol/L (136-145) Potassium Level 4.5 mmol/L (3.5-5.1) Chloride Level 112 mmol/L (98-107) Carbon Dioxide Level 21 mmol/L (21-32) Anion Gap 12 (6-14) Blood Urea Nitrogen 70 mg/dL (8-26) Creatinine 4.4 mg/dL (0.7-1.3) Estimated GFR (Cockcroft-Gault) 13.0 Glucose Level 71 mg/dL (70-99) Calcium Level 8.0 mg/dL (8.5-10.1) Glucose (Fingerstick) 99 mg/dL (70-99) Micro Micro Microbiology 02/10/17 Urine Culture - Final, Complete 02/10/17 Urine Culture Result 1 (MANGO) - Final, Complete Review of Systems Constitutional: yes: alert, oriented Ears/Nose/Throat: Yes: no symptom reported Eyes: Yes: no symptom reported Pulmonary: Yes no symptom reported Cardiovascular: Yes no symptom reported Gastrointestional: Yes: no symptom reported Genitourinary: Yes: no symptom reported Musculoskeletal: Yes: no symptom reported Psychiatric/Neurological: Yes: no symptom reported Endocrine: Yes: no symptom reported Hematologic/Lymphatic: Yes: no symptom reported Physical Exam General Appearance: no apparent distress Skin: warm Respiratory: bilateral CTA Heart: S1S2 Abdomen: soft Extremities: pulses present Neurology: alert, oriented Assessment Assessment IMP CHERI WITH CR UP TO 6.0 YESTERDAY BUT DOWN TO 4.4 TODAY S/P RIGHT URETERAL STENT FOR STONE RELATED OBSTRUCTION 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
[2017-02-15 11:00] VITALS: BP 181/69
[2017-02-15 15:00] VITALS: BP 144/78
[2017-02-15 19:00] VITALS: BP 170/81
[2017-02-15] MEDS: ACETAMINOPHEN 325 MG TABLET. PO PRN (20:37)
[2017-02-15] MEDS: ATORVASTATIN CALCIUM 10 MG TABLET. PO SCH (20:37)
[2017-02-15] MEDS ORDERED: TAMSULOSIN 0.4 MG CAP.ER.24H. PO SCH (21:00)
[2017-02-15 23:00] VITALS: BP 187/79
[2017-02-16] MEDS: hydrALAZINE 20 MG/ML VIAL. IVP PRN (00:14)
[2017-02-16] MEDS: IV NORMAL SALINE 1000ML BAG 1,000 ML IV SCH (01:14)
[2017-02-16 01:30] VITALS: BP 148/65
[2017-02-16 03:00] VITALS: BP 156/70
[2017-02-16] MEDS: HEPARIN PF for SUB-Q USE 5,000 UNIT/0.5 ML VIAL. SQ SCH (05:56)
[2017-02-16 07:00] VITALS: BP 148/73
[2017-02-16] MEDS: POLYETHYLENE GLYCOL 3350 17 GM PACKET. PO SCH (07:08)
[2017-02-16] MEDS: METOPROLOL TART IMMED RELEASE 25 MG TABLET. PO SCH (07:49)
[2017-02-16] MEDS: PIOGLITAZONE 15 MG TABLET. PO SCH (07:49)
[2017-02-16] MEDS: ASPIRIN ENTERIC COATED 81 MG TABLET.DR. PO SCH (07:49)
[2017-02-16] MEDS: ACETAMINOPHEN 325 MG TABLET. PO PRN ×2 (07:50→13:06)
[2017-02-16] MEDS: INSULIN DETEMIR 300 UNITS/3 ML INSULN.PEN. SQ SCH (07:57)
[2017-02-16] MEDS: INSULIN ASPART 300 UNITS/3 ML INSULN.PEN SQ SCH ×2 (08:28→13:04)
[2017-02-16 08:34] LABS: BASO % 1 % (0-3); EOS % 4 % (0-3); HEMATOCRIT 39.7 % (39.0-53.0); HEMOGLOBIN 12.8 g/dL (13.0-17.5); LYMPH # 1.9 x10^3/uL (1.0-4.8); LYMPH % 24 % (24-48); MEAN CORPUSCULAR HEMOGLOBIN 29 pg (25-35); MEAN CORPUSCULAR HGB CONC 32 g/dL (31-37); MEAN CORPUSCULAR VOLUME 89 fL (79-100); MONO % 8 % (0-9); NEUT % 64 % (31-73); PLATELET COUNT 206 x10^3/uL (140-400); RED BLOOD COUNT 4.48 x10^6/uL (4.30-5.70); RED CELL DISTRIBUTION WIDTH 16.2 % (11.5-14.5); WHITE BLOOD COUNT 8.2 x10^3/uL (4.0-11.0)
[2017-02-16 08:51] LABS: CALCIUM 8.4 mg/dL (8.5-10.1); CREATININE 3.9 mg/dL (0.7-1.3); GFR 14.9; POTASSIUM 4.7 mmol/L (3.5-5.1)
[2017-02-16] MEDS ORDERED: TAMS0.4C2 PO (10:20)
[2017-02-16 10:23] LABS: % BASOS 1 % (0-3); % EOS 2 % (0-5)
[2017-02-16 10:29] LABS: PLT ESTIMATE ADEQUATE (ADEQUATE)
[2017-02-16 11:00] VITALS: BP 181/79
[2017-02-16] MEDS ORDERED: METO50TA2 PO (11:06)
--- NOTE | 2017-02-16 11:14 | PDOC3 ---
Discharge Summary Visit Information Date of Admission: February 10, 2017 Date of Discharge: February 16, 2017 Admitting Diagnosis Comment: 1. SIRS POA, possible infectious in etiology, Pyelopnephritis 2. R/o mid ureter obstructive uropathy with some proximal hydronephrosis 3. SOliatry R kidney (atrophic left) 4. CKD stage 5 5. DM, HTN, CAD with cardiac stents chrocni stable 6,. DM 2 insulin requiring with nephropathy 7, Obesity \8. AOCD 9. BPH 10. Incidental CHolelithiasis 11. Diverticulosis 12. Benign R renal cyst 13. Intolerance to PCN (rash, nausea) Final Diagnosis Problems Medical Problems: (1) Hydronephrosis Status: Acute (2) Pyelonephritis Status: Acute (3) Renal failure Status: Acute Brief Hospital Course Allergies Allergies Coded Allergies Type Severity Reaction Last Updated Verified Penicillins Allergy Intermediate Hives 02/10/17 Yes Vital Signs Vital Signs Date Time Temp Pulse Resp B/P (MAP) Pulse Ox O2 Delivery O2 Flow Rate FiO2 02/16/17 08:10 Room Air 02/16/17 07:49 67 156/70 02/16/17 07:00 97.4 20 94 97.4 Lab Results Laboratory Tests Test 02/14/17 12:02 02/14/17 14:43 02/14/17 16:21 02/14/17 21:10 Glucose (Fingerstick) 243 mg/dL (70-99) 273 mg/dL (70-99) 174 mg/dL (70-99) 96 mg/dL (70-99) Test 02/15/17 02:45 02/15/17 07:42 02/15/17 11:21 02/15/17 16:33 White Blood Count 9.0 x10^3/uL (4.0-11.0) Red Blood Count 3.94 x10^6/uL (4.30-5.70) Hemoglobin 11.7 g/dL (13.0-17.5) Hematocrit 34.4 % (39.0-53.0) Mean Corpuscular Volume 88 fL (79-100) Mean Corpuscular Hemoglobin 30 pg (25-35) Mean Corpuscular Hemoglobin Concent 34 g/dL (31-37) Red Cell Distribution Width 16.4 % (11.5-14.5) Platelet Count 183 x10^3/uL (140-400) Neutrophils (%) (Auto) 66 % (31-73) Lymphocytes (%) (Auto) 21 % (24-48) Monocytes (%) (Auto) 9 % (0-9) Eosinophils (%) (Auto) 3 % (0-3) Basophils (%) (Auto) 1 % (0-3) Neutrophils # (Auto) 5.9 x10^3uL (1.8-7.7) Lymphocytes # (Auto) 1.9 x10^3/uL (1.0-4.8) Monocytes # (Auto) 0.8 x10^3/uL (0.0-1.1) Eosinophils # (Auto) 0.3 x10^3/uL (0.0-0.7) Basophils # (Auto) 0.0 x10^3/uL (0.0-0.2) Sodium Level 145 mmol/L (136-145) Potassium Level 4.5 mmol/L (3.5-5.1) Chloride Level 112 mmol/L (98-107) Carbon Dioxide Level 21 mmol/L (21-32) Anion Gap 12 (6-14) Blood Urea Nitrogen 70 mg/dL (8-26) Creatinine 4.4 mg/dL (0.7-1.3) Estimated GFR (Cockcroft-Gault) 13.0 Glucose Level 71 mg/dL (70-99) Calcium Level 8.0 mg/dL (8.5-10.1) Glucose (Fingerstick) 99 mg/dL (70-99) 195 mg/dL (70-99) 201 mg/dL (70-99) Test 02/15/17 20:42 02/16/17 07:08 02/16/17 08:05 Glucose (Fingerstick) 159 mg/dL (70-99) 161 mg/dL (70-99) White Blood Count 8.2 x10^3/uL (4.0-11.0) Red Blood Count 4.48 x10^6/uL (4.30-5.70) Hemoglobin 12.8 g/dL (13.0-17.5) Hematocrit 39.7 % (39.0-53.0) Mean Corpuscular Volume 89 fL (79-100) Mean Corpuscular Hemoglobin 29 pg (25-35) Mean Corpuscular Hemoglobin Concent 32 g/dL (31-37) Red Cell Distribution Width 16.2 % (11.5-14.5) Platelet Count 206 x10^3/uL (140-400) Neutrophils (%) (Auto) 64 % (31-73) Lymphocytes (%) (Auto) 24 % (24-48) Monocytes (%) (Auto) 8 % (0-9) Eosinophils (%) (Auto) 4 % (0-3) Basophils (%) (Auto) 1 % (0-3) Neutrophils # (Auto) 5.2 x10^3uL (1.8-7.7) Lymphocytes # (Auto) 1.9 x10^3/uL (1.0-4.8) Monocytes # (Auto) 0.7 x10^3/uL (0.0-1.1) Eosinophils # (Auto) 0.3 x10^3/uL (0.0-0.7) Basophils # (Auto) 0.0 x10^3/uL (0.0-0.2) Segmented Neutrophils % 68 % (35-66) Lymphocytes % 22 % (24-48) Monocytes % 7 % (0-10) Eosinophils % 2 % (0-5) Basophils % 1 % (0-3) Platelet Estimate Adequate (ADEQUATE) Sodium Level 144 mmol/L (136-145) Potassium Level 4.7 mmol/L (3.5-5.1) Chloride Level 110 mmol/L (98-107) Carbon Dioxide Level 21 mmol/L (21-32) Anion Gap 13 (6-14) Blood Urea Nitrogen 70 mg/dL (8-26) Creatinine 3.9 mg/dL (0.7-1.3) Estimated GFR (Cockcroft-Gault) 14.9 Glucose Level 186 mg/dL (70-99) Calcium Level 8.4 mg/dL (8.5-10.1) Laboratory Tests Test 02/15/17 11:21 02/15/17 16:33 02/15/17 20:42 02/16/17 07:08 Glucose (Fingerstick) 195 mg/dL (70-99) 201 mg/dL (70-99) 159 mg/dL (70-99) 161 mg/dL (70-99) Test 02/16/17 08:05 White Blood Count 8.2 x10^3/uL (4.0-11.0) Red Blood Count 4.48 x10^6/uL (4.30-5.70) Hemoglobin 12.8 g/dL (13.0-17.5) Hematocrit 39.7 % (39.0-53.0) Mean Corpuscular Volume 89 fL (79-100) Mean Corpuscular Hemoglobin 29 pg (25-35) Mean Corpuscular Hemoglobin Concent 32 g/dL (31-37) Red Cell Distribution Width 16.2 % (11.5-14.5) Platelet Count 206 x10^3/uL (140-400) Neutrophils (%) (Auto) 64 % (31-73) Lymphocytes (%) (Auto) 24 % (24-48) Monocytes (%) (Auto) 8 % (0-9) Eosinophils (%) (Auto) 4 % (0-3) Basophils (%) (Auto) 1 % (0-3) Neutrophils # (Auto) 5.2 x10^3uL (1.8-7.7) Lymphocytes # (Auto) 1.9 x10^3/uL (1.0-4.8) Monocytes # (Auto) 0.7 x10^3/uL (0.0-1.1) Eosinophils # (Auto) 0.3 x10^3/uL (0.0-0.7) Basophils # (Auto) 0.0 x10^3/uL (0.0-0.2) Segmented Neutrophils % 68 % (35-66) Lymphocytes % 22 % (24-48) Monocytes % 7 % (0-10) Eosinophils % 2 % (0-5) Basophils % 1 % (0-3) Platelet Estimate Adequate (ADEQUATE) Sodium Level 144 mmol/L (136-145) Potassium Level 4.7 mmol/L (3.5-5.1) Chloride Level 110 mmol/L (98-107) Carbon Dioxide Level 21 mmol/L (21-32) Anion Gap 13 (6-14) Blood Urea Nitrogen 70 mg/dL (8-26) Creatinine 3.9 mg/dL (0.7-1.3) Estimated GFR (Cockcroft-Gault) 14.9 Glucose Level 186 mg/dL (70-99) Calcium Level 8.4 mg/dL (8.5-10.1) Brief Hospital Course Mr. Clark is a 81 old male amditted for pyelonephritis, treated, HAd some encephalopathy POA, now i see him again on dc, signif improvement clinically,. BUt needs velasco catheter to home with urology ff up 1 week that already has been set up,. Nephro also set up for A nguyen on april, New meds, flomax, lortab per RN request and BB - needed to start 25 BID, BP high , needed to up the dose Dw RN and multiple [facility] Pt seen and examined DispO; 30 mins Discharge Information Condition at Discharge: Improved, Stable Disposition/Orders: D/C to Home Scheduled Aspirin (Aspir 81), 1 TAB PO DAILY, (Reported) Insulin Glargine,Hum.rec.anlog (Lantus Solostar), 20 UNIT SQ QHS, (Reported) Lovastatin (Lovastatin), 1 TAB PO DAILY, (Reported) Pioglitazone Hcl (Actos), 1 TAB PO DAILY, (Reported) Tamsulosin Hcl (Tamsulosin Hcl), 0.4 MG PO HS, (Reported) CLAUDIO LANIER MD February 16, 2017 11:14
--- NOTE | 2017-02-16 11:51 | PDOC ---
Renal-Progress Notes Subjective Notes Notes FEELS WELL History of Present Illness Hx of present illness BETTER Vitals Vitals Vital Signs Date Time Temp Pulse Resp B/P (MAP) Pulse Ox O2 Delivery O2 Flow Rate FiO2 02/16/17 08:10 Room Air 02/16/17 07:49 67 156/70 02/16/17 07:00 97.4 20 94 97.4 Weight Weight [ ] I.O. Intake and Output Intake and Output 02/16/17 07:00 Intake Total 1080 ml Output Total 1500 ml Balance -420 ml Intake Oral 1080 ml Output Urine Total 1500 ml Labs Labs Laboratory Tests Test 02/15/17 16:33 02/15/17 20:42 02/16/17 07:08 02/16/17 08:05 Glucose (Fingerstick) 201 mg/dL (70-99) 159 mg/dL (70-99) 161 mg/dL (70-99) White Blood Count 8.2 x10^3/uL (4.0-11.0) Red Blood Count 4.48 x10^6/uL (4.30-5.70) Hemoglobin 12.8 g/dL (13.0-17.5) Hematocrit 39.7 % (39.0-53.0) Mean Corpuscular Volume 89 fL (79-100) Mean Corpuscular Hemoglobin 29 pg (25-35) Mean Corpuscular Hemoglobin Concent 32 g/dL (31-37) Red Cell Distribution Width 16.2 % (11.5-14.5) Platelet Count 206 x10^3/uL (140-400) Neutrophils (%) (Auto) 64 % (31-73) Lymphocytes (%) (Auto) 24 % (24-48) Monocytes (%) (Auto) 8 % (0-9) Eosinophils (%) (Auto) 4 % (0-3) Basophils (%) (Auto) 1 % (0-3) Neutrophils # (Auto) 5.2 x10^3uL (1.8-7.7) Lymphocytes # (Auto) 1.9 x10^3/uL (1.0-4.8) Monocytes # (Auto) 0.7 x10^3/uL (0.0-1.1) Eosinophils # (Auto) 0.3 x10^3/uL (0.0-0.7) Basophils # (Auto) 0.0 x10^3/uL (0.0-0.2) Segmented Neutrophils % 68 % (35-66) Lymphocytes % 22 % (24-48) Monocytes % 7 % (0-10) Eosinophils % 2 % (0-5) Basophils % 1 % (0-3) Platelet Estimate Adequate (ADEQUATE) Sodium Level 144 mmol/L (136-145) Potassium Level 4.7 mmol/L (3.5-5.1) Chloride Level 110 mmol/L (98-107) Carbon Dioxide Level 21 mmol/L (21-32) Anion Gap 13 (6-14) Blood Urea Nitrogen 70 mg/dL (8-26) Creatinine 3.9 mg/dL (0.7-1.3) Estimated GFR (Cockcroft-Gault) 14.9 Glucose Level 186 mg/dL (70-99) Calcium Level 8.4 mg/dL (8.5-10.1) Test 02/16/17 11:07 Glucose (Fingerstick) 188 mg/dL (70-99) Micro Micro Microbiology 02/10/17 Urine Culture - Final, Complete 02/10/17 Urine Culture Result 1 (MANGO) - Final, Complete Review of Systems Constitutional: yes: alert, oriented Ears/Nose/Throat: Yes: no symptom reported Eyes: Yes: no symptom reported Pulmonary: Yes no symptom reported Cardiovascular: Yes no symptom reported Gastrointestional: Yes: no symptom reported Genitourinary: Yes: no symptom reported Musculoskeletal: Yes: no symptom reported Psychiatric/Neurological: Yes: no symptom reported Endocrine: Yes: no symptom reported Hematologic/Lymphatic: Yes: no symptom reported Physical Exam General Appearance: no apparent distress Skin: warm Respiratory: bilateral CTA Heart: S1S2 Abdomen: soft Extremities: pulses present Neurology: alert, oriented Assessment Assessment IMP CHERI WITH CR UP TO 6.0 YESTERDAY BUT DOWN TO 3.9 TODAY S/P RIGHT URETERAL STENT FOR STONE RELATED OBSTRUCTION CKD STAGE 4-5 WITH CR 3.5-4.0 ATROPHIED LEFT KIDNEY HYPERKALEMIA-RESOLVED URINARY RETENTION/BPH PLAN OK TO D/C FROM RENAL STANDPOINT D/C WITH [facility] PT ALREADY HAS OP RENAL F/W SET UP WITH MY PARTNER JORGE PHILLIPS MD February 16, 2017 11:51
== END 2017-02-16 13:15 | disposition home or self-care (01) | DRG 682 ==
LOC: ER 13:26 → 4 NORTH 14:07
PROVIDERS: ADMIT Internal Medicine; ATTEND Internal Medicine
PROC: BT1D1ZZ Fluoroscopy of Right Kidney, Ureter and Bladder using Low Osmolar Contrast (ICD-10-PCS; principal; 2017-02-12 11:00)
PROC: 0T768DZ Dilation of Right Ureter with Intraluminal Device, Via Natural or Artificial Opening Endoscopic (ICD-10-PCS; 2017-02-12 11:00)
DX: N17.9 Acute kidney failure, unspecified (principal); G93.40 Encephalopathy, unspecified; I12.0 Hypertensive chronic kidney disease with stage 5 chronic kidney disease or end stage renal disease; I16.1 Hypertensive emergency; R65.10 Systemic inflammatory response syndrome (SIRS) of non-infectious origin without acute organ dysfunction; N13.2 Hydronephrosis with renal and ureteral calculous obstruction; N12 Tubulo-interstitial nephritis, not specified as acute or chronic; E87.5 Hyperkalemia; E78.5 Hyperlipidemia, unspecified; E66.9 Obesity, unspecified; E11.22 Type 2 diabetes mellitus with diabetic chronic kidney disease; D63.8 Anemia in other chronic diseases classified elsewhere; I25.10 Atherosclerotic heart disease of native coronary artery without angina pectoris; K57.30 Diverticulosis of large intestine without perforation or abscess without bleeding; N40.1 Benign prostatic hyperplasia with lower urinary tract symptoms; N28.1 Cyst of kidney, acquired; N18.5 Chronic kidney disease, stage 5; R33.8 Other retention of urine; K59.00 Constipation, unspecified; K80.20 Calculus of gallbladder without cholecystitis without obstruction; R34 Anuria and oliguria; N13.1 Hydronephrosis with ureteral stricture, not elsewhere classified; E11.21 Type 2 diabetes mellitus with diabetic nephropathy; E11.65 Type 2 diabetes mellitus with hyperglycemia; R21 Rash and other nonspecific skin eruption; Z96.659 Presence of unspecified artificial knee joint; Z79.4 Long term (current) use of insulin; Z88.0 Allergy status to penicillin; Z90.79 Acquired absence of other genital organ(s); Z95.5 Presence of coronary angioplasty implant and graft; Z68.29 Body mass index [BMI] 29.0-29.9, adult; Z82.49 Family history of ischemic heart disease and other diseases of the circulatory system
CPT/HCPCS: 36415; 51702; 74000; 74176; 74420; 76770; 80048; 81001; 82947; 83036; 85007; 85027; 85651; 87086; 96365; 96375; C1769; C2617; J0360; J0690; J0744; J1100; J1815; J2270; J2405; J2704; J7030; Q9967; 97110; 97116; 97530; 99285-25

== ENCOUNTER 2017-02-23 08:54 | Observation (INO) | payer MEDICARE, OTHER ==
[2017-02-23] VITALS (10 sets, daily range): BP systolic 146–163; BP diastolic 64–80
[~2017-02-23] VITALS: Ht 172.7 cm; Wt 83.0 kg
[~2017-02-23 08:54] MED LIST changes: +CYAN10005 PO; +HYDROmorphone 2 MG/ML VIAL IV PRN; +IV RINGERS,LACTATED 1000ML 1,000 ML IV SCH; +LIDOCAINE 1% 1 ML SYRINGE. ID PRN; +METO50TA2 PO; +MULT1TAB52 PO; +ONDANSETRON PF 4 MG/2 ML VIAL. IV PRN; +PROCHLORPERAZINE 10 MG/2 ML VIAL. IV PRN; +TAMS0.4C2 PO; +fentaNYL PF VIAL 100 MCG/2 ML VIAL IV PRN
[2017-02-23 10:00] LABS: BILIRUBIN,URINE NEGATIVE (NEG); GLUCOSE,URINE NEGATIVE (NEG); NITRITE,URINE NEGATIVE (NEG); PH,URINE 5.5; PROTEIN,URINE 100 mg/dL (NEG-TRACE); UROBILINOGEN,URINE 0.2 mg/dL (0.2 mg/dL)
[2017-02-23 10:04] LABS: BASO % 1 % (0-3); EOS % 3 % (0-3); HEMATOCRIT 36.5 % (39.0-53.0); LYMPH # 2.4 x10^3/uL (1.0-4.8); LYMPH % 23 % (24-48); MEAN CORPUSCULAR HEMOGLOBIN 29 pg (25-35); MEAN CORPUSCULAR HGB CONC 33 g/dL (31-37); MEAN CORPUSCULAR VOLUME 88 fL (79-100); MONO % 10 % (0-9); NEUT % 63 % (31-73); PLATELET COUNT 236 x10^3/uL (140-400); RED BLOOD COUNT 4.17 x10^6/uL (4.30-5.70); RED CELL DISTRIBUTION WIDTH 15.5 % (11.5-14.5); WHITE BLOOD COUNT 10.1 x10^3/uL (4.0-11.0)
[2017-02-23 10:11] LABS: RBC,URINE 20-40 /HPF (0-2)
[2017-02-23 10:12] LABS: BACTERIA,URINE FEW /HPF (0-FEW)
[2017-02-23 10:16] LABS: CALCIUM 8.6 mg/dL (8.5-10.1); CREATININE 3.9 mg/dL (0.7-1.3); GFR 14.9; POTASSIUM 4.8 mmol/L (3.5-5.1)
[2017-02-23] MEDS ORDERED: IOHEXOL 300 MG/ML 50 ML VIAL. ONE (10:20)
[2017-02-23] MEDS ORDERED: LIDOCAINE 2% PF Vial for OR 5 ML VIAL. ONE (10:21)
[2017-02-23] MEDS ORDERED: DESFLURANE > 120 MINUTES IH ONE (10:21)
[2017-02-23] MEDS ORDERED: ONDANSETRON PF 4 MG/2 ML VIAL. ONE (10:21)
[2017-02-23] MEDS ORDERED: DEXAMETHASONE SOD PHOS 20 MG/5 ML VIAL. ONE (10:21)
[2017-02-23] MEDS ORDERED: PROPOFOL 20 ML IV ONE (10:21)
[2017-02-23] MEDS ORDERED: fentaNYL PF VIAL 100 MCG/2 ML VIAL ONE (10:56)
[2017-02-23] MEDS ORDERED: GENTAMICIN SULFATE 80 MG in IV NORMAL SALINE 100ML 100 ML IV ONE (11:15)
[2017-02-23] MEDS ORDERED: FUROSEMIDE 40 MG/4 ML VIAL. ONE (11:34)
[2017-02-23] MEDS ORDERED: PHENYLEPHRINE in 0.9% NACL PF 1 MG/10 ML DISP.SYRIN. IV ONE (11:39)
[2017-02-23] MEDS ORDERED: GLYCOPYRROLATE 1 MG/5 ML VIAL. ONE (12:14)
[2017-02-23] MEDS ORDERED: ROCURONIUM 50 MG/5 ML VIAL. ONE (12:14)
[2017-02-23] MEDS ORDERED: NEOSTIGMINE 10 MG/10 ML VIAL. ONE (12:14)
[2017-02-23] MEDS ORDERED: ePHEDrine PF IN SALINE 50 MG/5 ML DISP.SYRIN IV ONE (12:24)
--- NOTE | 2017-02-23 12:58 | PDOC ---
BRIEF OPERATIVE NOTE Date: Feb 23, 2017 Pre-Op Diagnosis Right ureteral calculus Post-Op Diagnosis same, plus entrapped right ureteral stent Procedure Performed Cystoscopy, diagnostic right ureteroscopy attempted removal of entrapped right ureteral stent, placement of additional right ureteral stent 4.8 FR by 26 cm Surgeon Del Anesthesia Type: General Blood Loss minimal Specimens Obtained none Findings entrapped right ureteral stent (graspers failed to remove) Complications inadequate graspers Additional Remarks will put in observation bed until this evening NAPOLEON CORNELL DO Feb 23, 2017 12:58
[2017-02-23] MEDS ORDERED: 0.9 % SODIUM CHLORIDE 10 ML DISP.SYRIN. IV PRN (13:00)
[2017-02-23] MEDS ORDERED: MAG HYDROX/ALUMINUM HYD/SIMETH 30 ML ORAL.SUSP PO PRN (13:00)
[2017-02-23] MEDS ORDERED: NALOXONE 0.4 MG/ML VIAL. IV PRN (13:00)
[2017-02-23] MEDS ORDERED: HYDROcodone/APAP 5/325MG 1 TAB TABLET PO PRN (13:00)
[2017-02-23] MEDS: MORPHINE SULFATE 2 MG/ML DISP.SYRIN. IV PRN ×2 (13:32→13:49)
[2017-02-23] MEDS: KETOROLAC 15 MG/ML VIAL. IV PRN (15:00)
--- NOTE | 2017-02-23 15:20 | OP ---
DATE OF SURGERY: 02/23/2017 PREOPERATIVE DIAGNOSIS: Distal right ureteral calculus. POSTOPERATIVE DIAGNOSIS: Entrapped right ureteral stent. PROCEDURE: Cystoscopy, diagnostic ureteroscopy, attempted removal of right ureteral stent, and placement of a second right ureteral stent (4.8 Andorran x 26 cm). SURGEON: Napoleon Cornell DO. ANESTHESIA: General. INDICATIONS AND JUDGMENT: This is an 81-year-old male with a history of a distal right ureteral calculus. He previously underwent cystoscopy and stent placement. It was decided to bring him back today for stent removal and ureteroscopy, holmium laser lithotripsy and extracting distal right ureteral calculus. The procedure was explained to the patient, as well as possible risks and complications. He appeared to understand and was agreeable. DESCRIPTION OF PROCEDURE: The patient was preloaded with IV Levaquin and 80 mg of gentamicin. He was taken to the operating room and placed on the operating room table in a supine position, given a general anesthetic, and then placed in a dorsolithotomy position using Watson stirrups since we did not have a cystoscopy table. A C-arm was then moved into position. On fluoroscopy, it appeared that the distal portion of the stent had migrated proximally out of the bladder. Rigid cystoscopy was performed. The prostate was not all that obstructing in nature. The scope was advanced into the bladder. The distal portion of the right ureteral stent was not identified within the bladder. The right ureteral orifice was then dilated and I advanced a Guthrie rigid ureteroscope up the ureter and I could see the distal portion of the entrapped right ureteral stent, which was approximately 2-3 cm proximal to the right ureteral orifice. I attempted to grasp it with triceps graspers, but they were not strong enough to remove the stent. I then utilized a metal-type grasper. Unfortunately, it had short jaws. I could grasp the stent, but when I tried to extract the stent, the jaws of the metal grasper would slip and fall off. I attempted this multiple times, but I was unable to remove the stent because I did not have anything strong enough to pull off the distal portion of the stent while I tried to extract it. We did not have any graspers that were strong enough; therefore, I decided to place an additional ureteral stent in the meantime to protect the ureter from swelling and edema, and hopefully to dilate the ureter to facilitate removal of the entire stent at a later date. I had previously dilated the ureter with a 4-cm ____ balloon and then later, I dilated it with a 10-cm ____ balloon, but I was still unable to get the stent out. The ureteroscope was removed. I then backloaded the Glidewire into the cystoscope and then I advanced a 4.8-Andorran x 26-cm double-J ureteral stent over the Glidewire up into the kidney. The positioning appeared to be satisfactory. The distal pigtail was in the bladder. The instruments were removed and the patient tolerated the procedure well. I left an indwelling Kerns catheter in the bladder at the conclusion and connected it to a dependent drainage bag. The patient tolerated the procedure well and was sent to recovery room in satisfactory condition. I am going to watch him for a few hours in observation bed and hopefully let him go home later tonight without the Kerns catheter. NAPOLEON CORNELL DO DR: INES/weston JOB#: [id number] / [id number]
--- NOTE | 2017-02-23 17:19 | PDOC ---
Provider Note Provider Note Urology: patient nauseated following surgery, afebrile will keep in hospital overnight Plan: resume home medications continue Flomax discussed surgery findings today (trapped ureteral stent) remove velasco in AM NAPOLEON CORNELL DO Feb 23, 2017 17:19
[2017-02-23] MEDS: ASPIRIN ENTERIC COATED 81 MG TABLET.DR. PO SCH (18:00)
[2017-02-23] MEDS: CYANOCOBALAMIN (VITAMIN B-12) 1,000 MCG TABLET. PO SCH (18:23)
[2017-02-23] MEDS: METOPROLOL TART IMMED RELEASE 50 MG TABLET. PO SCH (20:59)
[2017-02-23] MEDS ORDERED: ATORVASTATIN CALCIUM 10 MG TABLET. PO SCH (21:00)
[2017-02-23] MEDS ORDERED: TAMSULOSIN 0.4 MG CAP.ER.24H. PO SCH ×2 (21:00)
[2017-02-23] MEDS: IV RINGERS,LACTATED 1000ML 1,000 ML IV SCH (22:11)
[2017-02-24] MEDS: ONDANSETRON PF 4 MG/2 ML VIAL. IV PRN ×3 (01:16→16:33)
[2017-02-24] MEDS: IV RINGERS,LACTATED 1000ML 1,000 ML IV SCH ×2 (02:08→15:28)
[2017-02-24 03:00] VITALS: BP 141/62
[2017-02-24 07:00] VITALS: BP 145/76
[2017-02-24] MEDS: ASPIRIN ENTERIC COATED 81 MG TABLET.DR. PO SCH (08:46)
[2017-02-24] MEDS: CYANOCOBALAMIN (VITAMIN B-12) 1,000 MCG TABLET. PO SCH (08:47)
[2017-02-24] MEDS: METOPROLOL TART IMMED RELEASE 50 MG TABLET. PO SCH (08:47)
[2017-02-24] MEDS ORDERED: NON FORMULARY ITEM (Lovastatin 1 TAB) PO SCH (09:00)
[2017-02-24] MEDS ORDERED: INSULIN DETEMIR 300 UNITS/3 ML INSULN.PEN. SQ SCH ×2 (09:00)
[2017-02-24] MEDS ORDERED: PIOGLITAZONE 15 MG TABLET. PO SCH (09:00)
[2017-02-24] MEDS ORDERED: MULTIVITAMIN with MINERAL TABLET. PO SCH (09:00)
[2017-02-24 11:00] VITALS: BP 162/71
[2017-02-24 15:00] VITALS: BP 167/75
[2017-02-24] MEDS: KETOROLAC 15 MG/ML VIAL. IV PRN (17:03)
== END 2017-02-24 19:15 | disposition home or self-care (01) ==
LOC: SURG 08:54 → 4 NORTH 13:18
PROVIDERS: ADMIT Urology; ATTEND Urology
DX: N20.1 Calculus of ureter (principal); W01.0XXA Fall on same level from slipping, tripping and stumbling without subsequent striking against object, initial encounter
CPT/HCPCS: 36415; 52000; 76000; 80048; 81001; 82962; 85027; 87086; 96374; 96375; 96376; C1726; C1769; C2617; G0378; G0379; J0690; J1100; J1580; J1815; J1885; J1940; J2270; J2370; J2405; J2704; J2710; J3010; J3490; J7120; Q9967

== ENCOUNTER 2017-03-01 13:45 | Observation (INO) | payer MEDICARE, OTHER ==
[~2017-03-01] VITALS: Ht 172.7 cm; Wt 80.3 kg
[~2017-03-01 13:45] MED LIST changes: +IOHEXOL 300 MG/ML 50 ML VIAL. ONE; +MORPHINE SULFATE 2 MG/ML DISP.SYRIN. IV PRN; -PIOG45TA19 PO; +PIOG45TA40 PO
[2017-03-01 14:57] LABS: BASO # 0.1 x10^3/uL (0.0-0.2); BASO % 1 % (0-3); EOS % 3 % (0-3); HEMATOCRIT 38.4 % (39.0-53.0); HEMOGLOBIN 12.6 g/dL (13.0-17.5); LYMPH # 2.2 x10^3/uL (1.0-4.8); LYMPH % 25 % (24-48); MEAN CORPUSCULAR HEMOGLOBIN 29 pg (25-35); MEAN CORPUSCULAR HGB CONC 33 g/dL (31-37); MEAN CORPUSCULAR VOLUME 88 fL (79-100); MONO % 10 % (0-9); NEUT % 61 % (31-73); PLATELET COUNT 225 x10^3/uL (140-400); RED BLOOD COUNT 4.36 x10^6/uL (4.30-5.70); RED CELL DISTRIBUTION WIDTH 15.3 % (11.5-14.5); WHITE BLOOD COUNT 8.7 x10^3/uL (4.0-11.0)
[2017-03-01 14:58] LABS: BILIRUBIN,URINE NEGATIVE (NEG); GLUCOSE,URINE NEGATIVE (NEG); NITRITE,URINE NEGATIVE (NEG); PH,URINE 6.5; PROTEIN,URINE 100 mg/dL (NEG-TRACE); UROBILINOGEN,URINE 0.2 mg/dL (0.2 mg/dL)
[2017-03-01 15:11] LABS: BACTERIA,URINE 0 /HPF (0-FEW); RBC,URINE >40 /HPF (0-2)
[2017-03-01 15:28] LABS: CALCIUM 8.8 mg/dL (8.5-10.1); CREATININE 3.7 mg/dL (0.7-1.3); GFR 15.8; POTASSIUM 4.5 mmol/L (3.5-5.1)
[2017-03-01] MEDS ORDERED: PROPOFOL 20 ML IV ONE (15:29)
[2017-03-01] MEDS ORDERED: ONDANSETRON PF 4 MG/2 ML VIAL. ONE (15:29)
[2017-03-01] MEDS ORDERED: LIDOCAINE 2% PF Vial for OR 5 ML VIAL. ONE (15:29)
[2017-03-01] MEDS ORDERED: ONDANSETRON PF 4 MG/2 ML VIAL. IV PRN (17:00)
[2017-03-01] MEDS ORDERED: ACETAMINOPHEN 325 MG TABLET. PO PRN (17:00)
[2017-03-01] MEDS ORDERED: NALOXONE 0.4 MG/ML VIAL. IV PRN (17:00)
[2017-03-01] MEDS ORDERED: MAG HYDROX/ALUMINUM HYD/SIMETH 30 ML ORAL.SUSP PO PRN (17:00)
[2017-03-01] MEDS ORDERED: MAGNESIUM HYDROXIDE 2,400 MG/30 ML ORAL.SUSP. PO PRN (17:00)
[2017-03-01] MEDS ORDERED: 0.9 % SODIUM CHLORIDE 10 ML DISP.SYRIN. IV PRN (17:00)
[2017-03-01] MEDS ORDERED: HYDROcodone/APAP 5/325MG 1 TAB TABLET PO PRN (17:00)
[2017-03-01] MEDS: fentaNYL PF VIAL 100 MCG/2 ML VIAL IV PRN ×2 (17:01→17:11)
--- NOTE | 2017-03-01 17:10 | PDOC ---
BRIEF OPERATIVE NOTE Date: Mar 01, 2017 Pre-Op Diagnosis Entrapped right ureteral stent, distal right ureteral calculus Post-Op Diagnosis same Procedure Performed Ureteroscopy removal right entrapped ureteral stent extraction of distal right ureteral calculus fulguration prostate Surgeon Del Anesthesia Type: General Blood Loss less than 100cc Specimens Obtained stone was not sent to lab, dropped on floor Findings same Complications none Additional Remarks observation bed NAPOLEON CORNELL DO Mar 01, 2017 17:10
[2017-03-01 18:12] VITALS: BP 199/90
[2017-03-01] MEDS: IV NORMAL SALINE 1000ML BAG 1,000 ML IV SCH (18:43)
[2017-03-01] MEDS ORDERED: METOPROLOL TART IMMED RELEASE 25 MG TABLET. PO ONE (18:45)
[2017-03-01] MEDS: CYANOCOBALAMIN (VITAMIN B-12) 1,000 MCG TABLET. PO SCH (18:48)
[2017-03-01 18:50] VITALS: BP 164/74
[2017-03-01 19:15] VITALS: BP 136/69
[2017-03-01] MEDS ORDERED: TAMSULOSIN 0.4 MG CAP.ER.24H. PO SCH (21:00)
[2017-03-01] MEDS ORDERED: ATORVASTATIN CALCIUM 10 MG TABLET. PO SCH (21:00)
[2017-03-01] MEDS: INSULIN DETEMIR 300 UNITS/3 ML INSULN.PEN. SQ SCH (21:14)
[2017-03-01] MEDS: TAMSULOSIN 0.4 MG CAP.ER.24H. PO SCH (21:14)
[2017-03-01] MEDS: METOPROLOL TART IMMED RELEASE 50 MG TABLET. PO SCH (21:15)
[2017-03-01] MEDS: SENNOSIDES/DOCUSATE 8.6/50MG TABLET. PO SCH (21:15)
--- NOTE | 2017-03-01 21:38 | OP ---
DATE OF SURGERY: 03/01/2017 PREOPERATIVE DIAGNOSES: Entrapped right ureteral stent, history of right ureteral calculus. POSTOPERATIVE DIAGNOSES: Entrapped right ureteral stent, history of right ureteral calculus. PROCEDURE: Ureteroscopy, extraction of entrapped right ureteral stent, extraction of distal right ureteral calculus. SURGEON: Napoleon Cornell D.O. ANESTHESIA: General. INDICATIONS AND JUDGMENT: This is an 81-year-old male with a history of distal right ureteral calculus. He previously underwent cystoscopy, stent placement. Last week, he was brought back to outpatient surgery to undergo ureteroscopy, stone extraction; however, the patient's stent had migrated proximally and when I introduced the rigid ureteroscope in the distal right ureter, the stent was coiled up in the distal ureter. I tried multiple attempts with different types of graspers and could not remove the stent and finally put a second stent up alongside the entrapped stent and allow the patient to go home. The patient was brought back to outpatient surgery today to undergo removal of both stents. I also brought different types of graspers to help may remove the entrapped right ureteral stent. OPERATION PROCEDURE: The patient was preloaded with a gram of Rocephin and he was taken to the operating room and placed on the operating room table in supine position, given a general anesthetic and then placed in a dorsal lithotomy position using Watson stirrups. A C-arm was moved into position. Rigid cystoscopy was performed. The urethra was normal in course and caliber. The prostate was visualized. He has a small prostate about 20 grams. He does not appear to be visually obstructed. There are some hemorrhagic blood vessels at the bladder neck. They were bleeding slightly. The right ureteral stent that had pigtail in the bladder was grasped with grasping forceps and brought out to the urethra. I then passed a Glidewire through the lumen of this stent and then removed the stent. I then passed the rigid Huang ureteroscope up the right ureteral orifice to the level of the entrapped right ureteral stent. I then passed the triceps graspers and after several attempts, I was able to grasp the distal portion of the entrapped right ureteral stent and slowly withdrew it and was able to successfully remove it. I then advanced the rigid Huang ureteroscope once again up the right ureteral orifice and I did see the ____ calculus. It was grasped with triceps graspers and brought out into the bladder. At that point ____ off graspers. I went back into the bladder with a 21-Bahraini rigid cystoscope that find a calculus and removed it. The patient's bladder wall was heavily trabeculated and after looking for some time, I could not find the stone. I think its hiding and wanted a trabeculation for, perhaps it flushed out and we did not catch it, but I was not able to find it. I then used a Bugbee electrode and these bleeding vessels were bleeding at the bladder neck. Those were cauterized and hemostasis was satisfactory. All the instruments were removed. I then placed a 20-Bahraini 2-way Kerns catheter into the urethra and into the bladder without difficulty. The 10 mL balloon was filled and this was connected to dependent drainage bag. Both stents are now removed. The ureteral calculus was removed. I left the Kerns catheter in because he has a history of postop urinary retention. We will watch him overnight in observation bed and remove his Kerns catheter at 7:00 tomorrow morning for a voiding trial. We will make sure that he gets his Flomax tonight and tomorrow morning. NAPOLEON CORNELL DO DR: INES/weston JOB#: [id number] / [id number]
[2017-03-01 23:02] VITALS: BP 159/80
[2017-03-02 02:52] VITALS: BP 159/77
[2017-03-02] MEDS: IV NORMAL SALINE 1000ML BAG 1,000 ML IV SCH ×2 (06:25→08:47)
[2017-03-02 07:00] VITALS: BP 154/79
[2017-03-02] MEDS: INSULIN DETEMIR 300 UNITS/3 ML INSULN.PEN. SQ SCH (08:53)
[2017-03-02] MEDS: CYANOCOBALAMIN (VITAMIN B-12) 1,000 MCG TABLET. PO SCH (08:54)
[2017-03-02] MEDS: METOPROLOL TART IMMED RELEASE 50 MG TABLET. PO SCH (08:56)
[2017-03-02] MEDS: TAMSULOSIN 0.4 MG CAP.ER.24H. PO SCH (08:56)
[2017-03-02] MEDS: SENNOSIDES/DOCUSATE 8.6/50MG TABLET. PO SCH (08:56)
[2017-03-02] MEDS ORDERED: ASPIRIN ENTERIC COATED 81 MG TABLET.DR. PO SCH (09:00)
[2017-03-02] MEDS ORDERED: MULTIVITAMIN with MINERAL TABLET. PO SCH (09:00)
[2017-03-02] MEDS ORDERED: PIOGLITAZONE 15 MG TABLET. PO SCH (09:00)
[2017-03-02 11:00] VITALS: BP 143/62
[2017-03-02 15:00] VITALS: BP 126/56
--- NOTE | 2017-03-02 15:57 | PDOC ---
Provider Note Provider Note Urology: Patient underwent ureteroscopy removal of entrapped ureteral stent, and removal of ureteral calculus. Velasco removed this AM, has not voided yet in spite of Flomax b.i.d. Will give a little more time, may need to go home with velasco and catheter plug. NAPOLEON CORNELL DO Mar 02, 2017 15:57
[2017-03-02] MEDS ORDERED: LIDOCAINE 2% JELLY 6ML IN APPLICATOR. MM ONE (17:00)
[2017-03-02] MEDS ORDERED: CIPR250T30 PO (17:28)
--- NOTE | 2017-03-03 00:16 | DS ---
DATE OF DISCHARGE: 03/02/2017 FINAL DIAGNOSES: 1. Right ureteral calculus. 2. Entrapped right ureteral stent. 3. Chronic urinary retention. OPERATIONS AND PROCEDURES: The patient underwent ureteroscopy, removal of right entrapped ureteral stent, removal of right ureteral calculus. This is summary of the patient's hospital course. A well-documented history and physical can be found in the body of the chart. HOSPITAL COURSE: This is an 81-year-old male with a history of right ureteral calculus. He previously underwent cystoscopy and stent placement on the right side. The patient previously underwent outpatient surgery and I attempted to remove his entrapped right ureteral stent, which had migrated proximally out of the bladder and that was unsuccessful. He was brought back to outpatient surgery on 03/01/2017, and under anesthesia, he underwent ureteroscopy and successful removal of his entrapped right ureteral stent and successful removal of the ureteral calculus. At the conclusion of the procedure, indwelling Kerns was placed and connected to a dependent drainage bag. The patient has had a history of chronic urinary retention and every time we removed his Kerns catheter, we had to replace it. Therefore, I kept him overnight. We removed the Kerns catheter the morning of 03/02/2017. He had been given Flomax the night before as well as Flomax the next morning. The catheter was removed. The patient went throughout the day and mostly afternoon and was unable to void successfully. Therefore, the nursing staff replaced his Kerns catheter and at this time connected it to a catheter plug instead of a dependent drainage bag. The patient was then discharged home late afternoon on 03/02/2017, with the Kerns catheter connected to a catheter plug. He is going to resume his home medications. He was also sent home on Cipro 250 mg 1 p.o. b.i.d. for 5 days. We will have to remove his Kerns catheter for voiding trial on an outpatient basis. NAPOLEON CORNELL DO DR: INES/weston JOB#: [id number] / [id number]
[2017-03-06 17:11] LABS: COLOR Black (.); STONE WEIGHT <10 mg (.)
== END 2017-03-02 18:31 | disposition home or self-care (01) ==
LOC: SURG 13:45 → 4 NORTH 17:03
PROVIDERS: ADMIT Urology; ATTEND Urology
DX: T83.89XA Other specified complication of genitourinary prosthetic devices, implants and grafts, initial encounter (principal); N20.1 Calculus of ureter; R33.9 Retention of urine, unspecified; Z87.442 Personal history of urinary calculi; Y83.8 Other surgical procedures as the cause of abnormal reaction of the patient, or of later complication, without mention of misadventure at the time of the procedure; Y92.89 Other specified places as the place of occurrence of the external cause
CPT/HCPCS: 36415; 52352; 76000; 80048; 81001; 82365; 82962; 85027; 87086; 96372; C1769; G0378; G0379; J0690; J1815; J2405; J2704; J3010; J7030; Q9967